=== PATIENT | female | born 1950 | race Caucasian/White ===

== ENCOUNTER → 2021-12-25 10:50 | Outpatient (BNVA) | payer MEDICARE, SELFPAY | PROVIDERS: PCP Internal Medicine; Visit Provider Nurse Practitioner Family | DX: G20 Parkinson's disease (principal) | CPT/HCPCS: 99212 ==

== ENCOUNTER → 2022-04-30 10:30 | Outpatient (BNVA) | payer MEDICARE, SELFPAY | PROVIDERS: PCP Internal Medicine; Visit Provider Nurse Practitioner Family | DX: G20 Parkinson's disease (principal) | CPT/HCPCS: 99212 ==

== ENCOUNTER → 2022-09-03 11:01 | Outpatient (BNVA) | payer MEDICARE, SELFPAY | PROVIDERS: PCP Family Medicine; Visit Provider Nurse Practitioner Family | DX: G20 Parkinson's disease (principal); R29.898 Other symptoms and signs involving the musculoskeletal system | CPT/HCPCS: 99212 ==

== ENCOUNTER → 2022-12-31 10:59 | Outpatient (BNVA) | payer MEDICARE, SELFPAY | PROVIDERS: PCP Family Medicine; Visit Provider Nurse Practitioner Family | DX: G20 Parkinson's disease (principal); I49.9 Cardiac arrhythmia, unspecified; E03.9 Hypothyroidism, unspecified; R29.898 Other symptoms and signs involving the musculoskeletal system | CPT/HCPCS: 99212 ==

== ENCOUNTER 2023-05-02 11:12 | Outpatient (AMB) | payer MEDICARE, SELFPAY ==
[2023-05-02 11:15] VITALS: BP 140/80; PULSE 81; O2SAT 97; BMI 29.3
--- NOTE | 2023-05-02 11:15 | MHC.OFFVIS ---
Intake Vital Signs 05/02/23 11:15 Height 5 ft 1 in Weight 155 lb 4 oz BMI 29.3 BP 140/80 H Blood Pressure Location Rt brachial Position Sitting Pulse 81 Pulse Source Pulse Oximeter Pulse Oximetry (%) 97 Oxygen Delivery Method Room Air Intake Visit Reasons: 4m Follow up parkinson Intake Note: Pt presents as a 4 month f/u for Parkinsons. Pt states shes doing good. Things are about the same. Tube Backer Required: No Allergies No Known Allergies Allergy (Verified 05/02/23 11:18) HPI HPI Comments History of Present Illness Details 73-yr-old female presents for f/u visit. Pt denies any significant interval medical history changes. Pt states she believes her echo stress test was normal. Pt's current PD medication regimen: Rasagiline 1mg qd. Pt's primary concerns are: No particular concerns Right-handed pt. ADL's: Ind Swallowing:? No issues Cough:? No issues Drooling: Some drooling at night. Orthostatic lightheadedness:? Mild- stands slowly Constipation:? None Freezing:? Does not occur Stiffness: Noticed some increased stiffness Tremor: LUE tremor stable. Noticing an intermittent rest RUE tremor as well now. Falls:? None Hallucinations:? None Memory:? Memory is good Sleep:? Sleeping well- but has more nocturia. Denies snoring. 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 Derm appt w/ Dr Kemp. ? PFS Medical History Rosacea Family History Mother Breast cancer Father Heart attack Social History (Updated 05/02/23 @ 11:21 by Porsha Arias CMA) Household Members: None Alcohol intake: current Alcohol intake frequency: holidays/special occasions only Patient Tobacco Use Status: Never used Tobacco Current occupational status: retired Review of Systems Const All systems reviewed & are unremarkable except as noted in HPI and below Physical Exam Vital Signs: Last Vital Signs Pulse 81 05/02/23 11:15 BP 140/80 H 05/02/23 11:15 Pulse Ox 97 05/02/23 11:15 Oxygen Delivery Method Room Air 05/02/23 11:15 BMI result Body Mass Index 29.3 Const General: cooperative and no acute distress Resp Effort & Inspection: normal respiratory effort and able to speak in complete sentences Neuro Other: Expression:? Mild decreased expression and blink, mild left facial droop Voice:? Soft voice Tremor:? Left upper extremity rest and spread of movement tremor, mild intermittent RUE rest tremor Tone:?Left > Right upper extremity tone FFM:? Mildly decreased in left upper extremity Foot taps:? Mildly decrease in left lower extremity Gait:? Stands okay, decreased arm swing, stride okay General: patient oriented x3 and CN's II-XI intact bilaterally Cognition (Neuro): normal cognition Motor exam (neuro): 5/5 motor strength present throughout Assessment & Plan Assessment & Plan (1) Parkinson's disease: Code(s): G20 - Parkinson's disease (2) Rigidity: Code(s): R29.898 - Other symptoms and signs involving the musculoskeletal system Plan Continue?Rasagiline 1mg qd. Continue regular exercise- walking and yoga. Dermatology- routine f/u. f/u in 4 months or sooner prn new/worsening s/s. Coding Level of Care Code Est Pt Level 4 (06007) Diagnoses Parkinson's disease G20 Rigidity R29.898
== END 2023-05-02 11:42 | disposition home or self-care (01) ==
PROVIDERS: Visit Provider Nurse Practitioner Family
DX: G20 Parkinson's disease (principal); R29.898 Other symptoms and signs involving the musculoskeletal system
CPT/HCPCS: 99214

== ENCOUNTER → 2023-05-02 11:12 | Outpatient (BNVA) | payer MEDICARE, SELFPAY | PROVIDERS: Visit Provider Nurse Practitioner Family | DX: G20 Parkinson's disease (principal); R29.898 Other symptoms and signs involving the musculoskeletal system | CPT/HCPCS: 99212 ==

== ENCOUNTER 2023-09-02 11:28 | Outpatient (AMB) | payer MEDICARE, SELFPAY ==
--- NOTE | 2023-09-02 11:33 | A.OFFVIS_ITS ---
Intake Vital Signs 09/02/23 11:36 Height 5 ft 1 in Weight 157 lb 2 oz BMI 29.7 BP 126/74 Blood Pressure Location Rt brachial Position Sitting Pulse 80 Pulse Source Pulse Oximeter Pulse Oximetry (%) 97 Oxygen Delivery Method Room Air Intake Visit Reasons: 4m Follow up parkinson-Confirmed Intake Note: Patient presents for 4 month follow up. Allergies No Known Allergies Allergy (Verified 09/02/23 11:39) Medication List - Last Reconciled 09/02/23 by YU Dawn albuterol sulfate 90 mcg/actuation 0 mcg inhalation amlodipine 10 mg PO DAILY benzoyl peroxide 5% (Acne Medication) topical clindamycin phosphate 1% 1 appl topical DAILY fluticasone propionate 110 mcg/actuation (Flovent HFA) 2 puffs inhalation BID levothyroxine 25 mcg PO DAILY ofxpdvlq-hocnrtb-aytz-lutein tabs PO DAILY rasagiline 1 mg PO DAILY 30 days rivaroxaban (Xarelto) 20 mg PO DAILY HPI HPI Comments History of Present Illness Details 73-yr-old female presents for f/u visit. Pt did have a benign skin growth excised from her back through derm. Pt's current PD medication regimen: Rasagiline 1mg qd. Pt's primary concerns are: Increased stiffness. Pt curious about how her PD will progress Right-handed pt. ADL's: Ind Swallowing:?No issues Cough:? No issues Drooling: Some drooling at night. Orthostatic lightheadedness:?Denies Constipation:? None Freezing:? Does not occur Stiffness: More stiffness when walking. May be stiffer and lsower after sitting for a while or now even getting out of the car. Notices that walking with a shopping cart makes a difference. Tremor: LUE tremor stable. Noticing more RUE tremor. Falls:? None Hallucinations:?In May, she did she see a white tent in her neighbor's yard- she thinks this might have been a hallucination. Memory:?Memory is good- keeps lists but always has. Sleep:? Sleeping well. Denies snoring. 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 [facility] Medical History (Updated 09/02/23 @ 12:19 by YU Dawn) Parkinson's disease Rosacea Family History Mother Breast cancer Father Heart attack Household Members: None Alcohol intake: current Alcohol intake frequency: holidays/special occasions only Patient Tobacco Use Status: Never used Tobacco Current occupational status: retired Review of Systems Const All systems reviewed & are unremarkable except as noted in HPI and below Physical Exam Vital Signs: Last Vital Signs Pulse 80 09/02/23 11:36 BP 126/74 09/02/23 11:36 Pulse Ox 97 09/02/23 11:36 Oxygen Delivery Method Room Air 09/02/23 11:36 BMI result Body Mass Index 29.7 Const General: cooperative and no acute distress Resp Effort & Inspection: normal respiratory effort and able to speak in complete sentences Neuro Other: General: A&O x's 3 Expression:? Mild decreased expression and blink, mild left facial droop Voice:? Soft voice Tremor:? Left upper extremity rest and spread of movement tremor, mild intermittent RUE rest tremor Tone:?Left > Right upper extremity tone FFM:? Mildly decreased in left upper extremity Foot taps:? Mildly decreased- today more so on right Gait:? Stands okay, decreased arm swing, stride okay Assessment & Plan Assessment & Plan (1) Rigidity: Code(s): R29.898 - Other symptoms and signs involving the musculoskeletal system (2) Parkinson's disease without dyskinesia: Code(s): G20.A1 - Parkinson's disease without dyskinesia, without mention of fluctuations Plan For pt's question about how her PD will progress- explained typically 1st 10 yrs after dx is slow progression. Discussed adding dopaminergic tx for stiffness- pt declines at this time. Continue?Rasagiline 1mg qd. Try doing foot taps after sitting for prolonged periods. Continue regular exercise- walking and yoga. Dermatology- f/u as scheduled. Future considerations- Trial adjuncting w/ dopaminergic tx. f/u in 6 months or sooner prn new/worsening s/s. Medications: Refilled rasagiline 1 mg PO DAILY 30 days 90 tabs 1RF Coding Level of Care Code Est Pt Level 4 (05298) Diagnoses Rigidity R29.898 Parkinson's disease without dyskinesia G20.A1
[2023-09-02 11:36] VITALS: BP 126/74; PULSE 80; O2SAT 97; BMI 29.7
== END 2023-09-02 12:16 | disposition home or self-care (01) ==
PROVIDERS: PCP Family Medicine; Visit Provider Nurse Practitioner Family
DX: R29.898 Other symptoms and signs involving the musculoskeletal system (principal); G20.A1 Parkinson's disease without dyskinesia, without mention of fluctuations
CPT/HCPCS: 99214

== ENCOUNTER → 2023-09-02 11:28 | Outpatient (BNVA) | payer MEDICARE, SELFPAY | PROVIDERS: PCP Family Medicine; Visit Provider Nurse Practitioner Family | DX: G20.A1 Parkinson's disease without dyskinesia, without mention of fluctuations (principal); R29.898 Other symptoms and signs involving the musculoskeletal system | CPT/HCPCS: 99212 ==

== ENCOUNTER 2024-02-24 11:41 | Outpatient (AMB) | payer MEDICARE, SELFPAY ==
--- NOTE | 2024-02-24 11:41 | MHC.OFFVIS ---
Vital Signs 02/24/24 11:42 Height 5 ft 1 in Weight 153 lb BMI 28.9 BP 130/78 Blood Pressure Location Rt brachial Position Sitting Pulse 77 Pulse Source Pulse Oximeter Pulse Oximetry (%) 97 Oxygen Delivery Method Room Air Intake Visit Reasons: 6 mnts f/u for Parkinson's-CONF Intake Note: Patient presents for follow up parkinson's Allergies No Known Allergies Allergy (Verified 02/24/24 11:44) Medication List - Last Reconciled 02/24/24 by YU Dawn albuterol sulfate 90 mcg/actuation 0 mcg inhalation amlodipine 10 mg PO DAILY benzoyl peroxide 5% (Acne Medication) topical clindamycin phosphate 1% 1 appl topical DAILY fluticasone propionate 110 mcg/actuation (Flovent HFA) 2 puffs inhalation BID levothyroxine 25 mcg PO DAILY uyjrqitd-vzqbtoh-bgek-lutein tabs PO DAILY rasagiline 1 mg PO DAILY 90 days rivaroxaban (Xarelto) 20 mg PO DAILY HPI Comments Details: 73-yr-old female presents for f/u visit. Pt denies any significant interval medical history changes. Pt reports she had an interval echocardiogram- was normal. Pt's current PD medication regimen: Rasagiline 1mg qd. Pt's primary concerns are: Noticing an intermittent- left upper arm region aching pain, whcih comes out of the blue- and self-subsides within 30 minutes. She is noticing that she is more easily tired- finds herself becoming more tired after walking on the treadmill after 20 minutes, but used to be able to do 30 minutes. Right-handed pt. ADL's: Ind Swallowing:?No issues Cough:? No issues Drooling: Some drooling at night. Orthostatic lightheadedness:?Denies Constipation:? None Freezing:? Does not occur Stiffness: Gait is stiffer. Tremor: LUE > RUE tremor is more consistent. Falls:? None. Has an apple watch now just in case. Hallucinations:?Denies. Memory:?Memory is good- keeps lists but always has. Sleep:? Sleeping well. Denies snoring. Exercise: Doing her PD class twice a week- able to do this, but is tired by the end of the class. COUNTS INCLUDE 234 BEDS AT THE [facility] Medical History (Updated 02/24/24 @ 12:33 by YU Dawn) Parkinson's disease Rosacea Family History Mother Breast cancer Father Heart attack Social History Household Members: None Alcohol intake: current Alcohol intake frequency: holidays/special occasions only Patient Tobacco Use Status: Never used Tobacco Current occupational status: retired Review of Systems Const All systems reviewed & are unremarkable except as noted in HPI and below Physical Exam Vital Signs: Last Vital Signs Pulse 77 02/24/24 11:42 BP 130/78 02/24/24 11:42 Pulse Ox 97 02/24/24 11:42 Oxygen Delivery Method Room Air 02/24/24 11:42 BMI result Body Mass Index 28.9 Const General: cooperative and no acute distress Resp Effort & Inspection: normal respiratory effort and able to speak in complete sentences Neuro Other: General: A&O x's 3 Expression:? Mild decreased expression and blink, mild left facial droop Voice:? Soft voice Tremor:? Left upper extremity rest and spread of movement tremor, mild intermittent RUE rest tremor Tone:?Increased Left > Right upper extremity rigidity Dyskinesia: None FFM:? BUE L > R mild bradykiensia Foot taps:? BLE L > R bradykinesia Gait:? Stands okay, decreased arm swing, short steps, slower, but steady gait Assessment & Plan Assessment & Plan (1) Parkinson's disease without dyskinesia: Code(s): G20.A1 - Parkinson's disease without dyskinesia, without mention of fluctuations Category: Medical (2) Rigidity: Code(s): R29.898 - Other symptoms and signs involving the musculoskeletal system Category: Medical (3) Altered gait: Code(s): R26.9 - Unspecified abnormalities of gait and mobility Category: Medical Plan Start CD-LD 25-100mg 1/2 - 1 tab bid taken w/ cracker at least 30 minutes prior to - in hopes this lessens rigidity and improves endurance. Reviewed common s/e's to monitor for- OH, GI upset, dyskineisa, hallucinations. Continue?Rasagiline 1mg qd. Continue regular exercise- PD exercises, walking, and yoga. Dermatology- f/u as scheduled. f/u in 6 months or sooner prn new/worsening s/s. Medications: New carbidopa-levodopa 25-100 mg take w/ a cracker 30 minutes before breakfast and dinner, 1 tab PO BID 30 days 60 tabs 3RF Coding Level of Care Code Est Pt Level 4 (53369) Diagnoses Parkinson's disease without dyskinesia G20.A1 Rigidity R29.898 Altered gait R26.9
[2024-02-24 11:42] VITALS: BP 130/78; PULSE 77; O2SAT 97; BMI 28.9
== END 2024-02-24 12:30 | disposition home or self-care (01) ==
PROVIDERS: PCP Family Medicine; Visit Provider Nurse Practitioner Family
DX: G20.A1 Parkinson's disease without dyskinesia, without mention of fluctuations (principal); R29.898 Other symptoms and signs involving the musculoskeletal system; R26.9 Unspecified abnormalities of gait and mobility
CPT/HCPCS: 99214

== ENCOUNTER → 2024-02-24 11:41 | Outpatient (BNVA) | payer MEDICARE, SELFPAY | PROVIDERS: PCP Family Medicine; Visit Provider Nurse Practitioner Family | DX: G20.A1 Parkinson's disease without dyskinesia, without mention of fluctuations (principal); R29.898 Other symptoms and signs involving the musculoskeletal system; R26.9 Unspecified abnormalities of gait and mobility | CPT/HCPCS: 99212 ==

== ENCOUNTER 2024-09-14 11:00 | Outpatient (AMB) | payer MEDICARE, SELFPAY ==
--- NOTE | 2024-09-14 11:03 | A.OFFVIS_ITS ---
Vital Signs 09/14/24 11:04 Height 5 ft 1 in Weight 144 lb BMI 27.2 BP 112/72 Blood Pressure Location Rt brachial Position Sitting Intake Visit Reasons: 7 Month F/U Intake Note: Patient presents for 7 month follow up Allergies No Known Allergies Allergy (Verified 09/14/24 11:05) Medication List - Last Reconciled 09/14/24 by Tessa Dempsey PA-C albuterol sulfate 90 mcg/actuation 0 mcg inhalation amlodipine 10 mg PO DAILY benzoyl peroxide 5% (Acne Medication) topical carbidopa-levodopa 25-100 mg 1 tab PO BID 30 days clindamycin phosphate 1% 1 appl topical DAILY fluticasone propionate 110 mcg/actuation (Flovent HFA) 2 puffs inhalation BID levothyroxine 25 mcg PO DAILY bxcoyojw-exkhtjq-rtwl-lutein tabs PO DAILY rasagiline 1 mg PO DAILY 90 days rivaroxaban (Xarelto) 20 mg PO DAILY HPI Comments Details: 73-yr-old female presents for f/u visit. Significant past medical history: Re-diagnosed with cancer with Lymphoma, and f/u in March 2024 she started chemo, then remission Jun. She sees Dr. Dow in [facility]. Pt's current PD medication regimen: Rasagiline 1mg qd. currently taking CD/LD 1/2 tablet BID for PD, will adjust to ensure she is taking 1mg PO BID. Pt's primary concerns are: Noticing an intermittent, left upper arm tremor and lower lip tremor is more pronounced. She is noticing that she is more easily tired- started yoga, and stopped due to fatigue, is useally very active, independent with ADLs and drives locally. She attends the [employer], at [facility] on [address] [facility] tomorrow Sep 15, 2024. Right-handed pt. ADL's: Ind Swallowing:?No issues Cough: Covid, August 2024. Drooling: Some drooling at night. Orthostatic lightheadedness:?Denies Constipation:? Denies Freezing:? Does not occur Stiffness: Gait is stiffer. Tremor: LUE > RUE tremor is more consistent. Falls:? None. Has an apple watch now just in case. Hallucinations:?Denies. Memory:?Memory is good- keeps lists but always has. Sleep:? Sleeping well. Denies snoring. Exercise: Doing her PD class twice a week- able to do this, but is tired by the end of the class. Patient seen by myself with Dr. Horowitz. [facility] Medical History Lymphoma Parkinson's disease Rosacea Family History Mother Breast cancer Father Heart attack Social History Household Members: None Alcohol intake: current Alcohol intake frequency: holidays/special occasions only Patient Tobacco Use Status: Never used Tobacco Current occupational status: retired Review of Systems Const All systems reviewed & are unremarkable except as noted in HPI and below ENT Reports Normal hearing present Neuro Reports Normal hearing present Physical Exam Vital Signs: Last Vital Signs BP 112/72 09/14/24 11:04 BMI result Body Mass Index 27.2 Const General: cooperative, comfortable and no acute distress Nutritional Appearance: average body habitus Orientation/consciousness: patient oriented x3 Eyes Pupils: Equal, round and reactive pupils present Resp Effort & Inspection: normal respiratory effort and able to speak in complete sentences Neuro General: patient oriented x3 and moves all extremities Cranial nerves: Yes CN's II-XII intact bilaterally, Yes Facial sensation intact/muscles of mastication intact, Yes Intact sense of smell present, Yes Equal, round and reactive pupils present, Yes Normal accommodation reflex present, Yes Bilaterally intact EOM present, Yes Nystagmus not present, Yes Normal facial strength present, Yes Midline tongue present, Yes Symmetric palate elevation present, Yes Normal hearing present, Yes Ability to bilaterally rotate head present, Yes Ability to bilaterally elevate shoulders present and Yes Other cranial nerve findings present (Lower lip tremor.) Cognition (Neuro): normal cognition Gait exam (Neuro): Other gait observations present (Fast paced, Narrow based gait, L. arm does not swing, stooped posture.) Motor exam (neuro): Abnormal motor strength present (weak at baseline, muscle strength and tone UE and LE ), Tremors during motor activity present (L. hands > R. hands and bottom lip.) and Abnormal muscle tone present (weak at baseline) Sensory Exam: Upper extremity sensory exam abnormal (LUE >RUE Tremor) Deep tendon reflexes (DTR's): Right triceps reflex intensity grade: 2+, Left triceps reflex intensity grade: 2+, Rt Biceps (C5, C6): 2+, Left biceps reflex intensity grade: 2+, Right brachioradialis reflex intensity grade: 2+, Left brachioradialis reflex intensity grade: 2+, Right patellar reflex intensity grade: 2+ and Left patellar reflex intensity grade: 2+ Coordination: maerog-xb-kbyt test normal Psych Appearance: grossly normal Attitude: cooperative Thought content: Normal thought content present Insight: Good insight present (Psych) Judgement: Good judgement present (Psych) Results Reviewed Results Reviewed: Requested documents from PCP/ DF. Assessment & Plan Assessment & Plan (1) Altered gait: Code(s): R26.9 - Unspecified abnormalities of gait and mobility Category: Medical (2) Rigidity: Code(s): R29.898 - Other symptoms and signs involving the musculoskeletal system Category: Medical (3) Parkinson's disease without dyskinesia: Code(s): G20.A1 - Parkinson's disease without dyskinesia, without mention of fluctuations Category: Medical Qualifiers: Fluctuating manifestations: with fluctuating manifestations Qualified Code(s): G20.A2 - Parkinson's disease without dyskinesia, with fluctuations Plan Start CD-LD 25-100mg 1 tab BID taken w/ cracker at least 30 minutes prior to - in hopes this lessens rigidity and improves endurance. Reviewed common s/e's to monitor for- OH, GI upset, dyskineisa, hallucinations. Continue?Rasagiline 1mg qd. Continue regular exercise- PD exercises, walking, and yoga. f/u in 6 months or sooner prn new/worsening s/s. Coding Level of Care Code Est Pt Level 4 (08074) Complex EM visit Add On G2211 Diagnoses Altered gait R26.9 Rigidity R29.898 Parkinson's disease without dyskinesia, with fluctuating manifestations G20.A2 Fluctuating manifestations: with fluctuating manifestations Time Spent (min) 30 Comment Worsening tremor
[2024-09-14 11:04] VITALS: BP 112/72; BMI 27.2
== END 2024-09-14 11:43 | disposition home or self-care (01) ==
PROVIDERS: PCP Family Medicine; Visit Provider Nurse Practitioner Family
DX: R26.9 Unspecified abnormalities of gait and mobility (principal); R29.898 Other symptoms and signs involving the musculoskeletal system; G20.A2 Parkinson's disease without dyskinesia, with fluctuations
CPT/HCPCS: 99214; G2211

== ENCOUNTER → 2024-09-14 11:00 | Outpatient (BNVA) | payer MEDICARE, SELFPAY | PROVIDERS: PCP Family Medicine; Visit Provider Nurse Practitioner Family | DX: G20.A2 Parkinson's disease without dyskinesia, with fluctuations (principal); R26.9 Unspecified abnormalities of gait and mobility; R29.898 Other symptoms and signs involving the musculoskeletal system | CPT/HCPCS: 99212 ==

== ENCOUNTER 2025-01-20 14:19 | Outpatient (AMB) | payer MEDICARE, SELFPAY ==
[2025-01-20 14:19] VITALS: BP 132/78; PULSE 83; O2SAT 96; BMI 28.2
--- NOTE | 2025-01-20 14:19 | MHC.OFFVIS ---
Vital Signs 01/20/25 14:19 Height 5 ft 1 in Weight 149 lb 2 oz BMI 28.2 BP 132/78 Blood Pressure Location Lt brachial Position Sitting Pulse 83 Pulse Source Pulse Oximeter Pulse Oximetry (%) 96 Oxygen Delivery Method Room Air Intake Visit Reasons: Follow Up 4mo-Conf Intake Note: patient following up for new med trial carbidopa-levodopa Allergies No Known Allergies Allergy (Verified 01/20/25 14:22) Medication List - Last Reconciled 01/20/25 by Alexandra Horowitz MD acyclovir 400 mg PO BID amlodipine 10 mg PO DAILY benzoyl peroxide 5% (Acne Medication) topical carbidopa-levodopa 25-100 mg 1 tab PO BID 30 days clindamycin phosphate 1% 1 appl topical DAILY fluticasone propionate 110 mcg/actuation (Flovent HFA) 2 puffs inhalation BID levothyroxine 25 mcg PO DAILY wcdbhkgp-winvxlu-uxke-lutein tabs PO DAILY rasagiline 1 mg PO DAILY 90 days rivaroxaban (Xarelto) 20 mg PO DAILY HPI Comments Details: 74-yr-old Right handed female presents for f/u visit.she reports numbness in her toes that started 2-3 weeks ago. she denies back pain.she stopped chemo in Jun 2024. she denies pain - more tingling than numbness in her toes.it is worse when she is wearing shoes . Significant past medical history: Re-diagnosed with cancer with Lymphoma, and f/u in March 2024 she started chemo, then remission Jun. She sees Dr. Dow in [facility]. Pt's current PD medication regimen: Rasagiline 1mg qd. currently taking CD/LD 1 tab bid . Pt's primary concerns are: Noticing an intermittent, left upper arm tremor and lower lip tremor is more pronounced. She is noticing that she is more easily tired- started yoga, and stopped due to fatigue, is usually very active, independent with ADLs and drives locally. Right-handed pt. ADL's: Ind Swallowing:?No issues Cough: Covid, August 2024. Drooling: Some drooling at night. Orthostatic lightheadedness:?Denies Constipation:? Denies Freezing:? Does not occur Stiffness: Gait is better since she increased the carbidopa/levodopa dose. Tremor: LUE > RUE tremor is more consistent. Falls:? None. Has an apple watch now just in case. Hallucinations:?Denies. Memory:?Memory is good- keeps lists but always has. Sleep:? Sleeping well. Denies snoring. [facility] Medical History (Updated 01/20/25 @ 14:42 by Alexandra Horowitz MD) Paresthesias Lymphoma Parkinson's disease Rosacea Family History Mother Breast cancer Father Heart attack Social History Household Members: None Alcohol intake: current Alcohol intake frequency: holidays/special occasions only Patient Tobacco Use Status: Never used Tobacco Current occupational status: retired Physical Exam Vital Signs: Last Vital Signs Pulse 83 01/20/25 14:19 BP 132/78 01/20/25 14:19 Pulse Ox 96 01/20/25 14:19 Oxygen Delivery Method Room Air 01/20/25 14:19 BMI result Body Mass Index 28.2 Const General: cooperative, comfortable and no acute distress Nutritional Appearance: average body habitus Orientation/consciousness: patient oriented x3 Eyes Pupils: Equal, round and reactive pupils present Resp Effort & Inspection: normal respiratory effort and able to speak in complete sentences Neuro Other: mild decreased facial expression and blink Mild left UE rest tremors normal speech Normal tone . Mild stoop, decreased arm swing on the right General: patient oriented x3 and moves all extremities Cranial nerves: Yes CN's II-XII intact bilaterally, Yes Facial sensation intact/muscles of mastication intact, Yes Intact sense of smell present, Yes Equal, round and reactive pupils present, Yes Bilaterally intact EOM present, Yes Normal facial strength present, Yes Midline tongue present, Yes Symmetric palate elevation present, Yes Ability to bilaterally rotate head present and Yes Other cranial nerve findings present Cognition (Neuro): normal cognition Gait exam (Neuro): Other gait observations present (Fast paced, Narrow based gait, L. arm does not swing, stooped posture.) Coordination: jddehj-co-edmn test normal Psych Appearance: grossly normal Attitude: cooperative Thought content: Normal thought content present Insight: Good insight present (Psych) Judgement: Good judgement present (Psych) Assessment & Plan Assessment & Plan (1) Parkinson's disease without dyskinesia: Code(s): G20.A1 - Parkinson's disease without dyskinesia, without mention of fluctuations Category: Medical Qualifiers: Fluctuating manifestations: with fluctuating manifestations Qualified Code(s): G20.A2 - Parkinson's disease without dyskinesia, with fluctuations (2) Paresthesias: Code(s): R20.2 - Paresthesia of skin Category: Medical Plan Continue sinemet 25-100mg 1 tab BID taken w/ cracker at least 30 minutes prior to - in hopes this lessens rigidity and improves endurance. Reviewed common s/e's to monitor for- OH, GI upset, dyskineisa, hallucinations. Continue?Rasagiline 1mg qd. Continue regular exercise- PD exercises, walking, and yoga. Start alpha lipoic acid 300-500mg qd for paresthesias - likley chemo effect Medications: New alpha lipoic acid 300 mg PO DAILY 30 caps 6RF Coding Level of Care Code Est Pt Level 4 (45539) Complex EM visit Add On G2211 Diagnoses Parkinson's disease without dyskinesia, with fluctuating manifestations G20.A2 Fluctuating manifestations: with fluctuating manifestations Paresthesias R20.2
--- OUTSIDE RECORDS SUMMARY | 2025-01-20 17:06 | XMS_ITS | Encounter Summary ---
Author Organization [facility] Address [address] [place] [address] Care Team Providers Care Direct Service Professional Name Role Phone Torsten Hernandez MD Primary Care Provider [phone] Haris Jo MD Primary Care Provider Unavailab Grace Rahman MD Primary Care Provider [phone] Talya Webber MD Primary Care Provider + Arun Wiggins MD Unavailable Unavailable Joyce Sanchez NP Unavailable [phone] Reason for Visit * Reason Onset Date Comments refill request 02/02/2016 Encounter Details Date Type Department Care Team Description 02/02/2016 Refill Adult Medicine [address] [id number] Torsten Hernandez MD [address] [place] [address] [phone] refill request Social History Tobacco Use Types Packs/Day Years Used Date Smoking Tobacco: Never Alcohol Use Standard Drinks/Week Comments No 0 (1 standard drink = 0.6 oz pur e alcohol) 2 glasses of wine /month Sex Assigned at Date Recorded Not on file Job Start Date Occupation Industry Not on file Not on file Not on file documented as of this encounter Miscellaneous Notes * Telephone Encounter - Bessie Pinedaileana - 02/02/2016 3:18 PM EDT Patient would like script to be: E-PRESCRIBED/FAXED TO PHARMACY WHEN WAS THE PATIENT'S LAST APPOINTMENT IN ADULT MEDICINE? 08/31/15 WHEN WAS THE LAST TIME THE PATIENT SAW THEIR PCP? Same as above Does patient have an upcoming appointment? No-[facility] due to refill request. Appt due may (THE MEDICATION REQUESTED IS ON THE MED LIST ABOVE) All of the medications requested were on the CURRENT MEDS list Did you check the Pharmacy information above?: YES Patient wants: 90 -day supply Is this a mail order prescription request ? YES Patients current insurance carrier is: Payor: MEDICARE-[employer] / Plan: MEDICARE-[employer] / Product Type: MEDICARE [id number] documented in this encounter Plan of Treatment Not on file documented as of this encounter Visit Diagnoses Not on filedocumented in this encounter Care Teams Direct Service Professional Relationship Specialty Start Date End Date Torsten Hernandez MD [address] [place] [address] PCP - General Internal Medicine 10/24/11 02/19/21 Haris Jo MD [address] [place] [address] PCP - General Internal Medicine 02/20/21 07/23/21 Grace Puga MD [address] [place] [address] PCP - General Internal Medicine 07/24/21 05/07/22 Talya Webber MD [address] [place] [address] PCP - General Internal Medicine 05/08/22 Arun Wiggins MD [address] [place] [address] Specialist Cardiovascular Disease 11/16/22 4 Joyce Sanchez NP [address] [place] [address] Nurse Practitioner Cardiology 05/27/24 documented as of this encounter
--- OUTSIDE RECORDS SUMMARY | 2025-01-20 17:06 | XMS_ITS | Encounter Summary ---
Author Organization [facility] Address [address] [place] [address] Care Team Providers Care Machine Cementer Name Role Phone Grace Puga MD Primary Care Provider [phone] Talya Webber MD Primary Care Provider + Arun Wiggins MD Unavailable Unavailable Joyce Sanchez NP Unavailable [phone] Encounter Details Date Type Department Care Team Description 03/13/2022 Hat Parts Cutter Machine Report Medical Records [address] [place] [address] Jovany Dow MD Social History Tobacco Use Types Packs/Day Years Used Date Smoking Tobacco: Never Smokeless Tobacco: Never Alcohol Use Standard Drinks/Week Comments No 0 (1 standard drink = 0.6 oz pur e alcohol) 2 glasses of wine /month Sex Assigned at Date Recorded Not on file Job Start Date Occupation Industry Not on file Not on file Not on file documented as of this encounter Plan of Treatment Not on file documented as of this encounter Procedures Procedure Name Priority Date/Time Associated Diagnosis Comments OUTSIDE LAB Routine 03/13/2022 documented in this encounter Results * OUTSIDE LAB (03/13/2022) Provider Default LAB documented in this encounter Visit Diagnoses Not on filedocumented in this encounter Care Teams Machine Cementer Relationship Specialty Start Date End Date Grace Puga MD [address], [place] [phone] PCP - General Internal Medicine 07/24/21 05/07/22 Talya Webber MD [address] [place] [address] PCP - General Internal Medicine 05/08/22 Arun Wiggins MD [address] [place] [address] Specialist Cardiovascular Disease 11/16/22 4 Joyce Sanchez NP [address] [place] [address] Nurse Practitioner Cardiology 05/27/24 documented as of this encounter
--- OUTSIDE RECORDS SUMMARY | 2025-01-20 17:06 | XMS_ITS | Encounter Summary ---
Author Organization [facility] Address [address] [place] [address] Care Team Providers Care Coarse Wire Drawer Name Role Phone Torsten Hernandez MD Primary Care Provider + [phone] Haris Jo MD Primary Care Provider Unavailab Grace Rahman MD Primary Care Provider [phone] Talya Webber MD Primary Care Provider + Arun Wiggins MD Unavailable Unavailable Joyce Sanchez NP Unavailable [phone] Encounter Details Date Type Department Care Team Description 10/25/2017 Copra Sampler Report Medical Records [address] [place] [address] [facility] [place] Social History Tobacco Use Types Packs/Day Years [...] on filedocumented in this encounter Care Teams Coarse Wire Drawer Relationship Specialty Start Date End Date Torsten Hernandez MD [address] [place] [address] PCP - General Internal Medicine 10/24/11 02/19/21 Haris Jo MD [address] [place] [address] PCP - General Internal Medicine 02/20/21 07/23/21 Grace Puga MD [address] [place] [address] PCP - General Internal Medicine 07/24/21 05/07/22 Talya Webber MD [address] [place] [address] PCP - General Internal Medicine 05/08/22 Arun Wiggins MD [address] [place] [address] Specialist Cardiovascular Disease 11/16/22 4 Joyce Sanchez NP [address] [place], [place] [phone] Nurse Practitioner Cardiology 05/27/24 documented as of this encounter
--- OUTSIDE RECORDS SUMMARY | 2025-01-20 17:06 | XMS_ITS | Encounter Summary ---
Author Organization [facility] Address [address] [place] [address] Care Team Providers Care Miner Name Role Phone Torsten Hernandez MD Primary Care Provider + [phone] Haris Jo MD Primary Care Provider Unavailab Grace Rahman MD Primary Care Provider [phone] Talya Webber MD Primary Care Provider + Arun Wiggins MD Unavailable Unavailable Joyce Sanchez NP Unavailable [phone] Encounter Details Date Type Department Care Team Description 10/08/2017 Screen Writer Report Medical Records [address] [place] [address] [facility] [place] Social History Tobacco Use Types Packs/Day Years [...] on filedocumented in this encounter Care Teams Miner Relationship Specialty Start Date End Date Torsten Hernandez MD [address] [place] [address] PCP - General Internal Medicine 10/24/11 02/19/21 Haris Jo MD [address] [place] [address] PCP - General Internal Medicine 02/20/21 07/23/21 Grace Puga MD [address] [place] [address] PCP - General Internal Medicine 07/24/21 05/07/22 Talya Webber MD [address] [place] [address] PCP - General Internal Medicine 05/08/22 Arun Wiggins MD [address] [place] [address] Specialist Cardiovascular Disease 11/16/22 4 Joyce Sanchez NP [address] [place], [place] [phone] Nurse Practitioner Cardiology 05/27/24 documented as of this encounter
--- OUTSIDE RECORDS SUMMARY | 2025-01-20 17:06 | XMS_ITS | Encounter Summary ---
Author Organization [facility] Address [address] [place] [address] Care Team Providers Care Coffee Maker Servicer Name Role Phone Grace Puga MD Primary Care Provider [phone] Talya Webber MD Primary Care Provider + Arun Wiggins MD Unavailable Unavailable Joyce Sanchez NP Unavailable [phone] Encounter Details Date Type Department Care Team Description 08/14/2021 [facility] [address] [place] [address] Abstract, Provider Social History Tobacco Use Types Packs/Day Years Used Date Smoking Tobacco: Never Smokeless Tobacco: Never Alcohol Use Standard Drinks/Week Comments No 0 (1 standard drink = 0.6 oz pur e alcohol) 2 glasses of wine /month Sex Assigned at Date Recorded Not on file Job Start Date Occupation Industry Not on file Not on file Not on file COVID-19 Exposure Response Date Recorded In the last month, have you been in contact with someone who was confirmed or suspected to have Coronavirus / COVID-19? No / Unsure 07/24/2021 1:08 PM EDT documented as of this encounter Plan of Treatment Not on file documented as of this encounter Visit Diagnoses Not on filedocumented in this encounter Care Teams Coffee Maker Servicer Relationship Specialty Start Date End Date Grace Puga MD [address] [place] [address] PCP - General Internal Medicine 07/24/21 05/07/22 Talya Webber MD [address] [place] [address] [phone] PCP - General Internal Medicine 05/08/22 Arun Wiggins MD [address] [place] [address] Specialist Cardiovascular Disease 11/16/22 4 Joyce Sanchez NP [address] [place] [address] Nurse Practitioner Cardiology 05/27/24 documented as of this encounter
--- OUTSIDE RECORDS SUMMARY | 2025-01-20 17:06 | XMS_ITS | Encounter Summary ---
Author Organization [facility] Address [address] [place] [address] Care Team Providers Care Golf Cart Maker Name Role Phone Torsten Hernandez MD Primary Care Provider + [phone] Haris Jo MD Primary Care Provider Unavailab Grace Rahman MD Primary Care Provider [phone] Talya Webber MD Primary Care Provider + Arun Wiggins MD Unavailable Unavailable Joyce Sanchez NP Unavailable [phone] Encounter Details Date Type Department Care Team Description 05/30/2017 Associate Software Application Engineer Report Medical Records [address] [place] [address] Socrates Rose MD Social History Tobacco Use Types Packs/Day [...] on filedocumented in this encounter Care Teams Golf Cart Maker Relationship Specialty Start Date End Date Torsten Hernandez MD [address] [place] [address] PCP - General Internal Medicine 10/24/11 02/19/21 Haris Jo MD [address] [place] [address] PCP - General Internal Medicine 02/20/21 07/23/21 Graec Puga MD [address] [place] [address] PCP - General Internal Medicine 07/24/21 05/07/22 Talya Webber MD [address] [place] [address] PCP - General Internal Medicine 05/08/22 Arun Wiggins MD [address] [place], [place] [phone] Specialist Cardiovascular Disease 11/16/22 4 Joyce Sanchez NP [address] [place] [address] Nurse Practitioner Cardiology 05/27/24 documented as of this encounter
--- OUTSIDE RECORDS SUMMARY | 2025-01-20 17:06 | XMS_ITS | Encounter Summary ---
Author Organization [facility] Address [address] [place] [address] Care Team Providers Care Decision Support Analyst Name Role Phone Torsten Hernandez MD Primary Care Provider + [phone] Haris Jo MD Primary Care Provider Unavailab Grace Rahman MD Primary Care Provider [phone] Talya Webber MD Primary Care Provider + Arun Wiggins MD Unavailable Unavailable Joyce Sanchez NP Unavailable [phone] Encounter Details Date Type Department Care Team Description 11/17/2018 Speedboat Driver Report Medical Records [address] [place] [address] Fartun Tucker NP Social History Tobacco Use Types Packs/Day Years [...] on filedocumented in this encounter Care Teams Decision Support Analyst Relationship Specialty Start Date End Date Torsten Hernandez MD [address] [place] [address] PCP - General Internal Medicine 10/24/11 02/19/21 Haris Jo MD [address] [place] [address] PCP - General Internal Medicine 02/20/21 07/23/21 Grace Puga MD [address] [place] [address] PCP - General Internal Medicine 07/24/21 05/07/22 Talya Webber MD [address] [place] [address] PCP - General Internal Medicine 05/08/22 Arun Wiggins MD [address] [place] [address] Specialist Cardiovascular Disease 11/16/22 4 Joyce Sanchez NP [address] [place], [place] [phone] Nurse Practitioner Cardiology 05/27/24 documented as of this encounter
--- OUTSIDE RECORDS SUMMARY | 2025-01-20 17:06 | XMS_ITS | Encounter Summary ---
Author Organization [facility] Address [address] [place] [address] Care Team Providers Care Supervisor Contact Lens Name Role Phone Torsten Hernandez MD Primary Care Provider [phone] Haris Jo MD Primary Care Provider Unavailab Grace Rahman MD Primary Care Provider [phone] Talya Webber MD Primary Care Provider + Arun Wiggins MD Unavailable Unavailable Joyce Sanchez NP Unavailable [phone] Reason for Referral * Specialist (Routine) - Authorized/Booked Specialty Diagnoses / Procedures Referred By Contac t Referred To Contact Cardiology Diagnoses Dyspnea Procedures REFERRAL TO CARDIOLOGY Torsten Hernandez MD [address] [place] [address] Salvador Calles MD [address] [place] [address] Referral ID Status Reason Start Date Expiration Date V isits Requested Visits Authorized [id number] Authorized/B ooked 01/13/2013 01/13/2014 12 12 Reason for Visit * Reason Onset Date Comments TEST RESULTS 01/13/2013 Encounter Details Date Type Department Care Team Description 01/13/2013 Telephone Adult [address] [phone] Torsten Hernandez MD [address] [place] [address] TEST RESULTS Social History Tobacco Use Types Packs/Day Years [...] encounter Miscellaneous Notes * Telephone Encounter - Torsten Hernandez MD - 01/13/2013 3:33 PM EDT The patient. Will schedule echocardiogram, pulmonary function studies, cardiology consult * Telephone Encounter - Savanna Zamora M.A. - 01/13/2013 1:46 PM EDT Pt looking for answers as to why she is getting sob and a heavy chest with baptiste walking? * Telephone Encounter - Torsten Hernandez MD - 01/13/2013 10:23 AM EDT Letter was sent on Stress test was normal * Telephone Encounter - Savanna Zamora M.A. - 01/13/2013 10:18 AM EDT Please review and advise. * Telephone Encounter - Bárbara Aviles - 01/13/2013 10:07 AM EDT Inform patient: ANY URGENT OR ABNORMAL RESULTS WIILL RESULT IN A CALL BACK TO THE PATIENT RADHA. Type of test: :stress tests Date test was performed: January 06,,and Where was the test performed: [facility] Who ordered this test?: Dr Hernandez Is the doctor here today?: YES Can the message wait until the doctor returns?: NO IF PATIENT'S PCP IS NOT IN INSTRUCT PATIENT THAT THEY WILL RECEIVE A CALL BACK WHEN THE PCP IS IN THE OFFICE NEXT. 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 02 saturation, resting on room air, was normal at 97%. These results are most consistent with, but not diagnostic of, a reactive airways disease such as asthma. Torsten Hernandez MD PULMONOLOGY documented in this encounter Visit Diagnoses Diagnosis Dyspnea- Primary Other dyspnea and respiratory abnormality Dyspnea- Primary Other dyspnea and respiratory abnormality documented in this encounter Care Teams Supervisor Contact Lens Relationship Specialty Start Date End Date Torsten Hernandez MD [address] [place] [address] PCP - General Internal Medicine 10/24/11 02/19/21 Haris Jo MD [address] [place], [place] [phone] PCP - General Internal Medicine 02/20/21 07/23/21 Grace Puga MD [address] [place] [address] PCP - General Internal Medicine 07/24/21 05/07/22 Talya Webber MD [address] [place] [address] PCP - General Internal Medicine 05/08/22 Arun Wiggins MD [address] [place] [address] Specialist Cardiovascular Disease 11/16/22 4 Joyce Sanchez NP [address] [place] [address] Nurse Practitioner Cardiology 05/27/24 documented as of this encounter
--- OUTSIDE RECORDS SUMMARY | 2025-01-20 17:06 | XMS_ITS | Clinical Summary ---
Author Organization [facility] Address [address] [place] [address] Phone Care Team Providers Care Online Merchandising Specialist Name Role Phone Talya Webber MD Primary Care Pr ovider Allergies No known active allergies Medications benzoyl peroxide 5 % gel Apply topically daily as needed. Active carbidopa-levodop a (SINEMET) 25-100 mg per tablet Take 0.5 Tablets by mouth 2 times daily. Active multivit-min/foli c acid/lutein (CENTRUM SILVER ORAL) Take 1 Tablet by mouth daily. Active clindamycin phosphate 1 % gel, once daily Apply topically 2 times daily. Active famotidine (PEPCID) 20 mg tablet Take 1 Tablet by mouth 2 times daily. Active fluticasone furoate (Arnuity Ellipta) 100 mcg/actuation blister with device inhaler Inhale 1 Puff into the lungs daily. 06/18/20 24 Active gemcitabine HCl (GEMZAR IV) Inject into the vein. As directed Active palonosetron HCl (ALOXI IV) Inject into the vein. As directed Active pegfilgrastim (NEULASTA SUBQ) Inject into the skin. Given after chemo treatment Active rasagiline (AZILECT) 1 mg tablet Take 1 Tablet by mouth daily. 09/06/20 22 Active rituximab (RITUXAN IV) Inject into the vein. As directed Active rivaroxaban (Xarelto) 20 mg tablet TAKE 1 TABLET BY MOUTH EVERY DAY 02/24/20 24 Active DEXAMETHASONE ORAL Take 12 mg by mouth. As directed Active albuterol HFA (PROAIR HFA ; PROVENTIL HFA ; VENTOLIN HFA) 90 mcg/actuation inhaler Inhale 2 Puffs into the lungs every 4 hours as needed for Wheezing or Shortness of Breath (EMERGENCY USE ONLY). 11/08/19 23 Active allopurinoL (ZYLOPRIM) 300 mg tablet Take 1 Tablet by mouth daily. Active amLODIPine (NORVASC) 10 mg tabletIndications :Essential (primary) hypertension TAKE 1 TABLET BY MOUTH EVERY DAY 90 tablet 01/15/20 25 Active levothyroxine (SYNTHROID, LEVOTHROID) 25 mcg tabletIndications :Other specified hypothyroidism TAKE 1 TABLET BY MOUTH EVERY DAY 30 tablet 01/21/20 25 Active amLODIPine (NORVASC) 10 mg tablet Take 1 Tablet by mouth daily. 06/18/20 24 025 Discontinued levothyroxine (SYNTHROID, LEVOTHROID) 25 mcg tablet Take 1 Tablet by mouth daily. 06/18/20 24 025 Discontinued Active Problems Problem Noted Date Diagnosed Date Systolic murmur 12/05/2023 Overview (09/28/2024): Last Assessment & Plan: Soft systolic murmur appreciated during exam today. We will update surveillance echocardiogram to further evaluate for any valvular abnormalities. Dyspnea 11/29/2022 Overview (09/28/2024): Last Assessment & Plan: Denies perception of increased dyspnea. Atrial fibrillation (CMS/HCC V24, CMS/HCC V28) 0 11/08/2022 Overview (09/28/2024): Last Assessment & Plan: Patient today presenting in normal sinus rhythm. She continues to be anticoagulated with Xarelto with a [id number] score of 4. Reports she is tolerating this well with no bleeding issues. She is aware that she will need to seek emergent medical attention if she experiences any head trauma. Parkinson's disease (CMS/HCC V24, CMS/HCC V28) 0 11/08/2022 Subclinical hypothyroidism 11/08/2022 Endometrial thickening on ultrasound 03/15/2021 Overview (09/28/2024): CT scan done 03/07/2021 at [facility], referred to [facility] at [place]. Thyroid nodule 03/15/2021 Overview (09/28/2024): CT scan done at [facility] on 03/07/21 showed nodule in the right lobe of thyroid. Radiology mentions may represent radiology CKD (chronic kidney disease) stage 3, GFR 30-59 ml/min ([facility]/HCC V24, CMS/HCC V28) 08/22/2020 Hyperlipidemia 08/22/2020 Overview (09/28/2024): Last Assessment & Plan: Patient's last LDL cholesterol reading on 12/19/2023 was 143. Patient is not interested in starting any new medications right now while she is going through chemotherapy understandably. She will work on dietary changes and repeat lipid panel within 6 months. If LDL continues to be high, will consider initiating statin at this time. 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 She was treated with R-Janelle x4 cycles, unfortuently with disease progression. 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 She received RCHOP x6 cycles, through May 2017 with persistent disease (mixed response). Now admitted for cycle #3 of RICE salvage chemotherapy. Tolerated cycle 1 and 2 without issues. --> . PET scan and liver biopsy on 04/02/24 confirmed relapsed DLBCL with staining negative for CD19, subset ~10% positive for CD20, and >30% positive for CD22. She started cycle 1 of reduced-dose R-GemOx on 04/17/24... to receive several cycles of chemotherapy with repeat PET scan thereafter. She has a FDG-avid R thyroid nodule- plan is for referral to endocrinology after 6 cycles of R-GemOx. Rosacea 08/31/2015 Asthma 03/18/2013 Overview (09/28/2024): Moderate to severe obstructive defect on pulmonary function studies 2013, w reversibility Overweight (BMI 25.0-29.9) 12/22/2012 Hypertension 11/25/2006 Overview (09/28/2024): Last Assessment & Plan: Patient's blood pressure currently under good control today at 136/68. She will continue taking the amlodipine 10 mg daily. She reports she is tolerating this well. Disorder of bone and cartilage 08/17/2005 Overview (09/28/2024): IMO update Encounters Date Type Department Care Team Description 01/15/2025 Telephone Adult Medicine [address] [phone] Talya Webber MD Referral (Dr Clemente - [facility]) 12/28/2024 2:23 PM EDT - 12/28/2024 11:59 PM EDT Hospital Encounter Radiology Department - [address] [phone] Abnormal mammogram Discharge Disposition: Home or Self Care 12/28/2024 2:23 PM EDT - 12/28/2024 11:59 PM EDT Hospital Encounter Radiology Department - [address] [phone] Abnormal mammogram Discharge Disposition: Home or Self Care 12/28/2024 Telephone Adult Medicine [address] [phone] Talya Webber MD Referral (Opthalmology) 12/22/2024 2:09 PM EDT - 12/22/2024 11:59 PM EDT Hospital Encounter Radiology Department - [address] [phone] Encounter for screening mammogram for breast cancer Discharge Disposition: Home or Self Care from Last 3 Months Immunizations Name Administration Dates Next Due Influenza trivalent, 0.5mL ( Fluad) 65yo and older 07/02/2024,06/17/2023,07/18/2022,06/19,06/07/2020,07/30/2018,07/06/2017 Influenza, Unspecified 06/16/2022,06/07/2019 Moderna Covid-19 Bivalent, O riginal + Ba.1 (Non-US Tradename Spikevax Bivalent) 07/05/2022 Moderna SARS-CoV-2 COVID-19, mRNA, LNP-S, preservative free 08/04/2021,12/30/2020,12/02/2020 Pneumococcal conjugate 13 va lent (Prevnar 13, PCV13) 2mo and older 03/01/2015 Pneumococcal polysaccharide 23 valent (Pneumovax 23) 2yo and older 04/23/2012 Td Tetanus diptheria (Tdvax) 7yo and older 05/08/2022,04/03/2004 Tdap Tetanus diptheria acell ular pertussis (Boostrix; Adacel) 7yo and older 04/23/2012 Zoster Live 05/27/2012 Zoster recombinant (Shingrix ) 19yo and older 08/01/2020,07/07/2020,12/01/2019,11/07 Surgical History Surgery Date Site/Laterality Comments OTHER SURGICAL HISTORY PROCEDURE: HISTORY OTHER; COMMENT: vag polyps 2010 WISDOM TOOTH EXTRACTION PROCEDURE: HISTORICAL WISDOM TEETH EXTRACTION COLONOSCOPY 2016 PROCEDURE: HISTORICAL COLONOSCOPY; COMMENT: dr aguero advised f/uCN 2020 OTHER SURGICAL HISTORY PROCEDURE: HISTORY OTHER; COMMENT: port for chemo BREAST BIOPSY Right PROCEDURE: BX BREAST; PERC NEEDLE CORE W/IMAG GUID; COMMENT: PT STATES OVER 20 YRS AGO BENIGN Medical History Medical History Date Comments Disorder of bone and cartila ge, unspecified 08/17/2005 DX:Disorder of bone and cart ilage, unspecified; COMMENT: DEXA scan scheduled for April 19, 2021 Non-Hodgkin's lymphoma in ad ult (CMS/HCC V24, CMS/HCC V28) 07/30/2018 DX:Non-Hodgkin's lymphoma i n adult (HCC); COMMENT: Treated at [facility], Dr. Jovany Dow MD [phone] telephone Essential (primary) hypertension DX:Essential (primary) hypertension Mild intermittent asthma, uncomplicated DX:Mild intermittent asthma, uncomplicated Thyroid nodule DX:Thyroid nodul e; COMMENT: CT scan done at [facility] on 03/07/21 showed nodule in the right lobe of thyroid. Radiology mentions may represent thyroid malignancy or thyroid adenoma. Endometrial thickening on ultrasound DX:Endometrial thickening on ultrasound; COMMENT: CT scan done 03/07/2021 at [facility], referred to [facility] at [place]. History of colonoscopy DX:Histor y of colonoscopy; COMMENT: 04/06/2021, repeat colonoscopy in 10 years Hypercalcemia 07/04/2017 DX:Hypercalcemia ; COMMENT: Last Assessment & Plan: Patient with hypercalcemia prior to admission to [facility] and on day of admission. She received 2L of IVF in clinic with improvement to her cCA. Ca remains within normal limits. Pancytopenia (CMS/HCC V24, [facility] V28) 07/04/2017 DX:Pancytopenia (HCC); COMME NT: Anemia and thrombocytopenia secondary to underlying disease/prior chemotherapy. - support with transfusions if plts <10, hct <24 Family History Medical History Relation Name Comments Hypertension Father Breast cancer Mother Hypertension Sister 1 Relation Name Status Comments Father (Age 83) CAD Mother (Age 60) [facility]ds[facility] also had 2 aunts with breast cancer Sister 1 Sister 2 Alive hypertension Son 1 Alive Son 2 Alive Social History Tobacco Use Types Packs/Day Years Used Date Smoking Tobacco: Never Smokeless Tobacco: Never Alcohol Use Standard Drinks/Week Comments Yes 0 (1 standard drink = 0.6 oz pur e alcohol) Comments No Sex and Gender Information Value Date Recorded Sex Assigned at Not on file Legal Sex Female 6:31 PM EST Gender Identity Not on file Sexual Orientation Not on file Obstetrics History Para Term AB IAB SAB Ectopic Multiple Livin g Live Births 2 2 2 2 Date Outcome GA Total Labor Labor/2nd/3rd Weight Sex Type Anes PTL Lucia A1 A5 Name Clin Term Term Last Filed Vital Signs Vital Sign Reading Time Taken Comments Blood Pressure 124/50 07/02/2024 11:11 AM EDT Pulse 76 07/02/2024 11:11 AM EDT Temperature - - Respiratory Rate - - Oxygen Saturation - - Inhaled Oxygen Concentration - - Weight 67.6 kg (149 lb) 07/02/2024 11:11 AM EDT Height 154.9 cm (5' 1 ) 07/02/2024 11:11 AM EDT Body Mass Index 28.15 07/02/2024 11:11 AM EDT Plan of Treatment Upcoming Encounters Date Type Department Care Team (Late st Contact Info) Description 02/05/2025 10:30 AM EDT Office Visit Adult Medicine [address] [phone] Jacqueline Oswald PA [address] [place] [address] Health Maintenance Due Date Last Done Comments Pneumococcal Vaccine: 50+ Years (3 of 3 - PPSV23, PCV20 or PCV21) 04/23/2017 03/01/2015, 04/23/2012 Colorectal Cancer Screening: Colonoscopy 09/12/2022 Depression Screening 09/12/2022 Social Influencers of Health Screening 09/12/2022 COVID-19 Vaccine ( season) 2024 08/08/2023, 07/05/2022, 08/04/2021, Additional history exists Medicare Annual Wellness Visit 06/17/2024 06/17/2023 Falls Risk Assessment 06/18/2025 06/18/2024 Hypertension/CHF/CAD Annual BMP Blood Test 12/14/2025 12/14/2024, 09/15/2024, 06/29/2024, Additional history exists Cholesterol Screening (Lipid Panel) 12/18/2028 12/19/2023, 12/15/2017 Osteoporosis Screening (Bone Density Screening) 04/19/2031 04/19/2021, 10/01/2018 DTaP,Tdap,and Td Vaccines (4 - Td or Tdap) 05/08/2032 05/08/2022, 04/23/2012, 04/03/2004 Zoster Vaccines Completed 08/01/2020, 10/0 10/2019, 12/01/2019, Additional history exists RSV Immunization Adult Patients Completed 08/22/2023 Hepatitis C Screening Completed 04/17/2024, 024 Influenza Vaccine Completed 07/02/2024, , 07/18/2022, Additional history exists Breast Cancer Screening Discontinued 12/29/19, 12/22/2024, 12/18/2023 HIB Vaccines Aged Out No longer eligi ble based on patient's age to complete this topic HPV Vaccines Aged Out No longer eligi ble based on patient's age to complete this topic Hepatitis A Vaccines Aged Out No long er eligible based on patient's age to complete this topic Hepatitis B Vaccines Aged Out No long er eligible based on patient's age to complete this topic IPV Vaccines Aged Out No longer eligi ble based on patient's age to complete this topic MMR Vaccines Aged Out No longer eligi ble based on patient's age to complete this topic Meningococcal ACWY Vaccine Aged Out N o longer eligible based on patient's age to complete this topic Meningococcal B Vaccine Aged Out No l onger eligible based on patient's age to complete this topic RSV Immunization Patients Under 20 months Aged Out No longer eligible based on patient's age to complete this topic Varicella Vaccines Aged Out No longer eligible based on patient's age to complete this topic Procedures Procedure Name Priority Date/Time Associated Diagnosis Comments US BREAST LIMITED RIGHT Routine 12/28/2024 2:50 PM EDT Abnormal mammogram MG MAMMO DIGITAL DIAGNOSTIC W VITALY RIGHT Routine 12/28/2024 2:35 PM EDT Abnormal mammogram MG MAMMO DIGITAL SCREENING W VITALY BILAT Routine 12/22/2024 2:24 PM EDT Encounter for screening mammogram for breast cancer ANNUAL BMP BLOOD TEST Routine 06/29/2024 FALLS RISK ASSESSMENT Routine 06/18/2024 HEPATITIS C SCREENING Routine 04/17/2024 LIPID PANEL Routine 12/19/2023 DXA BONE DENSITY STUDY 1+ SITS AXIAL SKEL Routine 04/19/2021 9:30 AM EDT Disorder of bone, unspecified Disorder of cartilage, unspecified from Last 3 Months or Most Recently Relevant to Health Maintenance Results * US Breast Limited Right (12/28/2024 2:50 PM EDT) Anatomical Region Laterality Modality Breast Right Ultrasound 12/28/2024 2:37 PM EDT Impressions 12/28/2024 3:01 PM EDT Morphologically normal right axillary lymph node lymph node corresponding to the mammographic finding. Benign. ??Findings and recommendations were conveyed to the patient. ? BI-RADS CATEGORY: 2 - BENIGN RECOMMENDATION: Return to annual mammography. Return to annual mammography. Return to annual mammography. Return to annual mammography. Mammo Location: [facility], [address] [place] [address], [id number], . -------- FINAL REPORT -------- Dictated By: Bárbara Liang Dictated Date: 12/28/2024 14:37 ET Assigned Physician: Bárbara Liang Reviewed and Electronically Signed By: Bárbara Liang Signed Date: 12/28/2024 15:01 ET Workstation ID: [id number] Transcribed By: Self Edit Transcribed Date: 12/28/2024 14:42 ET Narrative 12/28/2024 3:01 PM EDT CLINICAL: 74 years old, Female, indeterminate rounded morphology mass within the right axilla on screening mammogram of 12/22/2024. ??This area is adjacent to the patient's port. COMPARISON: Mammograms dating back to 05/04/2019 with most recent of 12/22/2024. ?? FINDINGS: MAMMOGRAPHY TECHNIQUE: Spot compression MLO view of the right breast was obtained digitally with 3-D mammogram (digital breast tomosynthesis). ??Computer-aided detection was utilized in evaluation of this exam (CAD). Rounded focal asymmetry adjacent to the port is a persistent finding. ??). ?? BREAST DENSITY: B - There are scattered areas of fibroglandular density. ULTRASOUND TECHNIQUE: Ultrasound evaluation of the right axilla was performed. There is a 0.6 x 0.5 x 0.7 cm lymph node with prominent fatty hilum behind the port. ?? Procedure Note Bárbara Liang MD - 12/28/2024 CLINICAL: 74 years old, Female, indeterminate rounded morphology masswithin the right axilla on screening mammogram of 12/22/2024. This areais adjacent to the patient's port. COMPARISON: Mammograms dating back to 05/04/2019 with most recent of12/22/2024. FINDINGS: MAMMOGRAPHY TECHNIQUE: Spot compression MLO view of the right breast was obtaineddigitally with 3-D mammogram (digital breast tomosynthesis).Computer-aided detection was utilized in evaluation of this exam (CAD). Rounded focal asymmetry adjacent to the port is a persistent finding. ). BREAST DENSITY: B - There are scattered areas of fibroglandular density. ULTRASOUND TECHNIQUE: Ultrasound evaluation of the right axilla was performed. There is a 0.6 x 0.5 x 0.7 cm lymph node with prominent fatty hilum behindthe port. IMPRESSION: Morphologically normal right axillary lymph node lymph node correspondingto the mammographic finding. Benign. Findings and recommendations were conveyed to the patient. BI-RADS CATEGORY: 2 - BENIGN RECOMMENDATION: Return to annual mammography. Return to annual mammography. Return toannual mammography. Return to annual mammography. Mammo Location: [facility], [address] [place] [address], [address], . -------- FINAL REPORT -------- Dictated By: Bárbara Liang Dictated Date: 12/28/2024 14:37 ET Assigned Physician: Bárbara Liang Reviewed and Electronically Signed By: Bárbara Liang Signed Date: 12/28/2024 15:01 ET Workstation ID: [id number] Transcribed By: Self Edit Transcribed Date: 12/28/2024 14:42 ET us Talya Webber MD IMG US PROCEDURE S Final Result * MG Mammo Digital Diagnostic w Vitaly Right (12/28/2024 2:35 PM EDT) Anatomical Region Laterality Modality Breast Right Mammography 12/28/2024 2:37 PM EDT Impressions 12/28/2024 3:01 PM EDT Morphologically normal right axillary lymph node lymph node corresponding to the mammographic finding. Benign. ??Findings and recommendations were conveyed to the patient. ? BI-RADS CATEGORY: 2 - BENIGN RECOMMENDATION: Return to annual mammography. Return to annual mammography. Return to annual mammography. Return to annual mammography. Mammo Location: [facility], [address] [place] [address], [id number], . -------- FINAL REPORT -------- Dictated By: Bárbara Liang Dictated Date: 12/28/2024 14:37 ET Assigned Physician: Bárbara Liang Reviewed and Electronically Signed By: Bárbara Liang Signed Date: 12/28/2024 15:01 ET Workstation ID: [id number] Transcribed By: Self Edit Transcribed Date: 12/28/2024 14:42 ET Narrative 12/28/2024 3:01 PM EDT CLINICAL: 74 years old, Female, indeterminate rounded morphology mass within the right axilla on screening mammogram of 12/22/2024. ??This area is adjacent to the patient's port. COMPARISON: Mammograms dating back to 05/04/2019 with most recent of 12/22/2024. ?? FINDINGS: MAMMOGRAPHY TECHNIQUE: Spot compression MLO view of the right breast was obtained digitally with 3-D mammogram (digital breast tomosynthesis). ??Computer-aided detection was utilized in evaluation of this exam (CAD). Rounded focal asymmetry adjacent to the port is a persistent finding. ??). ?? BREAST DENSITY: B - There are scattered areas of fibroglandular density. ULTRASOUND TECHNIQUE: Ultrasound evaluation of the right axilla was performed. There is a 0.6 x 0.5 x 0.7 cm lymph node with prominent fatty hilum behind the port. ?? Procedure Note Bárbara Liang MD - 12/28/2024 CLINICAL: 74 years old, Female, indeterminate rounded morphology masswithin the right axilla on screening mammogram of 12/22/2024. This areais adjacent to the patient's port. COMPARISON: Mammograms dating back to 05/04/2019 with most recent of12/22/2024. FINDINGS: MAMMOGRAPHY TECHNIQUE: Spot compression MLO view of the right breast was obtaineddigitally with 3-D mammogram (digital breast tomosynthesis).Computer-aided detection was utilized in evaluation of this exam (CAD). Rounded focal asymmetry adjacent to the port is a persistent finding. ). BREAST DENSITY: B - There are scattered areas of fibroglandular density. ULTRASOUND TECHNIQUE: Ultrasound evaluation of the right axilla was performed. There is a 0.6 x 0.5 x 0.7 cm lymph node with prominent fatty hilum behindthe port. IMPRESSION: Morphologically normal right axillary lymph node lymph node correspondingto the mammographic finding. Benign. Findings and recommendations were conveyed to the patient. BI-RADS CATEGORY: 2 - BENIGN RECOMMENDATION: Return to annual mammography. Return to annual mammography. Return toannual mammography. Return to annual mammography. Mammo Location: [facility], [address] [place] [address], [address], . -------- FINAL REPORT -------- Dictated By: Bárbara Liang Dictated Date: 12/28/2024 14:37 ET Assigned Physician: Bárbara Liang Reviewed and Electronically Signed By: Bárbara Liang Signed Date: 12/28/2024 15:01 ET Workstation ID: [id number] Transcribed By: Self Edit Transcribed Date: 12/28/2024 14:42 ET Talya Webber MD IMG BI PROCEDURE S Final Result * (ABNORMAL) MG Mammo Digital Screening w Vitaly bilat (12/22/2024 2:24 PM EDT) Anatomical Region Laterality Modality Breast Bilateral Mammography 12/23/2024 11:5 2 AM EDT Impressions 12/23/2024 11:59 AM EDT 1. ??Left: No mammographic evidence of malignancy 2. Right: Indeterminate rounded morphology mass within the right axilla 3. Scattered fibroglandular tissue BI-RADS CATEGORY: 0 - INCOMPLETE - NEED ADDITIONAL IMAGING EVALUATION RECOMMENDATION: Additional right breast imaging recommended. Right breast MLO spot compression, targeted ultrasound Mammo Location: [facility], [address] [place] [address], [id number], . -------- FINAL REPORT -------- Dictated By: Divine Farmer Dictated Date: 12/23/2024 11:52 ET Assigned Physician: Divine Farmer Reviewed and Electronically Signed By: Divine Farmer Signed Date: 12/23/2024 11:59 ET Workstation ID: [id number] Transcribed By: Self Edit Transcribed Date: 12/23/2024 11:52 ET Narrative 12/23/2024 11:59 AM EDT A BILATERAL DIGITAL 3D SCREENING MAMMOGRAPHY HISTORY: Routine screening. ??Family history of breast cancer in mother. COMPARISON: Multiple priors dating back to 05/09/2020 Technique: Bilateral full field digital mammography (3D) was performed using standard CC and MLO projections CAD ??was used to evaluate this mammogram. FINDINGS: Right: Indeterminate rounded morphology mass within the right axilla Left: No suspicious masses, groups of microcalcification or areas of architectural distortion identified. Stable typically benign parenchymal asymmetries. BREAST DENSITY: B - There are scattered areas of fibroglandular density. Procedure Note Divine Farmer MD - 12/23/2024 A BILATERAL DIGITAL 3D SCREENING MAMMOGRAPHY HISTORY: Routine screening. Family history of breast cancer in mother. COMPARISON: Multiple priors dating back to 05/09/2020 Technique: Bilateral full field digital mammography (3D) was performedusing standard CC and MLO projections CAD was used to evaluate this mammogram. FINDINGS: Right: Indeterminate rounded morphology mass within the right axilla Left: No suspicious masses, groups of microcalcification or areas ofarchitectural distortion identified. Stable typically benign parenchymalasymmetries. BREAST DENSITY: B - There are scattered areas of fibroglandular density. IMPRESSION: 1. Left: No mammographic evidence of malignancy 2. Right: Indeterminate rounded morphology mass within the right axilla 3. Scattered fibroglandular tissue BI-RADS CATEGORY: 0 - INCOMPLETE - NEED ADDITIONAL IMAGING EVALUATION RECOMMENDATION: Additional right breast imaging recommended. Right breast MLO spotcompression, targeted ultrasound Mammo Location: [facility], [address] [place] [address], [address], . -------- FINAL REPORT -------- Dictated By: Divine Farmer Dictated Date: 12/23/2024 11:52 ET Assigned Physician: Divine Farmer Reviewed and Electronically Signed By: Divine Farmer Signed Date: 12/23/2024 11:59 ET Workstation ID: [id number] Transcribed By: Self Edit Transcribed Date: 12/23/2024 11:52 ET Result [facility] Talya Webber MD IMG BI PROCEDURE S Final Result * Falls Risk Assessment (06/18/2024) Falls Risk Assessment abstracted [facility] Provider HEALTH MAINTENANCE Final Result * Hepatitis C Screening (04/17/2024) Pathologist [facility] Hepatitis C Screening abstracted Result [facility] Provider HEALTH MAINTENANCE Final Result * (ABNORMAL) Lipid panel (12/19/2023) LDL/HDL Ratio 6(A) 0 - 4 Triglycerides 159(A) 0 - 150 mg/dL Cholesterol 211(A) 0 - 200 mg/dL HDL 37(A) >=40 mg/dL LDL Cholesterol 143(A) 0 - 100 mg/dL Blood Venous blood specimen / Unknown Historical Provider LAB BLOOD ORDERABLES Kimberly l Result * DXA BONE DENSITY STUDY 1+ SITS AXIAL SKEL (04/19/2021 9:30 AM EDT) Anatomical Region Laterality Modality Bone Densitometr y 02/20/2021 8:51 AM EDT Narrative 04/20/2021 6:27 PM EDT Clinical history: menopausal/postmenopausal disorder Scans of the lumbar spine and hips were performed on a [employer] fan beam bone densitometer. ? Bone mineral density measurements and associated T and Z scores respectively are as follows: Lumbar Spine: L1-L4 BMD: 1.092 g/cm2 ? T-Score: 0.4 ? Z-Score: 2.6 Compared with the prior study dated 09/24/2018, the BMD reading has increased which is not statistically significant Left Proximal Femur: Neck BMD: 0.659 g/cm2 ? T-Score: -1.7 ?? Z-Score: 0.2 Total BMD: 0.842 g/cm2 ? T-Score: -0.8 ?Z-Score: 0.8 Compared with the prior study the mean BMD reading in the total left hip has decreased which is statistically significant Compared with standards for the young adult, lowest measured bone density places the patient in the W.H.O. osteopenic range. FRAX 10 year probability of major osteoporotic fracture: 17% FRAX 10 year probability of hip fracture: 3.6% IMPRESSION: IMPRESSION: Osteopenia. The NOF guidelines recommend that FDA approved medical therapies be considered in postmenopausal women and men age >50 years with a: i. Hip or vertebral (clinical or morphometric) fracture ii. T score of < -2.5 at the spine or hip iii. 10 year fracture probability by FRAX of >3% for hip fracture, or >20% for major osteoporotic fracture PLEASE NOTE: ?? W.H.O. classification is based on lowest measured density at the spine, femoral neck, or total hip.This classification has prognostic significance when applied to post menopausal women and older men. 1) ??The World Health Organization defines low BMD as follows: ?T-score ? Normal ? at or > -1 Osteopenia ? < -1 and ??> - 2.5 Osteoporosis ? at or < -2.5 without fractures Established osteoporosis ? < -2.5 with fractures Procedure Note Divine Lockett MD - 09/25/2022 Clinical history: menopausal/postmenopausal disorder Scans of the lumbar spine and hips were performed on a [employer] beam bone densitometer. Bone mineral density measurements and associated T and Z scoresrespectively are as follows: Lumbar Spine: L1-L4 BMD: 1.092 g/cm2 T-Score: 0.4 Z-Score: 2.6 Compared with the prior study dated 09/24/2018, the BMD reading hasincreased which is not statistically significant Left Proximal Femur: Neck BMD: 0.659 g/cm2 T-Score: -1.7 Z-Score: 0.2 Total BMD: 0.842 g/cm2 T-Score: -0.8 Z-Score: 0.8 Compared with the prior study the mean BMD reading in the total left hiphas decreased which is statistically significant Compared with standards for the young adult, lowest measured bone densityplaces the patient in the W.H.O. osteopenic range. FRAX 10 year probability of major osteoporotic fracture: 17% FRAX 10 year probability of hip fracture: 3.6% IMPRESSION: IMPRESSION: Osteopenia. The NOF guidelines recommend that FDA approved medical therapies beconsidered in postmenopausal women and men age >50 years with a: i. Hip or vertebral (clinical or morphometric) fracture ii. T score of < -2.5 at the spine or hip iii. 10 year fracture probability by FRAX of >3% for hip fracture, or >20%for major osteoporotic fracture PLEASE NOTE: W.H.O. classification is based on lowest measured density at the spine,femoral neck, or total hip.This classification has prognostic significance when applied to postmenopausal women and older men. 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 Health Care Decision (hx) 11/09/2016 AD JOHNSON DIRECTIVE Health Care Decision (hx) 11/09/2016 AD JOHNSON DIRECTIVE Health Care Decision (hx) 11/09/2016 AD JOHNSON DIRECTIVE Health Care Decision (hx) 11/09/2016 AD JOHNSON DIRECTIVE Health Care Decision (hx) 11/09/2016 AD JOHNSON DIRECTIVE Health Care Decision (hx) 11/09/2016 AD JOHNSON DIRECTIVE Health Care Decision (hx) 11/09/2016 AD JOHNSON DIRECTIVE Health Care Decision (hx) 11/09/2016 AD JOHNSON DIRECTIVE Health Care Decision (hx) 11/09/2016 AD JOHNSON DIRECTIVE Health Care Decision (hx) 11/09/2016 AD JOHNSON DIRECTIVE Health Care Decision (hx) 11/09/2016 AD JOHNSON DIRECTIVE Health Care Decision (hx) 11/09/2016 AD JOHNSON DIRECTIVE Health Care Decision (hx) 11/09/2016 AD JOHNSON DIRECTIVE Health Care Decision (hx) 11/09/2016 AD JOHNSON DIRECTIVE Health Care Decision (hx) 11/09/2016 AD JOHNSON DIRECTIVE Health Care Decision (hx) 11/09/2016 AD JOHNSON DIRECTIVE Health Care Decision (hx) 11/09/2016 AD JOHNSON DIRECTIVE Health Care Decision (hx) 11/09/2016 AD JOHNSON DIRECTIVE Health Care Decision (hx) 11/09/2016 AD JOHNSON DIRECTIVE Health Care Decision (hx) 11/09/2016 AD JOHNSON DIRECTIVE Health Care Decision (hx) 11/09/2016 AD JOHNSON DIRECTIVE Health Care Decision (hx) 11/09/2016 AD JOHNSON DIRECTIVE Health Care Decision (hx) 11/09/2016 AD JOHNSON DIRECTIVE Health Care Decision (hx) 11/09/2016 AD JOHNSON DIRECTIVE Health Care Decision (hx) 11/09/2016 AD JOHNSON DIRECTIVE Health Care Decision (hx) 11/09/2016 AD JOHNSON DIRECTIVE Health Care Decision (hx) 11/09/2016 AD JOHNSON DIRECTIVE Health Care Decision (hx) 11/09/2016 AD JOHNSON DIRECTIVE Health Care Decision (hx) 11/09/2016 AD JOHNSON DIRECTIVE Health Care Decision (hx) 11/09/2016 AD JOHNSON DIRECTIVE Care Teams Online Merchandising Specialist Relationship Specialty Start Date End Date Talya Webber MD [address] [place] [address] PCP - General Internal Medicine 05/08/22
--- OUTSIDE RECORDS SUMMARY | 2025-01-20 17:06 | XMS_ITS | Encounter Summary ---
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 Records [address] [place] [id number] Abstract, Provider Social History Tobacco Use Types [...] on filedocumented in this encounter Care Teams Manager Er Relationship Specialty Start Date End Date Torsten Hernandez MD [address] [place] [address] PCP - General Internal Medicine 10/24/11 02/19/21 Haris Jo MD [address] [place], [place] [phone] PCP - General Internal Medicine 02/20/21 07/23/21 Grace Puga MD [address] [place] [address] PCP - General Internal Medicine 07/24/21 05/07/22 Talya Webber MD [address] [place] [address] PCP - General Internal Medicine 05/08/22 Arun Wiggins MD [address] [place] [address] Specialist Cardiovascular Disease 11/16/22 4 Joyce Sanchez NP [address] [place], [place] [phone] Nurse Practitioner Cardiology 05/27/24 documented as of this encounter
--- OUTSIDE RECORDS SUMMARY | 2025-01-20 17:06 | XMS_ITS | Encounter Summary ---
Author Organization [facility] Address [address] [place] [address] Care Team Providers Care Paper Coater Name Role Phone Talya Webber MD Primary Care Pr ovid Reason for Referral * Consultation (Routine) - Authorized Specialty Diagnoses / Procedures Referred By Archana joel Referred To Contact Dermatology Diagnoses Basal cell carcinoma (BCC) of skin of face, unspecified part of face Talya Webber MD [address] [place] [address] Phone: tel: fax: Referral ID Status Reason Start Date Expiration Date Visits Requested Visits Authorized [id number] Authorized Specialty Services Required 01/18/2025 01/18/2026 1 1 Scheduling Instructions [address] [place] [address] Phone # of Specialist: [phone] Fax #: (if applicable): [phone] Reason for Visit * Reason Onset Date Comments Referral 01/15/2025 Dr Bryn Clancy Derm Encounter Details Date Type Department Care Team ([facility] st Contact Info) Description 01/15/2025 Telephone Adult Medicine [address] [phone] Talya Webber MD [address] [place] [address] Referral (Dr Clemente - [facility]) Social History Tobacco Use Types Packs/Day Years Used Date Smoking Tobacco: Never Smokeless Tobacco: Never Alcohol Use Standard Drinks/Week Comments Yes 0 (1 standard drink = 0.6 oz pur e alcohol) Comments No Sex and Gender Information Value Date Recorded Sex Assigned at Not on file Legal Sex Female 6:31 PM EST Gender Identity Not on file Sexual Orientation Not on file documented as of this encounter Progress Notes * Cassia Banerjee - 01/15/2025 11:59 AM EDT Referral Request: What insurance does the patient have today? Payor: MEDICARE / Plan: MEDICARE PART A & B / Product Type: Medicare / Referrals cannot be processed if the insurance is not accurate. If the insurance listed above in red is NO BILLING INFORMATION FOUND FOR THIS ENCOUTNER The patients correct insurance must be obtained and registered in [facility] or their referral can not be processed. Who is calling to request this referral? The patient If the caller is not the patient, what is their name? N/a Ask the patient WHO referred them to this specialty: Patient saw Dr Murray at [facility] for the problem and was told if symptoms did not resolve or worsen they would refer them to this specialty FIRST and LAST NAME of SPECIALIST PATIENT is seeing: Dr Diego What specialty is this? Dermatology DIAGNOSIS Patient is being seen for (Not a body part or a procedure):basal cell carcinoma of the skin of other parts of the face. Have you seen this SPECIALIST for this PROBLEM/DX before? If YES, when? Yes. 1 yr ago Have you checked REVIEW or the APPT DESK to see if this referral has already been done or has visits left? yes Is this visit: Follow Up Address of Specialist: [address] [place] [address] Phone # of Specialist: [phone] Fax #: (if applicable): [phone] Does patient have an appointment scheduled?: yes Date of appointment- (including a retro-request): 02/03/25 Is this appointment related to: Not MVA, worker compensation, or surgery related documented in this encounter Plan of Treatment Upcoming Encounters Date Type Department Care Team (Late st Contact Info) Description 02/05/2025 10:30 AM EDT Office Visit Adult Medicine [address] [phone] Jacqueline Oswald PA [address] [place] [address] Scheduled Referrals Name Type Priority Associated Diagnoses Orde r Schedule Ambulatory referral to Dermatology Outpatient Referral Routine Basal cell carcinoma (BCC) of skin of face, unspecified part of face Expected: 02/03/2025, Expires: 01/18/2026 documented as of this encounter Visit Diagnoses Diagnosis Basal cell carcinoma (BCC) of skin of face, unspecified part of face- Primary documented in this encounter Care Teams Paper Coater Relationship Specialty Start Date End Date Talya Webber MD [address] [facility] [place], [place] PCP - General Internal Medicine 05/08/22 documented as of this encounter
--- OUTSIDE RECORDS SUMMARY | 2025-01-20 17:06 | XMS_ITS | Encounter Summary ---
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 Report Medical Records [address] [place] [address] Socrates Rose MD Social History Tobacco Use [...] on filedocumented in this encounter Care Teams Leasing Agent Relationship Specialty Start Date End Date Torsten Hernandez MD [address] [place] [address] PCP - General Internal Medicine 10/24/11 02/19/21 Haris Jo MD [address] [place] [address] PCP - General Internal Medicine 02/20/21 07/23/21 Grace Puga MD [address] [place] [address] PCP - General Internal Medicine 07/24/21 05/07/22 Talya Webber MD [address] [place] [address] PCP - General Internal Medicine 05/08/22 Arun Wiggins MD [address] [place] [address] [place], [place] [phone] Specialist Cardiovascular Disease 11/16/22 4 Joyce Sanchez NP [address] [place] [address] Nurse Practitioner Cardiology 05/27/24 documented as of this encounter
--- OUTSIDE RECORDS SUMMARY | 2025-01-20 17:06 | XMS_ITS | Encounter Summary ---
Author Organization [facility] Address [address] [place] [address] Care Team Providers Care Special Education Tutor Name Role Phone Talya Webber MD Primary Care Provider + Arun Wiggins MD Unavailable Unavailable Joyce Sanchez NP Unavailable [phone] Reason for Visit * Reason Comments E-prescribe Rx Request Encounter Details Date Type Department Care Team Description 08/16/2022 Refill Adult Medicine [address] [phone] Jacqueline Birch PA-C [address] [place] [phone] E-prescribe Rx Request Social History Tobacco Use Types Packs/Day Years [...] encounter Miscellaneous Notes * Telephone Encounter - Diana Delarosa M.A. - 08/16/2022 8:33 AM EST Last office visit 05/08/22 Next office visit 11/08/22 with PCP Lab Results Component Value Date NA 145 06/30/2021 K 4.3 06/30/2021 CO2 33 06/30/2021 CL 107 06/30/2021 BUN 17 06/30/2021 CREAT 0.93 06/30/2021 GLU 96 06/30/2021 CA 9.6 06/30/2021 GFR 59 06/30/2021 Pt has outside labs from 03/13/22 in the system. Please review. * Telephone Encounter - Nati Biggs - 08/16/2022 7:43 AM EST Patient would like script to be: E-PRESCRIBED/FAXED TO PHARMACY WHEN WAS THE PATIENT'S LAST APPOINTMENT IN ADULT MEDICINE? 05/08/22 WHEN WAS THE LAST TIME THE PATIENT SAW THEIR PCP? never Does patient have an upcoming appointment? Yes 11/08/22 (THE MEDICATION REQUESTED IS ON THE MED LIST ABOVE) All of the medications requested were on the CURRENT MEDS list Did you check the Pharmacy information above?: YES Patient wants: 90 -day supply Is this a mail order prescription request ? NO If the refill is from a FAXED refill request what is the RX # listed on the fax? N/A Patients current insurance carrier is: [place] / [place] / Product Type: MEDICARE [id number] documented in this encounter Plan of Treatment Not on file documented as of this encounter Visit Diagnoses Not on filedocumented in this encounter Care Teams Special Education Tutor Relationship Specialty Start Date End Date Talya Webber MD [address] [place] [address] PCP - General Internal Medicine 05/08/22 Arun Wiggins MD [address] [place] [address] Specialist Cardiovascular Disease 11/16/22 4 Joyce Sanchez NP [address] [place] [address] Nurse Practitioner Cardiology 05/27/24 documented as of this encounter
--- OUTSIDE RECORDS SUMMARY | 2025-01-20 17:06 | XMS_ITS | Encounter Summary ---
Author Organization [facility] Address [address] [place] [address] Care Team Providers Care Lining Layer Name Role Phone Torsten Hernandez MD Primary Care Provider + [phone] Haris Jo MD Primary Care Provider Unavailab Grace Rahman MD Primary Care Provider [phone] Talya Webber MD Primary Care Provider + Arun Wiggins MD Unavailable Unavailable Joyce Sanchez NP Unavailable [phone] Encounter Details Date Type Department Care Team Description 03/03/2015 Business Doc Medical Records [address] [place] [address] Abstract, Provider Social History Tobacco Use Types [...] on filedocumented in this encounter Care Teams Lining Layer Relationship Specialty Start Date End Date Torsten Hernandez MD [address] [place] [address] PCP - General Internal Medicine 10/24/11 02/19/21 Haris Jo MD [address] [place] [address] PCP - General Internal Medicine 02/20/21 07/23/21 Grace Puga MD [address] [place] [address] PCP - General Internal Medicine 07/24/21 05/07/22 Talya Webber MD [address] [place] [address] PCP - General Internal Medicine 05/08/22 Arun Wiggins MD [address] [place] [address] Specialist Cardiovascular Disease 11/16/22 4 Joyce Sanchez NP [address] [place] [address] Nurse Practitioner Cardiology 05/27/24 documented as of this encounter
--- OUTSIDE RECORDS SUMMARY | 2025-01-20 17:06 | XMS_ITS | Clinical Summary ---
Author Organization [facility] Address [address] [place] [address] Care Team Providers Care Associate Material Handler Name Role Phone Talya Webber MD Primary Care Provider + Joyce Sanchez NP Unavailable [phone] Allergies No known active allergies Medications Medication Sig Dispensed Refills Start Date End Date Status CENTRUM SILVER OR Take 1 Tablet by mouth daily. 0 Active betamethasone valerate (VALISONE) 0.1 % ointment Apply to affected areas BID x 10 days 30 g 0 05/08/2022 Active Rasagiline Mesylate 1 MG Tab Take 1 Tablet by mouth daily. 0 09/06/2022 Active ALBUTEROL SULFATE (ProAir HFA) 108 (90 Base) MCG/ACT Aero SolnIndications:Essen tial hypertension, benign Inhale 2 Puffs into the lungs every 4 hours as needed for Wheezing or Shortness of Breath (EMERGENCY USE ONLY). 8.5 g 0 11/08/2022 Active clindamycin (CLINDAGEL) 1 % gel Apply topically 2 times daily. 0 Active benzoyl peroxide 5 % gel Apply topically daily as needed. 0 Active Xarelto 20 MG Tab TAKE 1 TABLET BY MOUTH EVERY DAY 90 Tablet 2 02/24/2024 Active carbidopa-levodopa (SINEMET) 25-100 MG per tablet Take 0.5 Tablets by mouth 2 times daily. 0 Active allopurinol (ZYLOPRIM) 300 MG tablet Take 1 Tablet by mouth daily. 0 Active famotidine (PEPCID) 20 MG tablet Take 1 Tablet by mouth 2 times daily. 0 Active Gemcitabine HCl (GEMZAR IV) Inject into the vein. As directed 0 Active DEXAMETHASONE OR Take 12 mg by mouth. As directed 0 Active riTUXimab (RITUXAN IV) Inject into the vein. As directed 0 Active Palonosetron HCl (ALOXI IV) Inject into the vein. As directed 0 Active Pegfilgrastim (NEULASTA SC) Inject into the skin. Given after chemo treatment 0 Active levothyroxine (SYNTHROID, LEVOTHROID) 25 MCG tabletIndications:Sub clinical hypothyroidism Take 1 Tablet by mouth daily. 90 Tablet 1 06/18/2024 Active amlodipine (NORVASC) 10 MG tabletIndications:Ess ential hypertension, benign Take 1 Tablet by mouth daily. 90 Tablet 1 06/18/2024 Active Fluticasone Furoate (Arnuity Ellipta) 100 MCG/ACT AEROSOL POWDER,BREATH ACTIVATEDIndications: Mild persistent asthma without complication Inhale 1 Puff into the lungs daily. 1 Each 1 06/18/2024 Active carbamide peroxide (Debrox) 6.5 % otic solutionIndications:B ilateral impacted cerumen Place 5 Drops into both ears 2 times daily for 10 days. Tilt head so ear to be treated points towards the ceiling. Hold medication in ear using part of a cotton ball. 15 mL 0 06/18/2024 Active Active Problems Problem Noted Date Systolic murmur 12/05/2023 Last Assessment & Plan: Soft systolic murmur appreciated during exam today. We will update surveillance echocardiogram to further evaluate for any valvular abnormalities. Dyspnea 11/29/2022 Last Assessment & Plan: Denies perception of increased dyspnea. Parkinson's disease 11/08/2022 Atrial fibrillation 11/08/2022 Last Assessment & Plan: Patient today presenting in normal sinus rhythm. She continues to be anticoagulated with Xarelto with a COA0EI1-DSKs score of 4. Reports she is tolerating this well with no bleeding issues. She is aware that she will need to seek emergent medical attention if she experiences any head trauma. Subclinical hypothyroidism 11/08/2022 Thyroid nodule 03/15/2021 Overview: CT scan done at [facility] on 03/07/21 showed nodule in the right lobe of thyroid. Radiology mentions may represent radiology Endometrial thickening on ultrasound 06/2021 Overview: CT scan done 03/07/2021 at [facility], referred to DIRECTOR MEDICAL SCIENCE at [place]. CKD (chronic kidney disease) stage 3, GF R 30-59 ml/min 08/22/2020 Hyperlipidemia 08/22/2020 Last Assessment & Plan: Patient's last LDL cholesterol reading on 12/19/2023 was 143. Patient is not interested in starting any new medications right now while she is going through chemotherapy understandably. She will work on dietary changes and repeat lipid panel within 6 months. If LDL continues to be high, will consider initiating statin at this time. 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 Rosacea 08/31/2015 Asthma 03/18/2013 Overview: Moderate to severe obstructive defect on pulmonary function studies 2012, w reversibility Overweight (BMI 25.0-29.9) 12/22/2012 HYPERTENSION 11/25/2006 Last Assessment & Plan: Patient's blood pressure currently under good control today at 136/68. She will continue taking the amlodipine 10 mg daily. She reports she is tolerating this well. osteopenia 08/17/2005 Overview: IMO update Resolved Problems Problem Noted Date Resolved Date Hypercalcemia 07/04/2017 11/08/2022 Overview: Last Assessment & Plan: Patient with hypercalcemia prior to admission to . and on day of admission. She received 2L of IVF in clinic with improvement to her cCA. Ca remains within normal limits. Hypertension 07/03/2017 05/08/2022 Overview: Last Assessment & Plan: SECONDARY Home regimen consists of amlodipine 10mg daily, continue on admission. Hypertriglyceridemia 04/10/2011 08/22/2020 Immunizations Name Administration Dates Next Due COVID-19 (Moderna) 08/04/2021,12/30/2020, 021 COVID-19 (Pfizer) 08/08/2023 Covid-19 Bivalent (Moderna) 07/05/2022 Influenza Flu (PT Reported) 06/16/2022, 9 Influenza vaccine high dose age 65 and over 07/02/2024,06/17/2023,07/18/2022,06/19,06/07/2020,07/30/2018,07/06/2017 Pneumoccoccal(Adult) Polysac charide PPSV23 04/23/2012 Pneumococcal Conjugate PCV-13 03/01/2015 Shingrix (Recombinant zoster vaccine) ,07/07/2020,12/01/2019,11/07 TD (STATE SUPPLIED FOR ADULT S AND CHILDREN) 05/08/2022 TETANUS/DIPTHERIA (ADULT) 04/03/2004 Tdap 04/23/2012 Zostavax 05/27/2012 Family History Medical History Relation Name Comments Hypertension Father CA Breast Mother Cancer of the Breast Mother Hypertension Sister 2 Relation Name Status Comments Father (Age 83) CAD Mother (Age 60) [facility] also had 2 aunts with breast cancer Sister 1 Alive hypertension Sister 2 Son 1 Alive Son 2 Alive Social [...] file Not on file Not on file Last Filed Vital Signs Vital Sign Reading Time Taken Comments Blood Pressure 124/50 07/02/2024 11:11 AM EDT Pulse 76 07/02/2024 11:11 AM EDT Temperature 36.1 ??C (97 ??F) 07/02/2024 11:11 AM EDT Respiratory Rate 14 07/02/2024 11:11 AM EDT Oxygen Saturation 99% 05/27/2024 1:07 PM EDT Inhaled Oxygen Concentration - - Weight 67.6 kg (149 lb) 07/02/2024 11:11 AM EDT Height 154.9 cm (5' 1 ) 07/02/2024 11:11 AM EDT Body Mass Index 28.15 07/02/2024 11:11 AM EDT Plan of Treatment Health Maintenance Due Date Last Done Comments BONE DENSITY SCREENING 04/19/2023 , 10/01/2018, 09/14/2013, Additional history exists Covid-19 Vaccine ( season) 2024 08/08/2023, 07/05/2022, 08/04/2021, Additional history exists DEPRESSION SCREEN 06/17/2024 06/17/2023, , 11/02/2019, Additional history exists BMI CHECK/ADVISE 10/07/2024 06/18/2024 (Com pleted), 10/03/2022, 05/08/2022, Additional history exists MAMMOGRAM 12/17/2024 12/18/2023, 05/07, 05/12/2020, Additional history exists FALL RISK ASSESSMENT 06/18/2025 06/18/2024, 06/17/2023, 05/08/2022, Additional history exists CHOLESTEROL SCREENING 12/18/2028 12/19/2023 , 06/21/2023, 11/08/2022, Additional history exists DTAP/TDAP/TD (3 - Td or Tdap) 05/08/2032 05/08/2022, 04/23/2012 HEPATITIS C SCREENING Completed 02/17/2014 PNEUMOCOCCAL VACCINE Addressed 08/26/2018 (Completed), 03/01/2015, 04/23/2012 Overridden with the intention of not completing the topic SHINGLES VACCINE Completed 08/01/2020, 10/2019, 07/07/2020 (External Completion), Additional history exists INFLUENZA Completed 07/02/2024, 06/07, 07/18/2022, Additional history exists Advance Directives For more information, please contact: [phone] Documents on File Type Date Recorded Patient Ladies Suit Operator Expl юлия Health Care Proxy 06/28/2023 10:57 AM HEAL TH CARE PROXY Latest Code Status on File Code Status Date Activated Date Inactivated Comments Full Code 06/28/2023 8:05 AM Care Teams Associate Material Handler Relationship Specialty Start Date End Date Talya Webber MD [address] [place] [address] PCP - General Internal Medicine 05/08/22 Joyce Sanchez NP [address] [place] [address] Nurse Practitioner Cardiology 05/27/24
--- OUTSIDE RECORDS SUMMARY | 2025-01-20 17:06 | XMS_ITS | Encounter Summary ---
Author Organization [facility] Address [address] [place] [address] Care Team Providers Care Bale Piler Name Role Phone Torsten Hernandez MD Primary Care Provider + [phone] Haris Jo MD Primary Care Provider Unavailab Grace Rahman MD Primary Care Provider [phone] Talya Webber MD Primary Care Provider + Arun Wiggins MD Unavailable Unavailable Joyce Sanchez NP Unavailable [phone] Encounter Details Date Type Department Care Team Description 02/12/2017 Hospital Medical Records [address] [place] [address] Socrates Rose MD Social History Tobacco Use [...] on filedocumented in this encounter Care Teams Bale Piler Relationship Specialty Start Date End Date Torsten Hernandez MD [address] [place] [address] PCP - General Internal Medicine 10/24/11 02/19/21 Haris Jo MD [address] [place] [address] PCP - General Internal Medicine 02/20/21 07/23/21 Grace Puga MD [address] [place] [address] PCP - General Internal Medicine 07/24/21 05/07/22 Talya Webber MD [address] [place] [address] PCP - General Internal Medicine 05/08/22 Arun Wiggins MD [address] [place], [place] [phone] Specialist Cardiovascular Disease 11/16/22 4 Joyce Sanchez NP [address] [place] [address] Nurse Practitioner Cardiology 05/27/24 documented as of this encounter
--- OUTSIDE RECORDS SUMMARY | 2025-01-20 17:06 | XMS_ITS | Encounter Summary ---
Author Organization [facility] Address [address] [place] [address] Care Team Providers Care Patient Registration Clerk Name Role Phone Haris Jo MD Primary Care Provider Unavailab Grace Rahman MD Primary Care Provider Talya Webber MD Primary Care Provider + Arun Wiggins MD Unavailable Unavailable Joyce Sanchez NP Unavailable [phone] Encounter Details Date Type Department Care Team Description 07/20/2021 Orders Only Medical Records [address] [place] [address] Porsha Lindsey, DO [address] [place], [place] [id number] Social History Tobacco Use Types Packs/Day Years [...] have Coronavirus / COVID-19? No / Unsure 07/06/2021 9:56 AM EDT documented as of this encounter Plan of Treatment Not on file documented as of this encounter Procedures Procedure Name Priority Date/Time Associated Diagnosis Comments OUTSIDE PATHOLOGY Routine 07/17/2021 documented in this encounter Results * OUTSIDE PATHOLOGY (07/17/2021) Porsha [facility] documented in this encounter Visit Diagnoses Not on filedocumented in this encounter Care Teams Patient Registration Clerk Relationship Specialty Start Date End Date Haris Jo MD PCP - General Internal Medicine 02/20/21 07/23/21 Grace Puga MD [address] [place] [address] PCP - General Internal Medicine 07/24/21 05/07/22 Talya Webber MD [address] [place] [address] PCP - General Internal Medicine 05/08/22 Arun Wiggins MD [address] [place] [address] Specialist Cardiovascular Disease 11/16/22 4 Joyce Sanchez NP [address] [place] [address] Nurse Practitioner Cardiology 05/27/24 documented as of this encounter
--- OUTSIDE RECORDS SUMMARY | 2025-01-20 17:06 | XMS_ITS | Encounter Summary ---
Author Organization [facility] Address [address] [place] [address] Care Team Providers Care Assistant Teacher Primary Name Role Phone Torsten Hernandez MD Primary Care Provider + [phone] Haris Jo MD Primary Care Provider Unavailab Grace Rahman MD Primary Care Provider [phone] Talya Webber MD Primary Care Provider + Arun Wiggins MD Unavailable Unavailable Joyce Sanchez NP Unavailable [phone] Encounter Details Date Type Department Care Team Description 07/03/2017 Mattress Maker Report Medical Records [address] [place] [address] Abstract, Provider Social History Tobacco Use Types [...] on filedocumented in this encounter Care Teams Assistant Teacher Primary Relationship Specialty Start Date End Date Torsten Hernandez MD [address] [place] [address] PCP - General Internal Medicine 10/24/11 02/19/21 Haris Jo MD [address] [place], [place] [phone] PCP - General Internal Medicine 02/20/21 07/23/21 Grace Puga MD [address] [place] [address] PCP - General Internal Medicine 07/24/21 05/07/22 Talya Webber MD [address] [place] [address] PCP - General Internal Medicine 05/08/22 Arun Wiggins MD [address] [place] [address] Specialist Cardiovascular Disease 11/16/22 4 Joyce Sanchez NP [address] [place], [place] [phone] Nurse Practitioner Cardiology 05/27/24 documented as of this encounter
--- OUTSIDE RECORDS SUMMARY | 2025-01-20 17:06 | XMS_ITS | Encounter Summary ---
Author Organization [facility] Address [address] [place] [address] Care Team Providers Care Sewer Pipe Offbearer Name Role Phone Torsten Hernandez MD Primary Care Provider + [phone] Haris Jo MD Primary Care Provider Unavailab Grace Rahman MD Primary Care Provider [phone] Talya Webber MD Primary Care Provider + Arun Wiggins MD Unavailable Unavailable Joyce Sanchez NP Unavailable [phone] Encounter Details Date Type Department Care Team Description 06/17/2017 Fish Skinning Machine Feeder Report Medical Records [address] [place] [address] Socrates Rose MD Social History Tobacco Use [...] on filedocumented in this encounter Care Teams Sewer Pipe Offbearer Relationship Specialty Start Date End Date Torsten Hernandez MD [address] [place] [address] PCP - General Internal Medicine 10/24/11 02/19/21 Haris Jo MD [address] [place] [address] PCP - General Internal Medicine 02/20/21 07/23/21 Grace Puga MD [address] [place] [address] PCP - General Internal Medicine 07/24/21 05/07/22 Talya Webber MD [address] [place] [address] PCP - General Internal Medicine 05/08/22 Arun Wiggins MD [address] [place], [place] [phone] Specialist Cardiovascular Disease 11/16/22 4 Joyce Sanchez NP [address] [place] [address] Nurse Practitioner Cardiology 05/27/24 documented as of this encounter
--- OUTSIDE RECORDS SUMMARY | 2025-01-20 17:06 | XMS_ITS | Encounter Summary ---
Author Organization [facility] Address [address] [place] [address] Care Team Providers Care Manufacturing Test Technician Name Role Phone Torsten Hernandez MD Primary Care Provider + [phone] Haris Jo MD Primary Care Provider Unavailab Grace Rahman MD Primary Care Provider [phone] Talya Webber MD Primary Care Provider + Arun Wiggins MD Unavailable Unavailable Joyce Sanchez NP Unavailable [phone] Reason for Visit * Reason Onset Date Comments TEST RESULTS 11/06/2011 Encounter Details Date Type Department Care Team Description 11/06/2011 Telephone Adult [address] [address] Nita Dover PA-C TEST RESULTS Social History Tobacco Use Types [...] encounter Miscellaneous Notes * Telephone Encounter - Jennifer Chaudhari L.P.N. - 11/06/2011 11:21 AM EST Please review and advise. * Telephone Encounter - Nati Leon - 11/06/2011 11:17 AM EST Inform patient: ANY URGENT OR ABNORMAL RESULTS WIILL RESULT IN A CALL BACK TO THE PATIENT RADHA. Type of test: :chest x-ray & labs Date test was performed: 10-31-2012 Where was the test performed: [facility] Who ordered this test?: val dover Is the doctor here today?: YES Can the message wait until the doctor returns?: NO IF PATIENT'S PCP IS NOT IN INSTRUCT PATIENT THAT THEY WILL RECEIVE A CALL BACK WHEN THE PCP IS IN THE OFFICE NEXT. documented in this encounter Plan of Treatment Not on file documented as of this encounter Visit Diagnoses Not on filedocumented in this encounter Care Teams Manufacturing Test Technician Relationship Specialty Start Date End Date Torsten Hernandez MD [address] [place] [address] PCP - General Internal Medicine 10/24/11 02/19/21 Haris Jo MD [address] [place], [place] [phone] PCP - General Internal Medicine 02/20/21 07/23/21 Grace Puga MD [address] [place] [address] PCP - General Internal Medicine 07/24/21 05/07/22 Talya Webber MD [address] [place] [address] PCP - General Internal Medicine 05/08/22 Arun Wiggins MD [address] [place], [place] [phone] Specialist Cardiovascular Disease 11/16/22 4 Joyce Sanchez NP [address] [place] [address] Nurse Practitioner Cardiology 05/27/24 documented as of this encounter
--- OUTSIDE RECORDS SUMMARY | 2025-01-20 17:06 | XMS_ITS | Encounter Summary ---
Author Organization [facility] Address [address] [place] [address] Care Team Providers Care Med Surg Nurse Name Role Phone Grace Puga MD Primary Care Provider [phone] Talya Webber MD Primary Care Provider + Arun Wiggins MD Unavailable Unavailable Joyce Sanchez NP Unavailable [phone] Reason for Visit * Reason Comments E-prescribe Rx Request Encounter Details Date Type Department Care Team Description 01/31/2022 Refill Adult Medicine [address] [phone] Fela Contreras PA-C [address] [place] [address] E-prescribe Rx Request Social History Tobacco Use [...] encounter Miscellaneous Notes * Telephone Encounter - Nicole Cui M.A. - 02/07/2022 10:16 AM EDT Please review and schedule sooner if an appoinntment is available per prescriber below, thank you! Refill approved and e-prescribed to patient's pharmacy. * Telephone Encounter - Albania Werner PA-C - 02/06/2022 3:59 PM EDT Is May the soonest appt we can offer to her? Ideally, patient would need to be seen by care teamsooner than May. Thanks! * Telephone Encounter - Nicole Cui M.A. - 02/05/2022 4:52 PM EDT LUIS EDUARDO 07/06/21- Pre-OP with previous PCP NOV 05/08/22 Please review if refill is appropriate, thank you. OK to wait- pharmacy refill request * Telephone Encounter - Gopi Watkins - 02/05/2022 3:04 PM EDT Scheduled patient a follow up 07/21/22 with manny moore * Telephone Encounter - Beata Beaver - 02/02/2022 12:47 PM EDT Called and left vm to contact office to schedule f/u appt for med review. BSR please route encounter once pt schedules appt. * Telephone Encounter - Beata Beaver - 02/02/2022 12:45 PM EDT Patient would like script to be: E-PRESCRIBED/FAXED TO PHARMACY WHEN WAS THE PATIENT'S LAST APPOINTMENT IN ADULT MEDICINE? 07/06/2021 WHEN WAS THE LAST TIME THE PATIENT SAW THEIR PCP? Has not seen pcp yet Does patient have an upcoming appointment? No-unable to reach left voicemaill to call for appointment due to refill request. Appt due (THE MEDICATION REQUESTED IS ON THE MED LIST ABOVE) All of the medications requested were on the CURRENT MEDS list Did you check the Pharmacy information above?: YES Patient wants: 30 -day supply Is this a mail order prescription request ? NO If the refill is from a FAXED refill request what is the RX # listed on the fax? N/A Patients current insurance carrier is: Payor: MEDICARE-[employer] / Plan: MEDICARE-[employer] / Product Type: MEDICARE [id number] documented in this encounter Plan of Treatment Not on file documented as of this encounter Visit Diagnoses Diagnosis HYPERTENSION Essential hypertension, benign Hypertriglyceridemia Pure hyperglyceridemia Rosacea documented in this encounter Care Teams Med Surg Nurse Relationship Specialty Start Date End Date Grace Puga MD [address] [place] [address] PCP - General Internal Medicine 07/24/21 05/07/22 Talya Webber MD [address] [place] [address] PCP - General Internal Medicine 05/08/22 Arun Wiggins MD [address] [place] [address] Specialist Cardiovascular Disease 11/16/22 4 Joyce Sanchez NP [address] [place] [address] Nurse Practitioner Cardiology 05/27/24 documented as of this encounter
--- OUTSIDE RECORDS SUMMARY | 2025-01-20 17:06 | XMS_ITS | Encounter Summary ---
Author Organization [facility] Address [address] [place] [address] Care Team Providers Care Tumblers Supervisor Name Role Phone Torsten Hernandez MD Primary Care Provider + [phone] Haris Jo MD Primary Care Provider Unavailab Grace Rahman MD Primary Care Provider [phone] Talya Webber MD Primary Care Provider + Arun Wiggins MD Unavailable Unavailable Joyce Sanchez NP Unavailable [phone] Encounter Details Date Type Department Care Team Description 01/03/2018 Turbinated Bone Grinder Report Medical Records [address] [place] [address] [facility] [place] Social History Tobacco Use Types Packs/Day Years [...] on filedocumented in this encounter Care Teams Tumblers Supervisor Relationship Specialty Start Date End Date Torsten Hernandez MD [address] [place] [address] PCP - General Internal Medicine 10/24/11 02/19/21 Haris Jo MD [address] [place] [address] PCP - General Internal Medicine 02/20/21 07/23/21 Grace Puga MD [address] [place] [address] PCP - General Internal Medicine 07/24/21 05/07/22 Talya Webber MD [address] [place] [address] PCP - General Internal Medicine 05/08/22 Arun Wiggins MD [address] [place] [address] Specialist Cardiovascular Disease 11/16/22 4 Joyce Sanchez NP [address] [place], [place] [phone] Nurse Practitioner Cardiology 05/27/24 documented as of this encounter
--- OUTSIDE RECORDS SUMMARY | 2025-01-20 17:06 | XMS_ITS | Encounter Summary ---
Author Organization [facility] Address [address] [place] [address] Care Team Providers Care Senior Government Program Analyst Name Role Phone Torsten Hernandez MD Primary Care Provider + [phone] Haris Jo MD Primary Care Provider Unavailab Grace Rahman MD Primary Care Provider [phone] Talya Webber MD Primary Care Provider + Arun Wiggins MD Unavailable Unavailable Joyce Sanchez NP Unavailable [phone] Encounter Details Date Type Department Care Team Description 09/10/2017 Test Boring Crew Chief Report Medical Records [address] [place] [address] Abstract, Provider Social History Tobacco Use Types [...] on filedocumented in this encounter Care Teams Senior Government Program Analyst Relationship Specialty Start Date End Date Torsten Hernandez MD [address] [place] [address] PCP - General Internal Medicine 10/24/11 02/19/21 Haris Jo MD [address] [place], [place] [address] PCP - General Internal Medicine 02/20/21 07/23/21 Grace Puga MD [address] [place] [address] PCP - General Internal Medicine 07/24/21 05/07/22 Talya Webber MD [address] [place] [address] PCP - General Internal Medicine 05/08/22 Arun Wiggins MD [address] [place] [address] Specialist Cardiovascular Disease 11/16/22 4 Joyce Sanchez NP [address] [place], [place] [phone] Nurse Practitioner Cardiology 05/27/24 documented as of this encounter
--- OUTSIDE RECORDS SUMMARY | 2025-01-20 17:06 | XMS_ITS | Encounter Summary ---
Author Organization [facility]ly [facility] Address [address] [place] [address] Care Team Providers Care Legal Transcriber Name Role Phone Haris Jo MD Primary Care Provider Unavailab Grace Rahman MD Primary Care Provider [phone] Talya Webber MD Primary Care Provider + Arun Wiggins MD Unavailable Unavailable Joyce Sanchez NP Unavailable [phone] Encounter Details Date Type Department Care Team Description 03/07/2021 Hitting Coach Report Medical Records [address] [place] [address] General Social History Tobacco Use Types Packs/Day Years [...] have Coronavirus / COVID-19? No / Unsure 02/20/2021 8:17 AM EDT documented as of this encounter Plan of Treatment Not on file documented as of this encounter Procedures Procedure Name Priority Date/Time Associated Diagnosis Comments OUTSIDE CT Routine 03/07/2021 OUTSIDE LAB Routine 03/07/2021 OUTSIDE LAB Routine 03/07/2021 documented in this encounter Results * OUTSIDE CT (03/07/2021) Provider Default RADIOLOGY * OUTSIDE LAB (03/07/2021) Provider Default LAB * OUTSIDE LAB (03/07/2021) Provider Default LAB documented in this encounter Visit Diagnoses Not on filedocumented in this encounter Care Teams Legal Transcriber Relationship Specialty Start Date End Date Haris Jo MD PCP - General Internal Medicine 02/20/21 07/23/21 Grace Puga MD [address] [place] [address] PCP - General Internal Medicine 07/24/21 05/07/22 Talya Webber MD [address] [place] [address] PCP - General Internal Medicine 05/08/22 Arun Wiggins MD [address] [place] [address] 61316 Specialist Cardiovascular Disease 11/16/22 4 Joyce Sanchez NP [address] [place] [address] Nurse Practitioner Cardiology 05/27/24 documented as of this encounter
--- OUTSIDE RECORDS SUMMARY | 2025-01-20 17:06 | XMS_ITS | Encounter Summary ---
Author Organization [facility] Address [address] [place] [address] Care Team Providers Care Brim Pouncer Name Role Phone Talya Webber MD Primary Care Provider + Arun Wiggins MD Unavailable Unavailable Joyce Sanchez NP Unavailable [phone] Encounter Details Date Type Department Care Team Description 09/02/2023 Dog Or Animal Sitter Report Medical Records [address] [place] [address] Concha Beltran Social History Tobacco Use Types Packs/Day Years [...] on filedocumented in this encounter Care Teams Brim Pouncer Relationship Specialty Start Date End Date Talya Webber MD [address] [place] [address] [phone] PCP - General Internal Medicine 05/08/22 Arun Wiggins MD [address] [place] [address] 30650 Specialist Cardiovascular Disease 11/16/22 4 Joyce Sanchez NP [address] [place] [address] [phone] Nurse Practitioner Cardiology 05/27/24 documented as of this encounter
--- OUTSIDE RECORDS SUMMARY | 2025-01-20 17:06 | XMS_ITS | Encounter Summary ---
Author Organization [facility] Address [address] [place] [address] Care Team Providers Care Special Class Welder Name Role Phone Haris Jo MD Primary Care Provider Unavailab Grace Rahman MD Primary Care Provider [phone] Talya Webber MD Primary Care Provider + Arun Wiggins MD Unavailable Unavailable Joyce Sanchez NP Unavailable [phone] Reason for Visit * Reason Onset Date Comments Provider Call Back 02/27/2021 Encounter Details Date Type Department Care Team Description 02/27/[address] [address] Haris Jo MD Provider Call Back Social History Tobacco Use Types Packs/Day Years [...] AM EDT documented as of this encounter Miscellaneous Notes * Telephone Encounter - Ashlee Zuniga - 02/27/2021 3:34 PM EDT The number provided is for the [facility] at [facility]. Dr. Juárez is not accepting new patients and the patient was not diagnosed with MS. Unable to complete request. Patient will be referred to a provider that is taking on new patients and sees for dx. * Telephone Encounter - Gopi Mtz - 02/27/2021 12:59 PM EDT The patient is calling today because she spoke to her insurance company who referred he to a neurologist for left arm and hand tremors that she has had for the past 5 months. She was told by Dr. Antonio Keen's office that they need health records to be faxed from our office to them before theycan book the patient an appointment. The patient wasn't able to get their fax number, but she did get their phone number, which is [phone]. documented in this encounter Plan of Treatment Not on file documented as of this encounter Visit Diagnoses Not on filedocumented in this encounter Care Teams Special Class Welder Relationship Specialty Start Date End Date Haris Jo MD PCP - General Internal Medicine 02/20/21 07/23/21 Grace Puga MD [address] [place] [address] PCP - General Internal Medicine 07/24/21 05/07/22 Talya Webber MD [address] [place] [address] PCP - General Internal Medicine 05/08/22 Arun Wiggins MD [address] [place] [address] Specialist Cardiovascular Disease 11/16/22 4 Joyce Sanchez NP [address] [place] [address] Nurse Practitioner Cardiology 05/27/24 documented as of this encounter
--- OUTSIDE RECORDS SUMMARY | 2025-01-20 17:06 | XMS_ITS | Encounter Summary ---
Author Organization [facility] Address [address] [place] [address] Care Team Providers Care Retail General Manager Name Role Phone Torsten Hernandez MD Primary Care Provider + [phone] Haris Jo MD Primary Care Provider Unavailab Grace Rahman MD Primary Care Provider [phone] Talya Webber MD Primary Care Provider + Arun Wiggins MD Unavailable Unavailable Joyce Sancehz NP Unavailable [phone] Encounter Details Date Type Department Care Team Description 04/14/2018 Screedman Report Medical Records [address] [place] [address] [facility] [place] Social History Tobacco Use Types Packs/Day Years [...] on filedocumented in this encounter Care Teams Retail General Manager Relationship Specialty Start Date End Date Torsten Hernandez MD [address] [place] [address] PCP - General Internal Medicine 10/24/11 02/19/21 Haris Jo MD [address] [place] [address] PCP - General Internal Medicine 02/20/21 07/23/21 Grace Puga MD [address] [place] [address] PCP - General Internal Medicine 07/24/21 05/07/22 Talya Webber MD [address] [place] [address] PCP - General Internal Medicine 05/08/22 Arun Wiggins MD [address] [place] [address] Specialist Cardiovascular Disease 11/16/22 4 Joyce Sanchez NP [address] [place], [place] [phone] Nurse Practitioner Cardiology 05/27/24 documented as of this encounter
--- OUTSIDE RECORDS SUMMARY | 2025-01-20 17:06 | XMS_ITS | Encounter Summary ---
Author Organization [facility] Address [address] [place] [address] Care Team Providers Care Senior Research Fellow Name Role Phone Torsten Hernandez MD Primary Care Provider [phone] Haris Jo MD Primary Care Provider Unavailab Grace Rahman MD Primary Care Provider [phone] Talya Webber MD Primary Care Provider + Arun Wiggins MD Unavailable Unavailable Joyce Sanchez NP Unavailable Reason for Visit * Reason Onset Date Comments Orders Call 04/18/2012 Encounter Details Date Type Department Care Team Description 04/18/2012 Telephone Adult [address] [phone] Torsten Hernandez MD [address] [place] [address] [phone] Orders Call Social History Tobacco Use Types Packs/Day Years [...] encounter Miscellaneous Notes * Telephone Encounter - Nita Dover PA-C - 04/18/2012 4:37 PM EDT OK, she can have all three. * Telephone Encounter - Jennifer FraustoP.N. - 04/18/2012 2:26 PM EDT All 3 pneumovax, tdap and shingles are covered by insurance Saw you for pe * Telephone Encounter - Varsha Reid - 04/18/2012 12:05 PM EDT Patient returning your call. * Telephone Encounter - Jennifer Chaudhari L.P.N. - 04/18/2012 11:44 AM EDT Has a [facility] Pneumovax, shingles, tdap queastions answered Smoke with pt, she will check with her insurance and call me back * Telephone Encounter - Francy Ceja - 04/18/2012 11:12 AM EDT Patient is requesting a list of their previous immunizations NO Does the patient have an immunization form to be completed? NO Is the patient requesting immunizations to be administered? YES If yes, which immunizations are needed? The patient would like to have all her immunization updated. She would also like the immunization for whooping cough. She was also advised to call insurance co. Regarding shingles vaccince. Is the patient traveling to a foreign country: NO If traveling: Which country: Date patient is leaving: documented in this encounter Plan of Treatment Not on file documented as of this encounter Visit Diagnoses Diagnosis Need for prophylactic vaccination against Streptococcus pneumoniae (pneumococcus) Need for prophylactic vaccination against streptococcus pneumoniae (pneumococcus) Need for prophylactic vaccination and inoculation against other specified disease Need for prophylactic vaccination and inoculation against other viral diseases(V04.89) Need for prophylactic vaccination and inoculation against other viral diseases documented in this encounter Care Teams Senior Research Fellow Relationship Specialty Start Date End Date Torsten Hernandez MD [address] [place] [address] PCP - General Internal Medicine 10/24/11 02/19/21 Haris Jo MD [address] [place] [address] PCP - General Internal Medicine 02/20/21 07/23/21 Grace Puga MD [address] [place] [address] PCP - General Internal Medicine 07/24/21 05/07/22 Talya Webber MD [address] [place] [address] PCP - General Internal Medicine 05/08/22 Arun Wiggins MD [address] [place] [address]32 Specialist Cardiovascular Disease 11/16/22 4 Joyce Sanchez NP [address] [place] [address] Nurse Practitioner Cardiology 05/27/24 documented as of this encounter
--- OUTSIDE RECORDS SUMMARY | 2025-01-20 17:06 | XMS_ITS | Encounter Summary ---
Author Organization [facility] Address [address] [place] [address] Care Team Providers Care Secretary To The Vice President Name Role Phone Torsten Hernandez MD Primary Care Provider + [phone] Haris Jo MD Primary Care Provider Unavailab Grace Rahman MD Primary Care Provider [phone] Talya Webber MD Primary Care Provider + Arun Wiggins MD Unavailable Unavailable Joyce Sanchez NP Unavailable [phone] Encounter Details Date Type Department Care Team Description 12/20/2016 Neck Band Operator Report Medical Records [address] [place] [address] Socrates Rose MD Social History Tobacco Use [...] on filedocumented in this encounter Care Teams Secretary To The Vice President Relationship Specialty Start Date End Date Torsten Hernandez MD [address] [place] [address] PCP - General Internal Medicine 10/24/11 02/19/21 Haris Jo MD [address] [place] [address] PCP - General Internal Medicine 02/20/21 07/23/21 Grace Puga MD [address] [place] [address] PCP - General Internal Medicine 07/24/21 05/07/22 Talya Webber MD [address] [place] [address] PCP - General Internal Medicine 05/08/22 Arun Wiggins MD [address] [place], [place] [phone] Specialist Cardiovascular Disease 11/16/22 4 Joyce Sanchez NP [address] [place] [address] Nurse Practitioner Cardiology 05/27/24 documented as of this encounter
--- OUTSIDE RECORDS SUMMARY | 2025-01-20 17:06 | XMS_ITS | Encounter Summary ---
Author Organization [facility] Address [address] [place] [address] Care Team Providers Care Surgical Technologist Name Role Phone Haris Jo MD Primary Care Provider Unavailab Grace Rahman MD Primary Care Provider [phone] Talya Webber MD Primary Care Provider + Arun Wiggins MD Unavailable Unavailable Joyce Sanchez NP Unavailable [phone] Reason for Visit * Reason Onset Date Comments REFERRAL 03/08/2021 Encounter Details Date Type Department Care Team Description 03/08/[address] [address] Haris Jo MD REFERRAL Social History Tobacco Use Types Packs/Day Years [...] encounter Miscellaneous Notes * Telephone Encounter - Jacqui José - 03/08/2021 9:43 AM EDT Patient is still waiting for the referral for nuerologist, Please call documented in this encounter Plan of Treatment Not on file documented as of this encounter Visit Diagnoses Not on filedocumented in this encounter Care Teams Surgical Technologist Relationship Specialty Start Date End Date Haris Jo MD PCP - General Internal Medicine 02/20/21 07/23/21 Grace Puga MD [address] [place] [address] PCP - General Internal Medicine 07/24/21 05/07/22 Talya Webber MD [address] [place] [address] PCP - General Internal Medicine 05/08/22 Arun Wiggins MD [address] [place] [address] Specialist Cardiovascular Disease 11/16/22 4 Joyce Sanchez NP [address] [place] [address] 72731 Nurse Practitioner Cardiology 05/27/24 documented as of this encounter
--- OUTSIDE RECORDS SUMMARY | 2025-01-20 17:06 | XMS_ITS | Encounter Summary ---
Author Organization [facility] Address [address] [place] [address] Care Team Providers Care Plate And Weld Inspector Name Role Phone Talya Webber MD Primary Care Provider + Arun Wiggins MD Unavailable Unavailable Joyce Sanchez NP Unavailable [phone] Encounter Details Date Type Department Care Team Description 12/07/2022 Telephone Adult Medicine [address] [address] Jacqueline Oswald PA-C [address] [place] [address] Social History Tobacco Use Types Packs/Day Years [...] Exposure Response Date Recorded In the last 10 days, have yo u been in contact with someone who was confirmed or suspected to have Coronavirus/COVID-19? No / Unsure 12/07/2022 9:25 AM EST documented as of this encounter Miscellaneous Notes * Telephone Encounter - Jacqueline Oswald PA-C - 12/10/2022 8:00 AM EST Thank you Rx for Flovent sent, Brand only listed on Rx. * Telephone Encounter - Jacqueline Oswald PA-C - 12/07/2022 12:15 PM EST Patient received a letter from [facility] [employer] stating that fluticasone 110 mcg is not included oncovered formulary. They did not recommend an alternative. Can we find out if there is a covered alternative possibility? Thank you documented in this encounter Plan of Treatment Not on file documented as of this encounter Visit Diagnoses Not on filedocumented in this encounter Care Teams Plate And Weld Inspector Relationship Specialty Start Date End Date Talya Webber MD [address] [place] [address] PCP - General Internal Medicine 05/08/22 Arun Wiggins MD [address] [place], [place] [phone] Specialist Cardiovascular Disease 11/16/22 4 Joyce Sanchez NP [address] [place] [address] Nurse Practitioner Cardiology 05/27/24 documented as of this encounter
--- OUTSIDE RECORDS SUMMARY | 2025-01-20 17:06 | XMS_ITS | Encounter Summary ---
Author Organization [facility] Address [address] [place] [address] Care Team Providers Care Granite Polisher Apprentice Name Role Phone Talya Webber MD Primary Care Provider + Arun Wiggins MD Unavailable Unavailable Joyce Sanchez NP Unavailable [phone] Encounter Details Date Type Department Care Team Description 03/12/2023 Community Engagement Leader Report Medical Records [address] [place] [address] [facility], [place] Social History Tobacco Use Types Packs/Day Years [...] on filedocumented in this encounter Care Teams Granite Polisher Apprentice Relationship Specialty Start Date End Date Talya Webber MD [address] [place] [address] [phone] PCP - General Internal Medicine 05/08/22 Arun Wiggins MD [address] [place] [address]85 Specialist Cardiovascular Disease 11/16/22 4 Joyce Sanchez NP [address] [place], [place] [phone] Nurse Practitioner Cardiology 05/27/24 documented as of this encounter
--- OUTSIDE RECORDS SUMMARY | 2025-01-20 17:06 | XMS_ITS | Encounter Summary ---
Author Organization [facility] Address [address] [place] [address] Care Team Providers Care Records Management Director Name Role Phone Torsten Hernandez MD Primary Care Provider + [phone] Haris Jo MD Primary Care Provider Unavailab Grace Rahman MD Primary Care Provider [phone] Talya Webber MD Primary Care Provider + Arun Wiggins MD Unavailable Unavailable Joyce Sanchez NP Unavailable [phone] Encounter Details Date Type Department Care Team Description 12/23/2017 Parachute Supervisor Report Medical Records [address] [place] [address] Abstract, Provider Social History Tobacco Use Types [...] on filedocumented in this encounter Care Teams Records Management Director Relationship Specialty Start Date End Date Torsten Hernandez MD [address] [place] [address] PCP - General Internal Medicine 10/24/11 02/19/21 Haris Jo MD [address] [place], [place] [phone] PCP - General Internal Medicine 02/20/21 07/23/21 Grace Puga MD [address] [place] [address] PCP - General Internal Medicine 07/24/21 05/07/22 Talya Webber MD [address] [place] [address] PCP - General Internal Medicine 05/08/22 Arun Wiggins MD [address] [place] [address] Specialist Cardiovascular Disease 11/16/22 4 Joyce Sanchez NP [address] [place], [place] [phone] Nurse Practitioner Cardiology 05/27/24 documented as of this encounter
--- OUTSIDE RECORDS SUMMARY | 2025-01-20 17:06 | XMS_ITS | Encounter Summary ---
Author Organization [facility] Address [address] [place] [address] Care Team Providers Care Urologic Surgeon Name Role Phone Torsten Hernandez MD Primary Care Provider + [phone] Haris Jo MD Primary Care Provider Unavailab Grace Rahman MD Primary Care Provider [phone] Talya Webber MD Primary Care Provider + Arun Wiggins MD Unavailable Unavailable Joyce Sanchez NP Unavailable [phone] Encounter Details Date Type Department Care Team Description 07/16/2019 Vp Scientific Affairs Report Medical Records [address] [place] [address] Socrates Rose MD Social History Tobacco Use [...] on filedocumented in this encounter Care Teams Urologic Surgeon Relationship Specialty Start Date End Date Torsten Hernandez MD [address] [place] [address] PCP - General Internal Medicine 10/24/11 02/19/21 Haris Jo MD [address] [place] [address] PCP - General Internal Medicine 02/20/21 07/23/21 Grace Puga MD [address] [place] [address] PCP - General Internal Medicine 07/24/21 05/07/22 Talya Webber MD [address] [place] [address] PCP - General Internal Medicine 05/08/22 Arun Wiggins MD [address] [place], [place] [phone] Specialist Cardiovascular Disease 11/16/22 4 Joyce Sanchez NP [address] [place] [address] Nurse Practitioner Cardiology 05/27/24 documented as of this encounter
--- OUTSIDE RECORDS SUMMARY | 2025-01-20 17:06 | XMS_ITS | Encounter Summary ---
Author Organization [facility] Address [address] [place] [address] Care Team Providers Care Print Traffic Manager Name Role Phone Torsten Hernandez MD Primary Care Provider + [phone] Haris Jo MD Primary Care Provider Unavailab Grace Rahman MD Primary Care Provider [phone] Talya Webber MD Primary Care Provider + Arun Wiggins MD Unavailable Unavailable Joyce Sanchez NP Unavailable [phone] Encounter Details Date Type Department Care Team Description 02/13/2017 SCAN Medical Records [address] [place] [address] Arun Wiggins MD Social History Tobacco Use Types Packs/Day [...] Name Priority Date/Time Associated Diagnosis Comments OUTSIDE ECHO Routine 02/13/2017 documented in this encounter Results * OUTSIDE ECHO (02/13/2017) Provider Default CARDIOLOGY documented in this encounter Visit Diagnoses Not on filedocumented in this encounter Care Teams Print Traffic Manager Relationship Specialty Start Date End Date Torsten Hernandez MD [address] [place] [address] PCP - General Internal Medicine 10/24/11 02/19/21 Haris Jo MD [address] [place] [address] 27421 PCP - General Internal Medicine 02/20/21 07/23/21 Grace Puga MD [address] [place] [address] PCP - General Internal Medicine 07/24/21 05/07/22 Talya Webber MD [address] [place] [address] PCP - General Internal Medicine 05/08/22 Arun Wiggins MD [address] [place] [address]84 Specialist Cardiovascular Disease 11/16/22 4 Joyce Sanchez NP [address] [place] [address] Nurse Practitioner Cardiology 05/27/24 documented as of this encounter
--- OUTSIDE RECORDS SUMMARY | 2025-01-20 17:06 | XMS_ITS | Encounter Summary ---
Author Organization [facility] Address [address] [place] [address] Care Team Providers Care Social Service Worker Name Role Phone Grace Puga MD Primary Care Provider [phone] Talya Webber MD Primary Care Provider + Arun Wiggins MD Unavailable Unavailable Joyce Sanchez NP Unavailable [phone] Encounter Details Date Type Department Care Team Description 03/13/2022 Prototype Assembler Electronics Report Medical Records [address] [place] [address] [facility], [place] Social History Tobacco Use Types Packs/Day Years [...] on filedocumented in this encounter Care Teams Social Service Worker Relationship Specialty Start Date End Date Grace Puga MD [address] [place] [address] [phone] PCP - General Internal Medicine 07/24/21 05/07/22 Talya Webber MD [address] [place] [address] [phone] PCP - General Internal Medicine 05/08/22 Arun Wiggins MD [address] [place] [address] Specialist Cardiovascular Disease 11/16/22 4 Joyce Sanchez NP [address] [place] [address] Nurse Practitioner Cardiology 05/27/24 documented as of this encounter
--- OUTSIDE RECORDS SUMMARY | 2025-01-20 17:06 | XMS_ITS | Encounter Summary ---
Author Organization [facility] Address [address] [place] [address] Care Team Providers Care Chemical Treatment Plant Technician Name Role Phone Torsten Hernandez MD Primary Care Provider + [phone] Haris Jo MD Primary Care Provider Unavailab Grace Rahman MD Primary Care Provider +[phone] Talya Webber MD Primary Care Provider + Arun Wiggins MD Unavailable Unavailable Joyce Sanchez NP Unavailable [phone] Encounter Details Date Type Department Care Team Description 03/28/2017 Heel Slugger Report Medical Records [address] [place] [address] Socrates Rose MD Social History Tobacco Use [...] on filedocumented in this encounter Care Teams Chemical Treatment Plant Technician Relationship Specialty Start Date End Date Torsten Hernandez MD [address] [place] [address] PCP - General Internal Medicine 10/24/11 02/19/21 Haris Jo MD [address] [place] [address] 73162 PCP - General Internal Medicine 02/20/21 07/23/21 Grace Puga MD [address] [place] [address] PCP - General Internal Medicine 07/24/21 05/07/22 Talya Webber MD [address] [place] [address] PCP - General Internal Medicine 05/08/22 Arun Wiggins MD [address] [place], [place] [phone] Specialist Cardiovascular Disease 11/16/22 4 Joyce Sanchez NP [address] [place] [address] Nurse Practitioner Cardiology 05/27/24 documented as of this encounter
--- OUTSIDE RECORDS SUMMARY | 2025-01-20 17:06 | XMS_ITS | Encounter Summary ---
Author Organization [facility] Address [address] [place] [address] Care Team Providers Care Transit Vehicle Inspector Name Role Phone Torsten Hernandez MD Primary Care Provider + [phone] Haris Jo MD Primary Care Provider Unavailab Grace Rahman MD Primary Care Provider [phone] Talya Webber MD Primary Care Provider + Arun Wiggins MD Unavailable Unavailable Joyce Sanchez NP Unavailable [phone] Encounter Details Date Type Department Care Team Description 12/17/2019 Ornamental Metalwork Designer Report Medical Records [address] [place] [address] Socrates Rose MD Social History Tobacco Use [...] on filedocumented in this encounter Care Teams Transit Vehicle Inspector Relationship Specialty Start Date End Date Torsten Hernandez MD [address] [place] [address] 13818 PCP - General Internal Medicine 10/24/11 02/19/21 Haris Jo MD [address] [place] [address] PCP - General Internal Medicine 02/20/21 07/23/21 Grace Puga MD [address] [place] [address] PCP - General Internal Medicine 07/24/21 05/07/22 Talya Webber MD [address] [place] [address] PCP - General Internal Medicine 05/08/22 Arun Wiggins MD [address] [place], [place] [phone] Specialist Cardiovascular Disease 11/16/22 4 Joyce Sanchez NP [address] [place] [address]89 Nurse Practitioner Cardiology 05/27/24 documented as of this encounter
--- OUTSIDE RECORDS SUMMARY | 2025-01-20 17:06 | XMS_ITS | Encounter Summary ---
Author Organization [facility] Address [address] [place] [address] Care Team Providers Care Office Nurse Name Role Phone Torsten Hernandez MD Primary Care Provider + [phone] Haris Jo MD Primary Care Provider Unavailab Grace Rahman MD Primary Care Provider +[phone] Talya Webber MD Primary Care Provider + Arun Wiggins MD Unavailable Unavailable Joyce Sanchez NP Unavailable [phone] Encounter Details Date Type Department Care Team Description 11/08/2016 Professional Wrestler Report Medical Records [address] [place] [address] Socrates Rose MD Social History Tobacco Use [...] on filedocumented in this encounter Care Teams Office Nurse Relationship Specialty Start Date End Date Torsten Hernandez MD [address] [place] [address] PCP - General Internal Medicine 10/24/11 02/19/21 Haris Jo MD [address] [place] [address] PCP - General Internal Medicine 02/20/21 07/23/21 Grace Puga MD [address] [place] [address] PCP - General Internal Medicine 07/24/21 05/07/22 Talya Webber MD [address] [place] [address] PCP - General Internal Medicine 05/08/22 Arun Wiggins MD [address] [place], [place] [phone] Specialist Cardiovascular Disease 11/16/22 4 Joyce Sanchez NP [address] [place] [address] Nurse Practitioner Cardiology 05/27/24 documented as of this encounter
--- OUTSIDE RECORDS SUMMARY | 2025-01-20 17:06 | XMS_ITS | Encounter Summary ---
Author Organization [employer] [facility] Address [address] [place] [address] Care Team Providers Care Manager Of Financial Planning Name Role Phone Torsten Hernandez MD Primary Care Provider + [phone] Haris Jo MD Primary Care Provider Unavailab Grace Rahman MD Primary Care Provider [phone] Talya Webber MD Primary Care Provider + Arun Wiggins MD Unavailable Unavailable Joyce Sanchez NP Unavailable [phone] Encounter Details Date Type Department Care Team Description 08/25/2018 Food And Beverage Lead Report Medical Records [address] [place] [address] [facility] [place] Social History Tobacco Use Types Packs/Day Years [...] filedocumented in this encounter Care Teams Manager Of Financial Planning Relationship Specialty Start Date End Date Torsten Hernandez MD [address] [place] [address] PCP - General Internal Medicine 10/24/11 02/19/21 Haris Jo MD [address] [place] [address] 149[address] PCP - General Internal Medicine 02/20/21 07/23/21 Grace Puga MD [address] [place] [address] PCP - General Internal Medicine 07/24/21 05/07/22 Talya Webber MD [address] [place] [address] PCP - General Internal Medicine 05/08/22 Arun Wiggins MD [address] [place] [address] Specialist Cardiovascular Disease 11/16/22 4 Joyce Sanchez NP [address] [place], [place] [phone] Nurse Practitioner Cardiology 05/27/24 documented as of this encounter
--- OUTSIDE RECORDS SUMMARY | 2025-01-20 17:06 | XMS_ITS | Encounter Summary ---
Author Organization [employer] [facility] Address [address] [place] [address] Care Team Providers Care Leisure Travel Agent Name Role Phone Torsten Hernandez MD Primary Care Provider + [phone] Haris Jo MD Primary Care Provider Unavailab Grace Rahman MD Primary Care Provider +[phone] Talya Webber MD Primary Care Provider + Arun Wiggins MD Unavailable Unavailable Joyce Sanchez NP Unavailable [phone] Encounter Details Date Type Department Care Team Description 08/13/2017 Art Gilder Report Medical Records [address] [place] [address] [facility] [place] Social History Tobacco Use Types Packs/Day Years [...] on filedocumented in this encounter Care Teams Leisure Travel Agent Relationship Specialty Start Date End Date Torsten Hernandez MD [address] [place] [address] PCP - General Internal Medicine 10/24/11 02/19/21 Haris Jo MD [address] [place] [address] 487[address] PCP - General Internal Medicine 02/20/21 07/23/21 Grace Puga MD [address] [place] [address] PCP - General Internal Medicine 07/24/21 05/07/22 Talya Webber MD [address] [place] [address] PCP - General Internal Medicine 05/08/22 Arun Wiggins MD [address] [place] [address] Specialist Cardiovascular Disease 11/16/22 4 Joyce Sanchez NP [address] [place], [place] [phone] Nurse Practitioner Cardiology 05/27/24 documented as of this encounter
--- OUTSIDE RECORDS SUMMARY | 2025-01-20 17:06 | XMS_ITS | Encounter Summary ---
Author Organization [facility] Address [address] [place] [address] Care Team Providers Care Finisher Tailor Apprentice Name Role Phone Torsten Hernandez MD Primary Care Provider + [phone] Haris Jo MD Primary Care Provider Unavailab Grace Rahman MD Primary Care Provider [phone] Talya Webber MD Primary Care Provider + Arun Wiggins MD Unavailable Unavailable Joyce Sanchez NP Unavailable [phone] Encounter Details Date Type Department Care Team Description 05/27/2018 Vp Strategic Partnerships Report Medical Records [address] [place] [address] Abstract, Provider Social History Tobacco Use Types [...] on filedocumented in this encounter Care Teams Finisher Tailor Apprentice Relationship Specialty Start Date End Date Torsten Hernandez MD [address] [place] [address] PCP - General Internal Medicine 10/24/11 02/19/21 Haris Jo MD [address] [place], [place] [phone] PCP - General Internal Medicine 02/20/21 07/23/21 Grace Puga MD [address] [place] [address] PCP - General Internal Medicine 07/24/21 05/07/22 Talya Webber MD [address] [place] [address] PCP - General Internal Medicine 05/08/22 Arun Wiggins MD [address] [place] [address] Specialist Cardiovascular Disease 11/16/22 4 Joyce Sanchez NP [address] [place], [place] [phone] Nurse Practitioner Cardiology 05/27/24 documented as of this encounter
--- OUTSIDE RECORDS SUMMARY | 2025-01-20 17:06 | XMS_ITS | Encounter Summary ---
Author Organization [facility] Address [address] [place] [address] Care Team Providers Care Inspector Timers Name Role Phone Torsten Hernandez MD Primary Care Provider + [phone] Haris Jo MD Primary Care Provider Unavailab Grace Rahman MD Primary Care Provider [phone] Talya Webber MD Primary Care Provider + Arun Wiggins MD Unavailable Unavailable Joyce Sanchez NP Unavailable [phone] Encounter Details Date Type Department Care Team Description 12/02/2018 Joint Yarner Report Medical Records [address] [place] [address] Abstract, Provider Social History Tobacco Use Types [...] on filedocumented in this encounter Care Teams Inspector Timers Relationship Specialty Start Date End Date Torsten Hernandez MD [address] [place] [address] PCP - General Internal Medicine 10/24/11 02/19/21 Haris Jo MD [address] [place], [place] [phone] PCP - General Internal Medicine 02/20/21 07/23/21 Grace Puga MD [address] [place] [address] PCP - General Internal Medicine 07/24/21 05/07/22 Talya Webber MD [address] [place] [address] PCP - General Internal Medicine 05/08/22 Arun Wiggins MD [address] [place] [address] Specialist Cardiovascular Disease 11/16/22 4 Joyce Sanchez NP [address] [place], [place] [phone] Nurse Practitioner Cardiology 05/27/24 documented as of this encounter
--- OUTSIDE RECORDS SUMMARY | 2025-01-20 17:06 | XMS_ITS | Encounter Summary ---
Author Organization [facility] Address [address] [place] [address] Care Team Providers Care Pug Mill Operator Name Role Phone Talya Webber MD Primary Care Provider + Joyce Sanchez NP Unavailable [phone] Reason for Visit * Reason Onset Date Comments medication problems 02/24/2024 Encounter Details Date Type Department Care Team Description 02/24/2024 Telephone Adult Medicine [address] [address] Talya Webber MD [address] [place] [address] [phone] medication problems Social History Tobacco Use Types Packs/Day Years [...] encounter Miscellaneous Notes * Telephone Encounter - Patsy Rodrigues - 02/24/2024 2:00 PM EDT Called and advised patient to call insurance company and ask them what would be covered and to callus back so we can send a message to the provider for a new script * Telephone Encounter - Marcy Thakkar - 02/24/2024 1:51 PM EDT Who is calling? The patient Name of the medication ALBUTEROL SULFATE (ProAir HFA) 108 (90 Base) MCG/ACT Aero Soln What is the specific problem or interaction? Patient states insurance no longer covers medication, requesting a new script for medication alternative be fax over to [facility]. If the patient is having a problem with taking the med - how long has the problem been going on? N/A documented in this encounter Plan of Treatment Not on file documented as of this encounter Visit Diagnoses Not on filedocumented in this encounter Care Teams Pug Mill Operator Relationship Specialty Start Date End Date Talya Webber MD [address] [place], [place] [phone] PCP - General Internal Medicine 05/08/22 Joyce aSnchez NP [address] [place], [place] [phone] Nurse Practitioner Cardiology 05/27/24 documented as of this encounter
--- OUTSIDE RECORDS SUMMARY | 2025-01-20 17:06 | XMS_ITS | Encounter Summary ---
Author Organization [facility] Address [address] [place] [address] Care Team Providers Care Measurement Operator Name Role Phone Talya Webber MD Primary Care Provider + Arun Wiggins MD Unavailable Unavailable Joyce Sanchez NP Unavailable [phone] Encounter Details Date Type Department Care Team Description 11/24/2022 Release of Information Medical Records [address] [place] [address] [facility] Social History Tobacco Use Types Packs/Day Years [...] Recorded In the last 10 days, have jose j bull been in contact with someone who was confirmed or suspected to have Coronavirus/COVID-19? No / Unsure 11/08/2022 10:26 AM EST documented as of this encounter Plan of Treatment Not on file documented as of this encounter Visit Diagnoses Not on filedocumented in this encounter Care Teams Measurement Operator Relationship Specialty Start Date End Date Talya Webber MD [address] [place] [phone] PCP - General Internal Medicine 05/08/22 Arun Wiggins MD [address] [place] [address] Specialist Cardiovascular Disease 11/16/22 4 Joyce Sanchez NP [address] [place] [address] Nurse Practitioner Cardiology 05/27/24 documented as of this encounter
--- OUTSIDE RECORDS SUMMARY | 2025-01-20 17:06 | XMS_ITS | Clinical Summary ---
Author Organization [facility] Address [address] [place] [address] Care Team Providers Care Senior Grant Writer Name Role Phone Haris Jo MD Primary Care Provider [phone] Allergies No known active allergies Medications Medication Sig Dispensed Refills Start Date End Date Status amLODIPine (NORVASC) tablet 10 mg Take 1 tablet (10 mg total) by mouth daily. 0 Active fluticasone (FLOVENT HFA) 110 MCG/ACT inhaler Inhale 1 puff into the lungs 2 (two) times a day. 0 Active Albuterol Sulfate (PROAIR HFA IN) Inhale 2 puffs into the lungs every 4 (four) hours as needed. 0 Active Multiple Vitamins-Minerals (CENTRUM SILVER 50+WOMEN PO) Take 1 tablet by mouth daily. 0 Active benzoyl peroxide 5 % cream Apply topically every night at bedtime. 0 Active Rasagiline Mesylate (AZILECT) 1 MG TABS tablet Take 1 tablet (1 mg total) by mouth daily. 0 Active clindamycin phosphate (CLEOCIN T) 1 % lotion Apply 1 application. topically 2 (two) times a day. 0 Active rivaroxaban (XARELTO) 20 MG TABS tablet Take 1 tablet (20 mg total) by mouth daily. 0 Active levothyroxine (SYNTHROID) tablet 25 mcg Take 1 tablet (25 mcg total) by mouth every morning on an empty stomach. 0 Active Active Problems No known active problems Family History Medical History Relation Name Comments Cancer Mother breast cancer Cancer Other aunt breast cancer Relation Name Status Comments Mother Other aunt Alive Social History Tobacco Use Types Packs/Day Years Used Date Smoking Tobacco: Never Smokeless Tobacco: Never Alcohol Use Standard Drinks/Week Comments No 0 (1 standard drink = 0.6 oz pur e alcohol) Sex and Gender Information Value Date Recorded Sex Assigned at Not on file Gender Identity Not on file Sexual Orientation Not on file Job Start Date Occupation Industry Not on file Not on file Not on file Last Filed Vital Signs Vital Sign Reading Time Taken Comments Blood Pressure 155/66 07/08/2023 11:12 AM EDT Pulse 76 07/08/2023 11:12 AM EDT Temperature 36.6 ??C (97.8 ??F) 07/08/2023 11:12 AM E DT Respiratory Rate - - Oxygen Saturation 99% 07/08/2023 11:12 AM EDT Inhaled Oxygen Concentration - - Weight 71.2 kg (157 lb) 07/08/2023 11:12 AM EDT Height 154.9 cm (5' 1 ) 07/08/2023 11:12 AM EDT Body Mass Index 29.66 07/08/2023 11:12 AM EDT Plan of Treatment Health Maintenance Due Date Last Done Comments Hepatitis C Screening 1949 Depression Screening 1961 Preventative Health Evaluation 1967 Colon Cancer Screening (Colonoscopy) 1994 Fall Risk Assessment 2014 Osteoporosis Screening (DEXA Scan) 2014 Pneumococcal Vaccine (3 of 3 - PPSV23 or PCV20) 03/01/2020 03/01/2015, 04/23/2012 DTap / Tdap / Td (2 - Td or Tdap) 04/23/2022 04/23/2012, 04/03/2004 RSV Adult > 60+ Yrs or (1 - 1-dose 75+ series) 2024 COVID-19 Vaccine (3 - season) 2024 12/30/2020, 12/02/2020 Influenza Vaccine (#1) 2024 3, 07/18/2022, 06/19/2021, Additional history exists Shingrix-Zoster Vaccine Completed 08/01/20 20, 07/07/2020, 12/01/2019, Additional history exists Hepatitis B Vaccines Aged Out No long er eligible based on patient's age to complete this topic RSV Ped < 20 months Aged Out No longe r eligible based on patient's age to complete this topic Care Teams Senior Grant Writer Relationship Specialty Start Date End Date Haris Jo MD [address] [place] [address] PCP - General Internal Medicine 06/22/21
--- OUTSIDE RECORDS SUMMARY | 2025-01-20 17:07 | XMS_ITS | Encounter Summary ---
Author Organization [facility] Address [address] [place] [address] Care Team Providers Care Social Studies Teacher Name Role Phone Talya Webber MD Primary Care Provider + Joyce Sanchez SUPERVISOR PILE DRIVING Unavailable [phone] Encounter Details Date Type Department Care Team Description 12/05/2023 SCAN Medical Records [address] [place] [id number] [facility] Social History Tobacco Use Types [...] filedocumented in this encounter Care Teams Social Studies Teacher Relationship Specialty Start Date End Date Talya Webber MD [address] [place] [address] PCP - General Internal Medicine 05/08/22 Joyce Sanchez NP [address] [place] [address] [phone] Nurse Practitioner Cardiology 05/27/24 documented as of this encounter
== END 2025-01-20 14:47 | disposition home or self-care (01) ==
LOC: HO.HSMS 14:20
PROVIDERS: PCP Family Medicine; Visit Provider Psychiatry & Neurology Neurology
DX: G20.A2 Parkinson's disease without dyskinesia, with fluctuations (principal); R20.2 Paresthesia of skin
CPT/HCPCS: 99214; G2211

== ENCOUNTER → 2025-01-20 14:19 | Outpatient (BNVA) | payer MEDICARE, SELFPAY | PROVIDERS: PCP Family Medicine; Visit Provider Psychiatry & Neurology Neurology | DX: G20.A2 Parkinson's disease without dyskinesia, with fluctuations (principal); R20.2 Paresthesia of skin | CPT/HCPCS: 99212 ==

== ENCOUNTER 2025-07-09 14:01 | Outpatient (AMB) | payer MEDICARE, BC, SELFPAY ==
--- NOTE | 2025-07-09 14:03 | A.OFFVIS_ITS ---
Vital Signs 07/09/25 14:04 Height 5 ft 1 in Weight 150 lb 2 oz BMI 28.4 BP 122/74 Blood Pressure Location Rt brachial Position Sitting Pulse 79 Pulse Source Pulse Oximeter Pulse Oximetry (%) 97 Oxygen Delivery Method Room Air Intake Visit Reasons: 6 mo follow up Intake Note: Follow up Parkinson's, Paresthesia of skin Seasonal Recruiter Required: No Accompanied by: Self / Same As Patient Allergies No Known Allergies Allergy (Verified 07/09/25 14:04) Medication List - Last Reconciled 07/09/25 by Alexandra Horowitz MD amlodipine 10 mg PO DAILY carbidopa-levodopa 25-100 mg 1 tab PO BID 30 days diclofenac sodium 1% 1 g topical TID fluticasone propionate 110 mcg/actuation (Flovent HFA) 2 puffs inhalation BID levothyroxine 25 mcg PO DAILY zyzwujvc-fxmsgkd-aacz-lutein tabs PO DAILY rasagiline 1 mg PO DAILY 90 days rivaroxaban (Xarelto) 20 mg PO DAILY [Wrist Splint As directed] HPI Comments Details: 75-yr-old Right handed female presents for f/u visit.she is doing well , still has numbness in the toes but managaeble.. she denies back pain.she stopped chemo in Jun 2024. she denies pain - more tingling than numbness in her toes.it is worse when she is wearing shoes .she also has some numbness in her left hand . she denies falls. she started aerobics again .Right-handed pt. ADL's: Ind Swallowing:?No issues Cough: Covid, August 2024. Drooling: Some drooling at night. Orthostatic lightheadedness:?Denies Constipation:? Denies Freezing:? Does not occur Stiffness: Gait is better since she increased the carbidopa/levodopa dose. Tremor: LUE > RUE tremor is more consistent. Falls:? None. Has an apple watch now just in case. Hallucinations:?Denies. Memory:?Memory is good- keeps lists but always has. Sleep:? Sleeping well. Denies snoring Significant past medical history: Re-diagnosed with cancer with Lymphoma, and f/u in March 2024 she started chemo, then remission Jun. She sees Dr. Dow in [facility]. Pt's current PD medication regimen: Rasagiline 1mg qd. currently taking CD/LD 1 tab bid . PFSH Medical History Paresthesias Lymphoma Parkinson's disease Rosacea Family History Mother Breast cancer Father Heart attack Social History Household Members: None Alcohol intake: current Alcohol intake frequency: holidays/special occasions only Patient Tobacco Use Status: Never used Tobacco Current occupational status: retired Physical Exam Vital Signs: Last Vital Signs Pulse 79 07/09/25 14:04 BP 122/74 07/09/25 14:04 Pulse Ox 97 07/09/25 14:04 Oxygen Delivery Method Room Air 07/09/25 14:04 BMI result Body Mass Index 28.4 Const General: cooperative, comfortable and no acute distress Nutritional Appearance: average body habitus Orientation/consciousness: patient oriented x3 Eyes Pupils: Equal, round and reactive pupils present Resp Effort & Inspection: normal respiratory effort and able to speak in complete sentences Neuro Other: mild decreased facial expression and blink Mild left UE rest tremors normal speech Normal tone . Mild stoop, decreased arm swing on the right General: patient oriented x3 and moves all extremities Cranial nerves: Yes CN's II-XII intact bilaterally, Yes Facial sensation intact/muscles of mastication intact, Yes Intact sense of smell present, Yes Equal, round and reactive pupils present, Yes Bilaterally intact EOM present, Yes Normal facial strength present, Yes Midline tongue present, Yes Symmetric palate elevation present, Yes Ability to bilaterally rotate head present and Yes Other cranial nerve findings present Cognition (Neuro): normal cognition Gait exam (Neuro): Other gait observations present (Fast paced, Narrow based gait, L. arm does not swing, stooped posture.) Coordination: aifwxl-xh-bohc test normal Psych Appearance: grossly normal Attitude: cooperative Thought content: Normal thought content present Insight: Good insight present (Psych) Judgement: Good judgement present (Psych) Assessment & Plan Assessment & Plan (1) Parkinson's disease without dyskinesia: Code(s): G20.A1 - Parkinson's disease without dyskinesia, without mention of fluctuations Category: Medical Qualifiers: Fluctuating manifestations: with fluctuating manifestations Qualified Code(s): G20.A2 - Parkinson's disease without dyskinesia, with fluctuations (2) Paresthesias: Code(s): R20.2 - Paresthesia of skin Category: Medical Plan Continue sinemet 25-100mg 1 tab BID taken w/ cracker at least 30 minutes prior to - in hopes this lessens rigidity and improves endurance. Reviewed common s/e's to monitor for- OH, GI upset, dyskineisa, hallucinations. Continue?Rasagiline 1mg qd. Continue regular exercise- PD exercises, walking, and yoga. alpha lipoic acid 300-500mg qd for paresthesias - ivette chemo effect left wrist splint for possible carpal tunnel Medications: New [Wrist Splint] As directed 1 ea 0RF carpal tunnel G56.00 - Carpal tunnel syndrome, unspecified upper limb, R20.2 - Paresthesia of skin Coding Level of Care Code Est Pt Level 4 (65726) Complex EM visit Add On G2211 Diagnoses Parkinson's disease without dyskinesia, with fluctuating manifestations G20.A2 Fluctuating manifestations: with fluctuating manifestations Paresthesias R20.2
[2025-07-09 14:04] VITALS: BP 122/74; PULSE 79; O2SAT 97; BMI 28.4
--- OUTSIDE RECORDS SUMMARY | 2025-07-09 14:14 | XMS_ITS | Encounter Summary ---
Author Organization [facility] Address [address] [place] [address] Care Team Providers Care Studio Operations Engineer In Charge Name Role Phone Talya Webber MD Primary Care Pr ovider Encounter Details Date Type Department Care Team (Late Contact Info) Description 01/21/2025 Lab Requisition [facility] - Main Lab [address] [place] [phone] Socrates Rose MD [address] [place] [address] Other specified types of non-hodgkin lymphoma, intra-abdominal lymph nodes (CMS/HCC V24, CMS/HCC V28) Social History Tobacco Use Types Packs/Day Years [...] as of this encounter Plan of Treatment Upcoming Encounters Date Type Department Care Team ([facility] Contact Info) Description 08/11/2025 9:45 AM EST Office Visit Adult Medicine [address] [phone] Talya Webber MD [address] [place] [address] Pending Results Name Type Priority Associated Diagnoses Date /Time Historical Pathology Case Pathology and Cytology Routine Other specified types of non-hodgkin lymphoma, intra-abdominal lymph nodes ([facility] V24, [facility] V28) 01/21/2025 documented as of this encounter Visit Diagnoses Diagnosis Other specified types of non-hodgkin lymphoma, intra-abdominal lymph nodes ([facility] V24, [facility] V28) documented in this encounter Care Teams Studio Operations Engineer In Charge Relationship Specialty Start Date End Date Talya Webber MD [address] [facility], [place] PCP - General Internal Medicine 05/08/22 documented as of this encounter
--- OUTSIDE RECORDS SUMMARY | 2025-07-09 14:14 | XMS_ITS | Encounter Summary ---
Author Organization [facility] Address 399 [facility] [address] [place] [address] Phone Care Team Providers Care Clerical Office Name Role Phone Jovany Dow MD Unavailable Socrates Rose MD Unavailable [phone] Sara Rizvi RN Unavailable [phone] Dinorah Henson Unavailable Silke [email or web address] .[facility] Lori Scott [facility] Unavailable [phone] Talya Webber MD Primary Care Pr ovider Demetrice Horvath RN Unavailable Romi @[facility].[email or web address] Joyce Drummond RN Unavailable JAIME Suárez@[facility].[place].ED Gabriela Nassar RN Unavailable LOWELL JARAMILLO@[facility].[place].ED Alexandra Carranza MD Unavailable [phone] Encounter Details Date Type Department Care Team (Late st Contact Info) Description 02/27/2025 Ancillary Orders [facility] [address] [place] [address] Talya Webber MD [address] [place] [address] Thyroid nodule (Primary Dx) Social History Tobacco Use Types Packs/Day Years Used Date Smoking Tobacco: Never Smokeless Tobacco: Never Alcohol Use Standard Drinks/Week Comments Yes 1 (1 standard drink = 0.6 oz pur e alcohol) 1 gals of wine q2 weeks or so Education Answer Date Recorded Are you interested in more education? Not on christen e 02/01/2023 Are you concerned about learning? Not on file 02/01/2023 No 02/01/2023 No 02/01/2023 Digital Access Answer Date Recorded No 03/04/2023 No 03/04/2023 Reliable internet access at home? Not on file 03/04/2023 Device with a working camera? Not on file Comments No Sex and Gender Information Value Date Recorded Sex Assigned at Female 10/14/2017 9:38 AM EST Legal Sex Female 3:23 PM EDT Gender Identity Female 10/14/2017 9:38 AM EST Sexual Orientation Straight 10/14/2017 9: 38 AM EST documented as of this encounter Functional Status * Patient is deaf or has serious difficulty with hearing Answer Date of Assessment Author No 07/06/2017 8:21 AM EDT Sa ra Rissa Aguayo PA-C * Patient is blind or has serious difficulty with seeing, even when wearing glasses Answer Date of Assessment Author No 07/06/2017 8:21 AM EDT Sa ra Rissa Aguayo PA-C * Patient has serious difficulty walking or climbing stairs (5yr old or older) Answer Date of Assessment Author No 07/06/2017 8:21 AM EDT Sa ra Rissa Aguayo PA-C * Patient has serious difficulty dressing or bathing (5yr old or older) Answer Date of Assessment Author No 07/06/2017 8:21 AM EDT Sa ra Rissa Aguayo PA-C * Patient has serious difficulty doing errands alone such as visiting a doctor???s office or shopping, due to physical, mental, or emotional condition (15 years old or older) Answer Date of Assessment Author No 07/06/2017 8:21 AM EDT Sa ra Rissa Aguayo PA-C documented as of this encounter Mental Status * Patient has serious difficulty concentrating, remembering, or making decisions due to physical, mental, or emotional condition Answer Entry Date Author No 07/06/2017 8:21 AM EDT Sa ra Rissa Aguayo PA-C documented in this encounter Plan of Treatment Upcoming Encounters Date Type Department Care Team (Late st Contact Info) Description 09/20/2025 2:00 PM EST Blood Draw Laboratory Services, [address], 2nd [place] [address] Jovany Dow MD [address] [place] [address] Carson@[email or web address] 09/20/2025 3:00 PM EST Office Visit [facility], Division of Hematologic Oncology, [address], 7th [place] [address] Jovany Dow MD [address] [place] [address] Carson@[email or web address] documented as of this encounter Visit Diagnoses Diagnosis Thyroid nodule- Primary Nontoxic uninodular goiter documented in this encounter Care Teams Clerical Office Relationship Specialty Start Date End Date Talya Webber MD [address] [place] [address] PCP - General Family Medicine 03/09/24 Jovany Dow MD [address] [place] [address] Carson@[facility] Primary Oncologist Oncology 06/19/17 Socrates Rose MD [address] [place] [address] [email or web address] Referring Physician Internal Medicine 06/21/17 Sara Rizvi RN [address] [place] [address] Yvette@[facility] Registered Nurse Software Quality Analyst 07/15/17 Dinorah Henson [address] [place] [address] Olya@[facility] .[facility] Top Installer 10/28/17 Lori Scott, [facility] [address] [place] [address] Gold@[facility] Pediatric Dermatologist Oncology 08/13/17 Demetrice Horvath, RN [address] [place] [address] Romi@[email or web address] Primary Infusion Nurse 04/17/24 Joyce Haywood, SACHIN [address] [place] [address] EDYTA@[facility] Associate Infusion Nurse 05/18/24 Gabriela Rob, SACHIN [address] [place] [address] DENVER@[facility] Associate Infusion Nurse 06/29/24 Alexandra Horowitz MD [address] [place] [address] Neurology 03/08/25 documented as of this encounter Additional Source Comments The information contained in this document represents components of the legal health record. It is not the complete legal health record.[facility]
--- OUTSIDE RECORDS SUMMARY | 2025-07-09 14:14 | XMS_ITS | Encounter Summary ---
Author Organization [facility] Address [address] [address] Phone Care Team Providers Care Flower Maker Name Role Phone Torsten Hernandez MD Primary Care Provider U Jovany Davila MD Unavailable Socrates Rose MD Unavailable [phone] Saira Roger RN Unavailable [phone] Sara Rizvi RN Unavailable [phone] Dinorah Henson Unavailable Silke [email or web address] Nita Godfrey RN Unavailable JAMES LOZANO@[email or web address].ED U Lori Scott [facility] Unavailable [phone] Haris Jo MD Primary Care Provider [phone] Talya Webber MD Primary Care Pr ovider Demetrice Horvath RN Unavailable Romi @[facility].[place].[facility] Joyce Haywood RN Unavailable JAIME Suárez@[facility].[place] Gabriela Rob RN Unavailable LOWELL JARAMILLO@[email or web address].[email or web address] Alexandra Horowitz MD Unavailable [phone] Encounter Details Date Type Department Care Team (Late st Contact Info) Description 06/21/2017 Procedure Pass DF IMG OUTSIDE IMG [address] [place] [address] Social History Tobacco Use Types Packs/Day Years Used Date Smoking Tobacco: Never Assessed Comments Unknown Sex and Gender Information Value Date Recorded [...] 2:00 PM EST Blood Draw Laboratory Services, [address], 2nd [place] [address] Jovany Dow MD [address] [place] [address] Carson@[facility] 09/20/2025 3:00 PM EST Office Visit Center for Lymphoma, Division of Hematologic Oncology, [address], 7th [place] [address] Jovany Dow MD [address] [place] [address] Carson@[facility] documented as of this encounter Visit Diagnoses Not on filedocumented in this encounter Additional Health Concerns Infection Onset Date Last Indicated Resolved Time COVID-19 Comment:Meets severely immunocompromised criteria, contact [facility] for clearance. -- Update Sx improvement 08/28 Negative antigen test 08/28, 09/0208/12/2024 08/13/202409/02 2:14 PM EST documented as of this encounter Care Teams Flower Maker Relationship Specialty Start Date End Date Torsten Hernandez MD PCP - General Internal Medicine 06/18/17 03/06/21 Haris Jo MD [address] [place] [address] [email or web address] .[facility] PCP - General Internal Medicine 03/07/21 03/08/24 Talya Webber MD [address] [place] [address] PCP - General Family Medicine 03/09/24 Jovany Dow MD [address] [place] [address] Carson@[facility] Primary Oncologist Oncology 06/19/17 Socrates Rose MD [address] [place] [address] Palmira@[facility] Referring Physician Internal Medicine 06/21/17 Saira Roger RN [address] [place] [address] Abdias@[facility] Primary Infusion Nurse 07/02/17 11/26/17 Sara Rizvi RN [address] [place] [address] Yvette@[facility] Registered Nurse X Ray Operator 07/15/17 Dinorah Henson [address] [place], [place] Olya@[facility] .[facility] Player Manager 10/28/17 Nita Godfrey RN [address] [place], [place] LETI@[facility] Primary Infusion Nurse 11/27/17 04/16/24 Lori Scott, [address] [address] Gold@[facility] Box Folding Machine Operator Oncology 08/13/17 Demetrice Horvath, SACHIN [address] [place] [address] Romi@[facility] Primary Infusion Nurse 04/17/24 Joyce Haywood RN [address] [place] [address] EDYTA@[facility] Associate Infusion Nurse 05/18/24 Gabriela Rob RN [address] [place] [address] DENVER@[facility] Associate Infusion Nurse 06/29/24 Alexandra Horowitz MD [address] [place] [address] Neurology 03/08/25 documented as of this encounter Additional Source Comments The information contained in this document represents components of the legal health record. It is not the complete legal health record.[facility]
--- OUTSIDE RECORDS SUMMARY | 2025-07-09 14:14 | XMS_ITS | Encounter Summary ---
Author Organization [facility] Address 399 [facility] [address] [place] [address] Phone Care Team Providers Care Fishing Vessel Operator Name Role Phone Torsten Hernandez MD Primary Care Provider U Jovany Davila MD Unavailable Socrates Rose MD Unavailable [phone] Sara Rizvi RN Unavailable [phone] Dinorah Henson Unavailable Silke [email or web address]@[facility].[employer] Nita Godfrey RN Unavailable JAMES LOZANO@[facility].[employer].ED U Lori Scott [facility] Unavailable [phone] Haris Jo MD Primary Care Provider [phone] Talya Webber MD Primary Care Pr ovider Demetrice Horvath RN Unavailable Romi @[facility].[place].[facility] Joyce Haywood RN Unavailable JAIME Suárez@[facility].[employer].[facility] Gabriela Rob RN Unavailable LOWELL JARAMILLO@[facility].[employer].[facility] Alexandra Horowitz MD Unavailable [phone] Encounter Details Date Type Department Care Team (Late st Contact Info) Description 12/24/2017 Procedure Pass [facility] [address] [place] [address] Social History Tobacco Use Types Packs/Day Years Used Date Smoking Tobacco: Never Smokeless Tobacco: Never Alcohol Use Standard Drinks/Week Comments Yes 1 (1 standard drink = 0.6 oz pur e alcohol) 1 gals of wine q2 weeks or so Comments No Sex and Gender Information Value [...] Assessment Author No 07/06/2017 8:21 AM EDT Lisa Aguayo PA-C * Patient is blind or [...] 2:00 PM EST Blood Draw Laboratory Services, [facility] [address] [place] [address], 2nd [place] [address] Jovany Dow MD [address] [place] [address] Carson@[email or web address] 09/20/2025 3:00 PM EST Office Visit Center for Lymphoma, Division of Hematologic Oncology, [facility] [address] [place] [address], 7th [place] [address] Jovany Dow MD [address] [place], [place] [phone] Carson@[facility] documented as of this encounter Visit Diagnoses Not on filedocumented in this encounter Additional Health Concerns Infection Onset Date Last Indicated Resolved Time COVID-19 Comment:Meets severely immunocompromised criteria, contact [facility] for clearance. -- Update Sx improvement 08/28 Negative antigen test 08/28, 09/0208/12/2024 08/13/202409/02 2:14 PM EST documented as of this encounter Care Teams Fishing Vessel Operator Relationship Specialty Start Date End Date Torsten Hernandez MD PCP - General Internal Medicine 06/18/17 03/06/21 Haris Jo MD [address] [place] [address] [email or web address] .[facility] PCP - General Internal Medicine 03/07/21 03/08/24 Talya Webber MD [address] [place] [address] PCP - General Family Medicine 03/09/24 Jovany Dow MD [address] [place] [address] Carson@[facility] Primary Oncologist Oncology 06/19/17 Socrates Rose MD [address] [place] [address] Angelitaqui@[facility][note 3][email or web address].co Referring Physician Internal Medicine 06/21/17 Sara Rizvi RN [address] [place] [address] Yvette@[facility] Registered Nurse Principal Database Developer 07/15/17 Dinorah Henson [address] [place], [place] Olya@[facility] Sheet Metal Helper 10/28/17 Nita Godfrey, SACHIN [address] [place], [place] LETI@[email or web address] Primary Infusion Nurse 11/27/17 04/16/24 Lori Scott, [facility] [address] [place] [address] Gold@[email or web address] Java Software Oncology 08/13/17 Demetrice Horvath, RN [address] [place] [address] Romi@[facility] Primary Infusion Nurse 04/17/24 Joyce Haywood, SACHIN [address] [place] [address] EDYTA@[facility] Associate Infusion Nurse 05/18/24 Gabriela Rob, SACHIN [address] [place] [address] DENVER@[facility] Associate Infusion Nurse 06/29/24 Alexandar Horowitz MD [address] [place] [address] Neurology 03/08/25 documented as of this encounter Additional Source Comments The information contained in this document represents components of the legal health record. It is not the complete legal health record.[facility]
--- OUTSIDE RECORDS SUMMARY | 2025-07-09 14:14 | XMS_ITS | Encounter Summary ---
Author Organization [facility] Address 399 [facility] [address] [place] [address] Phone Care Team Providers Care Arch Pad Cementer Name Role Phone Jovany Dow MD Unavailable Socrates Rose MD Unavailable [phone] Sara Rizvi RN Unavailable [phone] Dinorah Henson Unavailable Dinorah_Mariana [email or web address] .EDU Nita Godfrey RN Unavailable JAMES LOZANO@[email or web address].[place].E Lori Amador [facility] Unavailable [phone] Talya Webber MD Primary Care Pr ovider Demetrice Horvath RN Unavailable Romi @[facility].[place].ed u Joyce Haywood RN Unavailable JAIME Suárez@[facility].[place].ED Gabriela Nassar RN Unavailable LOWELL JARAMILLO@[email or web address].[email or web address].ED Alexandra Carranza MD Unavailable [phone] Encounter Details Date Type Department Care Team (Late st Contact Info) Description 03/27/2024 Procedure Pass [facility] Cross Sectional Interventional Radiology [address] [place] [address] Social History Tobacco Use Types Packs/Day Years [...] 2:00 PM EST Blood Draw Laboratory Services, [address], 2nd [place] [address] Jovany Dow MD [address] [place] [address] Carson@[facility] 09/20/2025 3:00 PM EST Office Visit Center for Lymphoma, Division of Hematologic Oncology, [address], 7th [place] [address] Jovany Dow MD [address] [place] [address] Carson@[facility] documented as of this encounter Visit Diagnoses Not on filedocumented in this encounter Additional Health Concerns Infection Onset Date Last Indicated Resolved Time COVID-19 Comment:Meets severely immunocompromised criteria, contact [facility] for clearance. -- Update Sx improvement 08/28 Negative antigen test 08/28, 09/0208/12/2024 08/13/202409/02 2:14 PM EST documented as of this encounter Care Teams Arch Pad Cementer Relationship Specialty Start Date End Date Talya Webber MD [address] [place] [address] PCP - General Family Medicine 03/09/24 Jovany Dow MD [address] [place] [address] Carson@[facility] Primary Oncologist Oncology 06/19/17 Socrates Rose MD [address] [place] [address] Palmira@[email or web address] Referring Physician Internal Medicine 06/21/17 Sara Rizvi RN [address] [place] [address] Yvette@[facility] Registered Nurse Needle Molder 07/15/17 Dinorah Henson [address] [place] [address] Olya@[facility] Network Operations Lead 10/28/17 Nita Godfrey, SACHIN [address] [place], [place] LETI@[facility] Primary Infusion Nurse 11/27/17 04/16/24 Lori Scott, [facility] [address] [place] [address] Gold@[facility] Referral Manager Oncology 08/13/17 Demetrice Horvath, SACHIN [address] [place] [address] Romi@[facility] Primary Infusion Nurse 04/17/24 Joyce Haywood, SACHIN [address] [place] [address] EDYTA@[facility] Associate Infusion Nurse 05/18/24 Gabriela Rob, RN [address] [place] [address] DENVER@[facility] Associate Infusion Nurse 06/29/24 Alexandra Horowitz MD [address] [place] [address] Neurology 03/08/25 documented as of this encounter Additional Source Comments The information contained in this document represents components of the legal health record. It is not the complete legal health record.[facility]
--- OUTSIDE RECORDS SUMMARY | 2025-07-09 14:14 | XMS_ITS | Encounter Summary ---
Author Organization [facility] Address 399 [facility] [address] [place] [address] Phone Care Team Providers Care Plug Maker Name Role Phone Torsten Hernandez MD Primary Care Provider U Jovany Davila MD Unavailable Socrates Rose MD Unavailable [phone] Saira Roger RN Unavailable [phone] Sara Rizvi RN Unavailable [phone] Dinorah Henson Unavailable Silke [email or web address]@[email or web address].[place] Nita Godfrey RN Unavailable JAMES LOZANO@[facility].[place].ED U Lori Scott [facility] Unavailable [phone] Haris Jo MD Primary Care Provider [phone] Talya Webber MD Primary Care Pr ovider Demetrice Horvath RN Unavailable Romi @[facility].[place] Joyce Haywood RN Unavailable JAIME Suárez@[facility].[place] Gabriela Rob RN Unavailable LOWELL JARAMILLO@[facility].[place].[facility] Alexandra Horowitz MD Unavailable [phone] Encounter Details Date Type Department Care Team (Late st Contact Info) Description 06/24/2017 Procedure Pass [facility] [address] [place] [address] Social History Tobacco Use Types Packs/Day Years [...] 2:00 PM EST Blood Draw Laboratory Services, [address], 2nd [place] [address] Jovany Dow MD [address] [place] [address] Carson@[facility] 09/20/2025 3:00 PM EST Office Visit Center for Lymphoma, Division of Hematologic Oncology, [address], 7th [place] [address] Jovany Dow MD [address] [place] [address] Carson@[facility] documented as of this encounter Visit Diagnoses Not on filedocumented in this encounter Additional Health Concerns Infection Onset Date Last Indicated Resolved Time COVID-19 Comment:Meets severely immunocompromised criteria, contact [facility] for clearance. -- Update Sx improvement 08/28 Negative antigen test 08/28, 09/0208/12/2024 08/13/202409/02 2:14 PM EST documented as of this encounter Care Teams Plug Maker Relationship Specialty Start Date End Date Torsten Hernandez MD PCP - General Internal Medicine 06/18/17 03/06/21 Haris Jo MD [address] [place] [address] [email or web address] PCP - General Internal Medicine 03/07/21 03/08/24 Talya Webber MD [address] [place] [address] PCP - General Family Medicine 03/09/24 Jovany Dow MD [address] [place] [address] Carson@[facility] Primary Oncologist Oncology 06/19/17 Socrates Rose MD [address] [place] [address] Palmira@[email or web address] Referring Physician Internal Medicine 06/21/17 Saira Roger RN [address] [place] [address] Abdias@[facility] Primary Infusion Nurse 07/02/17 11/26/17 Sara Rizvi RN [address] [place] [address] Yvette@[facility] Registered Nurse Flight Reservations Manager 07/15/17 Dinorah Henson [address] [place], [place] Olya@[facility] .[facility] Roving Inspector 10/28/17 Nita Godfrey RN [address] [place] [address] LETI@[facility] Primary Infusion Nurse 11/27/17 04/16/24 Lori Scott, [address] [address] Gold@[facility] Spiral Binder Oncology 08/13/17 Demetrice Horvath, SACHIN [address] [place] [address] Romi@[facility] Primary Infusion Nurse 04/17/24 Joyce Haywood RN [address] [place] [address] EDYTA@[facility] Associate Infusion Nurse 05/18/24 Gabriela Rob RN [address] [place] [address] DENVER@[facility] Associate Infusion Nurse 06/29/24 Alexandra Horowitz MD [address] [place] [address] Neurology 03/08/25 documented as of this encounter Additional Source Comments The information contained in this document represents components of the legal health record. It is not the complete legal health record.[facility]
--- OUTSIDE RECORDS SUMMARY | 2025-07-09 14:14 | XMS_ITS | Encounter Summary ---
Author Organization [facility] Address [address] [facility] [address] [place] [address] Phone Care Team Providers Care Diamond Saw Operator Name Role Phone Jovany Dow MD Unavailable Socrates Rose MD Unavailable [phone] Sara Rizvi RN Unavailable [phone] Dinorah Henson Unavailable Dinorah_[email or web address] [email or web address] Nita Godfrey RN Unavailable JAMES [email or web address] Lori Amador [facility] Unavailable [phone] Talya Webber MD Primary Care Pr ovider Demetrice Horvath RN Unavailable Romi @[email or web address] Joyce Drummond RN Unavailable JAIME [email or web address] Gabriela Nassar RN Unavailable LOWELL [email or web address] Alexandra Carranza MD Unavailable [phone] Reason for Visit * Reason Comments Med Change Request Encounter Details Date Type Department Care Team (Late st Contact Info) Description 04/04/2024 [facility] Center for Lymphoma, Division of Hematologic Oncology, [facility] [address] [place] [address], 7th [place] [address] Jovany Dow MD [address] [place] [phone] [email or web address] Med Change Request Social History Tobacco Use Types Packs/Day [...] 2:00 PM EST Blood Draw Laboratory Services, [address] 2nd [place] [address] Jovany Dow MD [address] [place] [phone] [email or web address] 09/20/2025 3:00 PM EST Office Visit Center for Lymphoma, Division of Hematologic Oncology, [address], [address] [place] [address] Jovany Dow MD [address] [place] [phone] [email or web address] documented as of this encounter Visit Diagnoses Diagnosis 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 -- Update Sx improvement 08/28 Negative antigen test 08/28, 09/0208/12/2024 08/13/202409/02 2:14 PM EST documented as of this encounter Care Teams Diamond Saw Operator Relationship Specialty Start Date End Date Talya Webber MD [address] [place] [address] PCP - General Family Medicine 03/09/24 Jovany Dow MD [address] [place] [address] [email or web address] Primary Oncologist Oncology 06/19/17 Socrates Rose MD [address] [place] [address] [email or web address] Referring Physician Internal Medicine 06/21/17 Sara Rizvi RN [address] [place] [address] [email or web address] Registered Nurse Toll Patrolman 07/15/17 Dinorah Henson [address] [place] [address] [email or web address] Sign Hanger 10/28/17 Nita Godfrey, SACHIN [address] [place] [address] [email or web address] Primary Infusion Nurse 11/27/17 04/16/24 Lori Scott, [address] [email or web address] Certified Pharmacy Technician Oncology 08/13/17 Demetrice Horvath, SACHIN [address] [place] [address] Romi@[email or web address] Primary Infusion Nurse 04/17/24 Joyce Haywood, SACHIN [address] [place] [address] [email or web address] Associate Infusion Nurse 05/18/24 Gabriela Rob, SACHIN [address] [place] [address] [email or web address] Associate Infusion Nurse 06/29/24 Alexandra Horowitz MD [address] [place] [address] Neurology 03/08/25 documented as of this encounter Additional Source Comments The information contained in this document represents components of the legal health record. It is not the complete legal health record.[facility]
--- OUTSIDE RECORDS SUMMARY | 2025-07-09 14:14 | XMS_ITS ---
Author Name [facility] Organization Unknown Care Team Organization Name Specialty Phone Email Start Date End Da te [facility] ACO 05/26/2025 [facility] DWAYNE CHAVIS Primary Care [email or web address] 09/18/2023 4 [facility] Jacqueline Birch Primary Care 12/12/202205/07 4 [facility] Porsha Lindsey Primary Care 08/14/202205/07 4
--- OUTSIDE RECORDS SUMMARY | 2025-07-09 14:14 | XMS_ITS ---
Author Organization [facility] Address [address] [facility] [address] [place] [address] Phone Care Team Providers Care Tactical Intelligence Officer Name Role Phone Jovany Dow MD Unavailable Socrates Rose MD Unavailable [phone] Sara Rizvi RN Unavailable [phone] Dinorah Henson Unavailable Silke [email or web address] .[facility] Lori Scott CRAPS MANAGER Unavailable [phone] Talya Webber MD Primary Care Pr ovider Demetrice Horvath RN Unavailable Romi @[email or web address] Joyce Drummond RN Unavailable JAIME [email or web address] Gabriela Nassar RN Unavailable LOWELL [email or web address] Alexandra Carranza MD Unavailable [phone] Active Problems Problem Noted Date Diagnosed Date Hypercalcemia 07/04/2017 Assessment & Plan (07/06/2017 9:00 AM EDT): Patient with hypercalcemia prior to admission to 11.1 and on day of admission. She received 2L of IVF in clinic with improvement to her cCA. Ca remains within normal limits. Pancytopenia 07/04/2017 Assessment & Plan (09/10/2017 1:42 PM EST): ACTIVE Anemia and thrombocytopenia secondary to underlying disease/prior chemotherapy. - support with transfusions if plts <10, hct <24 Assessment & Plan (08/21/2017 8:54 AM EST): ACTIVE Anemia and thrombocytopenia secondary to underlying disease/prior chemotherapy. Supported with transfusions if plts <10, hct <24, none needed this admission Assessment & Plan (08/13/2017 5:09 PM EST): ACTIVE Anemia and thrombocytopenia secondary to underlying disease/prior chemotherapy. Support with transfusions for plts <10, hct <24. - Appears to have received RBCs in clinic for Hct of 20 --- confirm on admission (give 2 units total) Assessment & Plan (07/27/2017 8:46 AM EDT): ACTIVE Anemia and thrombocytopenia secondary to underlying disease/prior chemotherapy. Monitored daily CBC throughout admission and transfused for plts <10, hct <24. The only transfusion patient received was on day of discharge - received 1 unit RBC for Hct 23.8. Assessment & Plan (07/06/2017 9:00 AM EDT): Patient with anemia secondary to her disease and prior therapy. She received a blood transfusion on 06/29 for hct of 23, with appropriate bump. No transfusions needed today. Will be followed for monitoring at local Onc. Diffuse large B-cell lymphom a of lymph nodes of multiple regions 07/03/2017 Assessment & Plan (08/13/2017 7:07 PM EST): ACTIVE Originally diagnosed with follicular lymphoma in Nov [...] Tolerated cycle 1 and 2 without issues. CONFIRM CHEMO PLAN ON ADMISSION If proceeding with chemo: Patient to give Rituxan 375mg/m2 IV on day 3 (given risk for infusion reaction and elevated LDH); receiving etoposide 100mg/m2 IVB on days 1, 2, 3 and carboplatin target AUC=5 IVB on day 2; ifosfamide 5000mg/m2 IVCI x24hrs day 2. Mesna for uroprotection on day 1,2,3. Hypersensitivity pre-meds (including combination of Benadryl/Tylenol/Hydrocort) ordered prior to Rituxan, Carboplatin and Etoposide. Primary Oncologist: Dr. Dow; Local Oncologist: Dr. Rose -- IVF with MESNA for uroprotection while infusing ifosfamide. Continue to monitor UOP (goal of at least 150 cc/hr or more) and Cr daily. -- Anti-nausea meds: Zofran, Dex, and Emend per TP w/Zofran, Reglan, Ativan PRN -- Continue prophylactic allopurinol -- Check UA days 1-3 prior to infusion to ensure less than 11 RBC -- Schedule for Neulasta with twice weekly labs starting at Dr. Rose's, office Assessment & Plan (07/27/2017 8:43 AM EDT): ACTIVE Originally diagnosed with follicular lymphoma in Nov 2016 after presenting with bulky mesenteric/retroperitoneal measses. She was treated with R-Janelle x4 cycles, unfortuently with disease progression. 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 She received RCHOP x6 cycles, through May 2017 with persistent disease (mixed response). Now admitted for cycle 2 of RICE salvage chemotherapy. Tolerated Cycle 1 without issues. Patient received rituxan 375mg/m2 IV on Day 3 (given risk for infusion reaction and elevated LDH); etoposide 100mg/m2 IVB on days 1, 2, 3 and carboplatin target AUC=5 IVB on day 2; Ifosfamide 5000mg/m2 IVCI x24hrs day 2. Mesna for uroprotection on days 1,2,3. UOP monitored and maintained at 150cc/h or greater. Creatinine remained stable. UA monitored with Ifos to ensure less than 11 RBC. Hypersensitivity pre-meds (including combination of Benadryl/Tylenol/Hydrocort) ordered prior to Rituxan, Carboplatin and Etoposide. Received antiemetics with Zofran, Dex, and Emend per the treatment plan with Reglan and Ativan PRN. She continued on prophylactic allopurinol. She is scheduled for Neulasta on 07/29 and twice weekly labs beginning 08/[address] Rose. She will return to [facility] for post-cycle PET CT on 08/13/2017. Primary Oncologist: Dr. Dow; Local Oncologist: Dr. Rose Assessment & Plan (07/06/2017 8:59 AM EDT): Originally diagnosed with follicular lymphoma in Nov 2016 (presented with bulky mesenteric/retroperitoneal masses). Treated with R-Janelle x 4 cycles, unfortunately with progression. Repeat biopsy on February 08, 2017 showed DLBCL arising from follicular lymphoma. Received 6 cycles of RCHOP through May 2017, with persistent disease (mixed response). Now admitted for cycle 1 of RICE salvage chemotherapy. Hepatitis serologies checked prior to admission and are negative. Patient to receive rituxan on Day 3 (given risk for infusion rxn and elevated LDH); receiving etoposide 100mg/m2 IVB on days 1, 2, 3 and carboplatin target AUC=6 IVB on day 2; Ifosfamide 5000mg/m2 IVCI x24hrs day 2;. Mesna for uroprotection with ifosfamide. Hypersensitivity pre-meds (including combination of Benadryl/Tylenol/Hydrocort) ordered prior to Rituxan, Carboplatin and Etoposide. UA prior to ifos was negative for RBCs. TLS labs were checked BID but now daily with no evidence of TLS other than elevated LDH. Primary Onc: Dr. Jovany Dow - daily TLS Labs monitored - continue allopurinol for TLS prophylaxis and at discharge - IV fluid per treatment plan - IVF with MESNA for uroprotection while infusing ifosfamide. Monitor UOP (goal of at least 150 cc/hr or more) and Cr daily - antiemetics: zofran, emend, decadron and prn ativan/compazine and reglan per treatment plan - No Antibiotic prophylaxis at discharge, confirmed with Dr. Dow - patient is scheduled for Neulasta at Dr. Rose's office Sunday 07/08 at 9AM and blood work with Dr. Rose 07/11, 07/15 and 07/[address] Dow and for next cycle on 07/24 Asthma 07/03/2017 Assessment & Plan (09/10/2017 2:10 PM EST): SECONDARY Home regimen consisted of albuterol PRN, flovent 1 puff BID and loratadine 10mg daily, continue on admission. Assessment & Plan (08/21/2017 8:54 AM EST): SECONDARY Home regimen consisted of albuterol PRN, flovent 1 puff BID and loratadine 10mg daily, continue on discharge Assessment & Plan (08/13/2017 5:06 PM EST): SECONDARY Home regimen consists of albuterol PRN, flovent 1 puff BID and loratadine 10mg daily, continued throughout admission without any active issues. Assessment & Plan (07/27/2017 8:47 AM EDT): SECONDARY Home regimen consists of albuterol PRN, flovent 1 puff BID and loratadine 10mg daily, continued throughout admission without any active issues. Assessment & Plan (07/06/2017 8:59 AM EDT): Home regimen consists of albuterol PRN, flovent 1 puff BID, and loratadine 10mg daily. Continued on admission, no current issues Hypertension 07/03/2017 Assessment & Plan (09/10/2017 1:43 PM EST): SECONDARY Home regimen consists of amlodipine 10mg daily, continue on admission. Assessment & Plan (08/21/2017 8:54 AM EST): SECONDARY Home regimen consists of amlodipine 10mg daily, continue on discharge Assessment & Plan (08/13/2017 5:06 PM EST): SECONDARY Home regimen consists of amlodipine 10mg daily, continued at admission. Assessment & Plan (07/27/2017 8:47 AM EDT): SECONDARY Home regimen consists of amlodipine 10mg daily, continued throughout admission. Remained normotensive throughout admission. Assessment & Plan (07/06/2017 8:59 AM EDT): Home regimen of amlodipine 10mg daily continued on admission. Patient is normotensive DLBCL (diffuse large B cell lymphoma) 07/03/2017 Assessment & Plan (09/11/2017 3:05 PM EST): ACTIVE Originally diadnosed with follicular lymphoma from abdominal core bx in November 2016 after presenting with abdominal distention. Completed 4 cycles of R-Janelle but unfortunately end of treatment scans showed progressing disease. Underwent retroperitoneal core bx in February 2017 positive for germinal center DLBCL, Ki67 = 80%, BCL2+, BCL6+, MYC negative. Completed 6 cycles of RCHOP through May 2017. End of treatment scans showed persistent disease, re-biopsied and confirmed. Completed 2 cycles of RICE through July with partial response. Patient now admitted for cycle 2 of R-DHAC. Patient to receive Dex 40mg PO Days 1-4, Rituxan 375mg/m2 D1, Carboplatin AUC target = 5 D1 and Cytarabine 2 gm/m2 q12h D2. Antiemetics with Zofran, Dex and Emend per TP. Primary Oncologist: Jovany Dow MD ; Local Oncologist: Dr. Rose - Will need to complete last 2 days of Dexamethasone at home, confirm if Dr. Dow sent Rx to pharmacy - Neulasta at Dr. Rose s office on 09/13/17 at 10:30 am. She can also come at her convenience for blood work on 09/16, 09/19, 09/23, and 09/[address] Rose s office. - Will use ppx Levofloxacin on days 7 - 14, will need to send Rx - Cerebellar function to be monitored daily - Consider PPI while on high dose steroids Assessment & Plan (08/21/2017 8:53 AM EST): ACTIVE Originally diadnosed with follicular lymphoma from abdominal core bx in November 2016 after presenting with abdominal distention. Completed 4 cycles of R-Janelle but unfortunately end of treatment scans showed progressing disease. Underwent retroperitoneal core bx in February 2017 positive for germinal center DLBCL, Ki67 = 80%, BCL2+, BCL6+, MYC negative. Completed 6 cycles of RCHOP through May 2017. End of treatment scans showed persistent disease, re-biopsied and confirmed. Completed 2 cycles of RICE through July with partial response. Patient presented for cycle one of [facility]. Patient received Dex 40mg PO Days 1-4, Rituxan 375mg/m2 D1, Carboplatin AUC target = 5 D1 and Cytarabine 2 gm/m2 q12h D2. Antiemetics with Zofran, Dex and Emend per TP with ativan made available prn. Will continue ppx allopurinol on discharge until WBC < 1. Will complete last 2 days of Dexamethasone on 08/22 and 08/23. Will have neulasta injection with Dr. Rose on 08/23.Will use ppx Levofloxacin on days 7 - 14 of chemotherapy (08/26 starting). Primary Oncologist: Jovany Dow MD ; Local Oncologist: Dr. Rose Current Treatment and Therapy Plans No current plan information found. Past Treatment and Therapy Plans TREATMENT PLAN Plan Name Start Date Discontinue Date Treatment Medications Discontinue Reason Plan Provider Cycles Rituximab (IV/SC) /Gemcitabine /Oxaliplatin 04/17/20 24 03/08/2025 gemcitabine (GEMZAR) IVPBoxaliplatin (ELOXATIN) IVPBriTUXimab (RITUXAN) IVPB in NS 1 mg/mLriTUXimab (RITUXAN) IVPB 250 mL (250 mg - 1000 mg) (QS Base) a. Therapy Complete Jovany Dow MD 6 of 6 cycles started TP 976 IEC [facility] CYCLOPHOSPHA MIDE/FLUDARA BINE 11/28/19 18 08/01/2020 cycloPHOSphamide (CYTOXAN) infusion 250 mL (powder vial)fludarabine (FLUDARA) IVPB {solution vial} a. Therapy Complete Jovany Dow MD 1 of 1 cycle started [id number] IMAB/CARBOPL ATIN/DEXAMET HASONE/CYTAR ABINE 017 11/19/2017 CARBOplatin (PARAPLATIN) IVPB (by AUC) 270 mLcytarabine (KARLA-C) IVPB {100 mg/mL liquid vial}riTUXimab (RITUXAN) IVPB 250 mL (250 mg - 1000 mg) (QS Base) a. Therapy Complete Jovany Dow MD 2 of 2 cycles started IP R-ICE WITH IVCI IFOS- RITUXIMAB/IF OSFAMIDE/CAR BOPLATIN/ETO POSIDE 07/03/20 17 08/20/2017 CARBOplatin (PARAPLATIN) IVPB (by AUC) 270 mLetoposide (VEPESID, TOPOSAR) infusion (500 mL)ifosfamide/mesna (IFEX/MESNEX) infusionriTUXimab (RITUXAN) IVPB 250 mL (250 mg - 1000 mg) (QS Base) a. Therapy Complete Jovany Dow MD 2 of 2 cycles started IP R-ICE WITH IVCI IFOS- RITUXIMAB/IF OSFAMIDE/CAR BOPLATIN/ETO POSIDE 07/03/20 17 07/03/2017 CARBOplatin (PARAPLATIN) IVPB (by AUC) 270 mLetoposide (VEPESID, TOPOSAR)ifosfamide/ mesna (IFEX/MESNEX) infusionriTUXimab m. Entered in error Jovany Dow MD Treatment not started TREATMENT PLAN-SUPPLEMENTAL Plan Name Start Date Discontinue Date Treatment Medications Discontinue Reason Plan Provider Cycles TP 976 IEC [facility] YESCARTA 12/02/2017 08/01/2020 axicabtagene ciloleucel (YESCARTA) a. Therapy Complete Jovany Dow MD 1 of 1 cycle started Resolved Problems Problem Noted Date Diagnosed Date Resolved Date Fever 12/23/2017 12/27/2017
--- OUTSIDE RECORDS SUMMARY | 2025-07-09 14:14 | XMS_ITS | Encounter Summary ---
Author Organization [facility] Address [address] [facility] [address] [place] [address] Phone Care Team Providers Care Body Recall Instructor Name Role Phone Torsten Hernandez MD Primary Care Provider U Jovany Davila MD Unavailable Socrates Rose MD Unavailable [phone] Saira Roger RN Unavailable [phone] Sara Rizvi RN Unavailable [phone] Dinorah Henson Unavailable Silke [email or web address]. [facility] Nita Godfrey RN Unavailable JAMES [email or web address] U Lori Scott [facility] Unavailable [phone] Haris Jo MD Primary Care Provider [phone] Talya Webber MD Primary Care Pr ovider Demetrice Horvath RN Unavailable Romi @[email or web address] Joyce Haywood RN Unavailable JAIME [email or web address].[facility] Gabriela Rob RN Unavailable LOWELL [email or web address].[facility] Alexandra Horowitz MD Unavailable [phone] Encounter Details Date Type Department Care Team (Late st Contact Info) Description 06/24/2017 Procedure [facility] [address] [place] [address] Social History Tobacco Use Types Packs/Day Years [...] 2:00 PM EST Blood Draw Laboratory Services, [address], [address]nd [place] [address] Jovany Dow MD [address] [place] [phone] [email or web address] 09/20/2025 3:00 PM EST Office Visit Center for Lymphoma, Division of Hematologic Oncology, [address] [place] [address] Jovany Dow MD [address] [place] [phone] Carson@[facility] documented as of this encounter Visit Diagnoses Not on filedocumented in this encounter Additional Health Concerns Infection Onset Date Last Indicated Resolved Time COVID-19 Comment:Meets severely immunocompromised criteria, contact [facility] IC for clearance. -- Update Sx improvement 08/28 Negative antigen test 08/28, 09/0208/12/2024 08/13/202409/02 2:14 PM EST documented as of this encounter Care Teams Body Recall Instructor Relationship Specialty Start Date End Date Torsten Hernandez MD PCP - General Internal Medicine 06/18/17 03/06/21 Haris Jo MD [address] [place] [address] [email or web address] PCP - General Internal Medicine 03/07/21 03/08/24 Talya Webber MD [address] [place] [phone] PCP - General Family Medicine 03/09/24 Jovany Dow MD [address] [place] [phone] [email or web address] Primary Oncologist Oncology 06/19/17 Socrates Rose MD [address] [place] [phone] [email or web address] Referring Physician Internal Medicine 06/21/17 Saira Roger RN [address] [place] [phone] [email or web address] Primary Infusion Nurse 07/02/17 11/26/17 Sara Rizvi RN [address] [place] [phone] [email or web address] Registered Nurse Coal Equipment Operator 07/15/17 Dinorah Henson [address] [place], [place] [email or web address] Corporate Safety Coordinator 10/28/17 Nita Godfrey RN [address] [place] [address] [email or web address] Primary Infusion Nurse 11/27/17 04/16/24 Lori Scott, [address] [address] [email or web address] Continuous Mining Machine Coal Miner Oncology 08/13/17 Demetrice Horvath, SACHIN [address] [place] [phone] [email or web address] Primary Infusion Nurse 04/17/24 Joyce Haywood RN [address] [place] [phone] EDYTA@[email or web address] Associate Infusion Nurse 05/18/24 Gabriela Rob RN [address] [place] [phone] DENVER@[email or web address] Associate Infusion Nurse 06/29/24 Alexandra Horowitz MD [address] [place] [address] Neurology 03/08/25 documented as of this encounter Additional Source Comments The information contained in this document represents components of the legal health record. It is not the complete legal health record.[facility]
--- OUTSIDE RECORDS SUMMARY | 2025-07-09 14:14 | XMS_ITS | Encounter Summary ---
Author Organization [facility] Address [address] [address] Phone Care Team Providers Care Oil Rigger Name Role Phone Torsten Hernandez MD Primary Care Provider U Jovany Davila MD Unavailable Socrates Rose MD Unavailable [phone] Saira Roger RN Unavailable [phone] aSra Rizvi RN Unavailable [phone] Dinorah Henson Unavailable Silke [email or web address].[place]. [facility] Nita Godfrey RN Unavailable JAMES LOZANO@[facility].[place].ED U Lori Scott [facility] Unavailable [phone] Haris Jo MD Primary Care Provider [phone] Talya Webber MD Primary Care Pr ovider Demetrice Horvath RN Unavailable Romi @[facility] Joyce Haywood RN Unavailable JAIME Suárez@[facility].[place].[facility] Gabriela Rob RN Unavailable OLWELL AJRAMILLO@[facility].[place].[facility] Alexandra Horowitz MD Unavailable [phone] Encounter Details Date Type Department Care Team (Late st Contact Info) Description 08/07/2017 Documentation Central Registration, [facility] [place] [address], 2nd [place] [address] Vineet Jasso [address] [place] [address] AlemyinaRomero@[facility] Social History Tobacco Use Types Packs/Day Years Used Date Smoking Tobacco: Never Smokeless Tobacco: Never Alcohol Use Standard Drinks/Week Comments Yes 1 (1 standard drink = 0.6 oz pur e alcohol) 1 gals of wine q2 weeks or so Comments Unknown Sex and Gender Information Value [...] Date Author No 07/06/2017 8:21 AM EDT Close, Sa ra D, PA-C documented in this encounter Plan of Treatment Upcoming Encounters Date Type Department Care Team (Late st Contact Info) Description 09/20/2025 2:00 PM EST Blood Draw Laboratory Services, [address], 2nd [place] [address] Jovany Dow MD [address] [place] [address] Carson@[facility] 09/20/2025 3:00 PM EST Office Visit [facility], Division of Hematologic Oncology, [address], 7th [place] [address] Jovany Dow MD [address] [place] [address] Carson@[facility] documented as of this encounter Visit Diagnoses Not on filedocumented in this encounter Additional Health Concerns Infection Onset Date Last Indicated Resolved Time COVID-19 Comment:Meets severely immunocompromised criteria, contact [facility] IC for clearance. -- Update Sx improvement 08/28 Negative antigen test 08/28, 09/0208/12/2024 08/13/202409/02 2:14 PM EST documented as of this encounter Care Teams Oil Rigger Relationship Specialty Start Date End Date Torsten Hernandez MD PCP - General Internal Medicine 06/18/17 03/06/21 Haris Jo MD [address] [place] [address] [email or web address] PCP - General Internal Medicine 03/07/21 03/08/24 Talya Webber MD [address] [place] [address] PCP - General Family Medicine 03/09/24 Jovany Dow MD [address] [place] [address] Carson@[facility] Primary Oncologist Oncology 06/19/17 Socrates Rose MD [address] [place] [address] Palmira@[facility] Referring Physician Internal Medicine 06/21/17 Saira Roger, SACHIN [address] [place] [address] Abdias@[email or web address] Primary Infusion Nurse 07/02/17 11/26/17 Sara Rizvi RN [address] [place] [address] Yvette@[facility] Registered Nurse Barrel Assembler 07/15/17 Dinorah Henson [address] [place] [address] Olya@[facility] Health Education Director 10/28/17 Nita Godfrey RN [address] [place] [address] LETI@[facility] Primary Infusion Nurse 11/27/17 04/16/24 Lori Scott, [address] [address] Gold@[facility] Vending Manager Oncology 08/13/17 Demetrice Horvath, SACHIN [address] [place] [address] Romi@[facility] Primary Infusion Nurse 04/17/24 Joyce Haywood, SACHIN [address] [place] [address] EDYTA@[facility] Associate Infusion Nurse 05/18/24 Gabriela Rob, SACHIN [address] [place] [address] DENVER@[facility] Associate Infusion Nurse 06/29/24 Alexandra Horowitz MD [address] [place] [address] Neurology 03/08/25 documented as of this encounter Additional Source Comments The information contained in this document represents components of the legal health record. It is not the complete legal health record.[facility]
--- OUTSIDE RECORDS SUMMARY | 2025-07-09 14:14 | XMS_ITS | Encounter Summary ---
Author Organization [facility] Address [address] [address] Phone Care Team Providers Care Bottom Ironer Name Role Phone Torsten Hernandez MD Primary Care Provider U Jovany Davila MD Unavailable Socrates Rose MD Unavailable [phone] Saira Roger RN Unavailable [phone] Sara Rizvi RN Unavailable [phone] Dinorah Henson Unavailable Silke [email or web address].[email or web address]. [facility] Nita Godfrey RN Unavailable JAMES LOZANO@[facility].[place].ED U Lori Scott [facility] Unavailable [phone] Haris Jo MD Primary Care Provider [phone] Talya Webber MD Primary Care Pr ovider Demetrice Horvath RN Unavailable Romi @[facility].[place].[facility] Joyce Haywood RN Unavailable JAIME Suárez@[facility].[place].[facility] Gabriela Rob RN Unavailable LOWELL JARAMILLO@[facility].[place].[facility] Alexandra Horowitz MD Unavailable [phone] Encounter Details Date Type Department Care Team (Late st Contact Info) Description 06/21/2017 Procedure Pass DF IMG OUTSIDE IMG [address] [place] [address] Social History Tobacco Use Types Packs/Day Years [...] 2:00 PM EST Blood Draw Laboratory Services, [address] [place] [address] Jovany Dow MD [address] [place] [address] Carson@[facility] 09/20/2025 3:00 PM EST Office Visit [facility] for Lymphoma, Division of Hematologic Oncology, [address], 7th [place] [address] Jovany Dow MD [address] [place] [address] Carson@[facility] documented as of this encounter Visit Diagnoses Not on filedocumented in this encounter Additional Health Concerns Infection Onset Date Last Indicated Resolved Time COVID-19 Comment:Meets severely immunocompromised criteria, contact [facility] IC for clearance. -- Update Sx improvement 08/28 Negative antigen test 08/28, 09/0208/12/2024 08/13/202409/02 2:14 PM EST documented as of this encounter Care Teams Bottom Ironer Relationship Specialty Start Date End Date Torsten Hernandez MD PCP - General Internal Medicine 06/18/17 03/06/21 Haris Jo MD [address] [place] [address] [email or web address] PCP - General Internal Medicine 03/07/21 03/08/24 Talya Webber MD [address] [place] [address] PCP - General Family Medicine 03/09/24 Jovany Dow MD [address] [place] [address] Carson@[facility] Primary Oncologist Oncology 06/19/17 Socrates Rose MD [address] [place] [address] Palmira@[facility] Referring Physician Internal Medicine 06/21/17 Siara Roger RN [address] [place] [address] Abdias@[facility]. [facility] Primary Infusion Nurse 07/02/17 11/26/17 Sara Rizvi RN [address] [place] [address] Yvette@[facility] Registered Nurse Check Airman 07/15/17 Dinorah Henson [address] [place], [place] Olya@[facility] .[facility] Manager Services 10/28/17 Nita Godfrey RN [address] [place], [place] LETI@[email or web address] Primary Infusion Nurse 11/27/17 04/16/24 Lori Scott, [address] [address] Gold@[facility] Shrimp Pond Laborer Oncology 08/13/17 Demetrice Horvath, SACHIN [address] [place] [address] Romi@[facility] Primary Infusion Nurse 04/17/24 Joyce Haywood RN [address] [place] [address] EDYTA@[facility] Associate Infusion Nurse 05/18/24 Gabriela Rob RN [address] [place] [address] DENVER@[facility] Associate Infusion Nurse 06/29/24 Alexandra Horowitz MD [address] [place] [address] Neurology 03/08/25 documented as of this encounter Additional Source Comments The information contained in this document represents components of the legal health record. It is not the complete legal health record.[facility]
--- OUTSIDE RECORDS SUMMARY | 2025-07-09 14:14 | XMS_ITS | Encounter Summary ---
Author Organization [facility] Address 399 [facility] [address] [place] [address] Phone Care Team Providers Care Base Loader Name Role Phone Torsten Hernandez MD Primary Care Provider U Jovany Davila MD Unavailable Socrates Rose MD Unavailable [phone] Sara Rizvi RN Unavailable [phone] Dinorah Henson Unavailable Silke mckeon@[facility].[place]. [facility] Nita Godfrey RN Unavailable JAMES LOZANO@[facility].[place].ED U Lori Scott [facility] Unavailable [phone] Haris Jo MD Primary Care Provider [phone] Talya Webber MD Primary Care Pr ovider Demetrice Horvath RN Unavailable Romi @[facility].[place].[facility] Joyce Haywood RN Unavailable JAIME Suárez@[facility].[place].[facility] Gabriela Rob RN Unavailable LOWELL JARAMILLO@[facility].[place].[facility] Alexandra Horowitz MD Unavailable [phone] Encounter Details Date Type Department Care Team (Late st Contact Info) Description 08/01/2020 Procedure Pass Elayne Lank Imaging Department, [facility] [place] [address] [facility], [address] [place] [address] Social History Tobacco Use Types Packs/Day Years [...] Date Author No 07/06/2017 8:21 AM EDT Lisa Aguayo PA-C documented in this encounter Plan of Treatment Upcoming Encounters Date Type Department Care Team (Late st Contact Info) Description 09/20/2025 2:00 PM EST Blood Draw Laboratory Services, [facility] [address], 2nd [place] [address] Jovany Dow MD [address] [place] [address] Carson@[facility] 09/20/2025 3:00 PM EST Office Visit Center for Lymphoma, Division of Hematologic Oncology, [facility] [place] [address] [place] [address], 7th [place] [address] Jovany Dow MD [address] [place] [phone] Carson@[facility] documented as of this encounter Visit Diagnoses Not on filedocumented in this encounter Additional Health Concerns Infection Onset Date Last Indicated Resolved Time COVID-19 Comment:Meets severely immunocompromised criteria, contact [facility] IC for clearance. -- Update Sx improvement 08/28 Negative antigen test 08/28, 09/0208/12/2024 08/13/202409/02 2:14 PM EST documented as of this encounter Care Teams Base Loader Relationship Specialty Start Date End Date Torsten Hernandez MD PCP - General Internal Medicine 06/18/17 03/06/21 Haris Jo MD [address] [place] [address] [email or web address] .[facility] PCP - General Internal Medicine 03/07/21 03/08/24 Talya Webber MD [address] [place] [address] PCP - General Family Medicine 03/09/24 Jovany Dow MD [address] [place] [address] Carson@[facility] Primary Oncologist Oncology 06/19/17 Socrates Rose MD [address] [place] [address] Palmira@[facility] Referring Physician Internal Medicine 06/21/17 Sara Rizvi RN [address] [place] [address] Yvette@[facility] Registered Nurse Ammonium Nitrate Neutralizer 07/15/17 Dinorah Henson [address] [place], [place] Olya@[facility] Awake Overnight Counselor 10/28/17 Nita Godfrey, SACHIN [address] [place], [place] LETI@[email or web address] Primary Infusion Nurse 11/27/17 04/16/24 Lori Scott, [facility] [address] [place] [address] Gold@[facility] Pest Control Service Representative Oncology 08/13/17 Demetrice Horvath, SACHIN [address] [place] [address] Romi@[facility] Primary Infusion Nurse 04/17/24 Joyce Haywood, SACHIN [address] [place] [address] EDYTA@[facility] Associate Infusion Nurse 05/18/24 Gabriela Rob, SACHIN [address] [place] [address] DENVER@[facility] Associate Infusion Nurse 06/29/24 Alexandra Horowitz MD [address] [place] [address] Neurology 03/08/25 documented as of this encounter Additional Source Comments The information contained in this document represents components of the legal health record. It is not the complete legal health record.[facility]
--- OUTSIDE RECORDS SUMMARY | 2025-07-09 14:14 | XMS_ITS | Encounter Summary ---
Author Organization [facility] Address 399 [facility] [address] [place] [address] Phone Care Team Providers Care Beauty Parlor Cleaner Name Role Phone Torsten Hernandez MD Primary Care Provider U Jovany Davila MD Unavailable Socrates Rose MD Unavailable [phone] Saira Roger RN Unavailable [phone] Sara Rizvi RN Unavailable [phone] Dinorah Henson Unavailable Silke mckeon@[facility].[place]. [facility] Nita Godfrey RN Unavailable JAMES LOZANO@[facility].[place].ED U Lori Scott [facility] Unavailable [phone] Haris Jo MD Primary Care Provider [phone] Talya Webber MD Primary Care Pr ovider Demetrice Horvath RN Unavailable Romi @[facility] Joyce Haywood RN Unavailable JAIME Suárez@[facility].[place].[facility] Gabriela Rob RN Unavailable LOWELL JARAMILLO@[facility].[place].[facility] Alexandra Horowitz MD Unavailable [phone] Encounter Details Date Type Department Care Team (Late st Contact Info) Description 06/24/2017 Procedure Pass [facility] [address] [place] [address] Social History Tobacco Use Types Packs/Day Years [...] 2:00 PM EST Blood Draw Laboratory Services, [address], 2nd [place] [address] Jovany Dow MD [address] [place] [address] Carson@[facility] 09/20/2025 3:00 PM EST Office Visit Center for Lymphoma, Division of Hematologic Oncology, [address], 7th [place] [address] Jovany Dow MD [address] [place] [address] Carson@[facility] documented as of this encounter Visit Diagnoses Not on filedocumented in this encounter Additional Health Concerns Infection Onset Date Last Indicated Resolved Time COVID-19 Comment:Meets severely immunocompromised criteria, contact [facility] IC for clearance. -- Update Sx improvement 08/28 Negative antigen test 08/28, 09/0208/12/2024 08/13/202409/02 2:14 PM EST documented as of this encounter Care Teams Beauty Parlor Cleaner Relationship Specialty Start Date End Date Torsten Hernandez MD PCP - General Internal Medicine 06/18/17 03/06/21 Haris Jo MD [address] [place] [address] [email or web address] PCP - General Internal Medicine 03/07/21 03/08/24 Talya Webber MD [address] [place] [address] PCP - General Family Medicine 03/09/24 Jovany Dow MD [address] [place] [address] Carson@[facility] Primary Oncologist Oncology 06/19/17 Socrates Rose MD [address] [place] [address] Palmira@[email or web address] Referring Physician Internal Medicine 06/21/17 Saira Roger RN [address] [place] [address] Abdias@[facility] Primary Infusion Nurse 07/02/17 11/26/17 Sara Rizvi RN [address] [place] [address] Yvette@[facility] Registered Nurse Furnace Process Supervisor 07/15/17 Dinorah Henson [address] [place], [place] Olya@[facility] .[facility] Residency Program Coordinator 10/28/17 Nita Godfrey RN [address] [place] [address] LETI@[facility] Primary Infusion Nurse 11/27/17 04/16/24 Lori Scott, [address] [address] Gold@[facility] Supervisor Process Testing Oncology 08/13/17 Demetrice Horvath, SACHIN [address] [place] [address] Romi@[facility] Primary Infusion Nurse 04/17/24 Joyce Haywood RN [address] [place] [address] EDYTA@[facility] Associate Infusion Nurse 05/18/24 Gabriela Rob RN [address] [place] [address] DENVER@[facility] Associate Infusion Nurse 06/29/24 Alexandra Horowitz MD [address] [place] [address] Neurology 03/08/25 documented as of this encounter Additional Source Comments The information contained in this document represents components of the legal health record. It is not the complete legal health record.[facility]
--- OUTSIDE RECORDS SUMMARY | 2025-07-09 14:14 | XMS_ITS | Encounter Summary ---
Author Organization [facility] Address 399 [facility] [address] [place] [address] Phone Care Team Providers Care Huc Ob Name Role Phone Torsten Hernandez MD Primary Care Provider U Jovany Davila MD Unavailable Socrates Rose MD Unavailable [phone] Sara Rizvi RN Unavailable [phone] Dinorah Henson Unavailable Silke mckeon@[facility].[place]. [facility] Nita Godfrey RN Unavailable JAMES LOZANO@[facility].[place].ED U Lori Scott [facility] Unavailable [phone] Haris Jo MD Primary Care Provider [phone] Talya Webber MD Primary Care Pr ovider Demetrice Horvath RN Unavailable Romi @[facility].[place].[facility] Joyce Haywood RN Unavailable JAIME Suárez@[facility].[place].[facility] Gabriela Rob RN Unavailable LOWELL JARAMILLO@[facility].[place].[facility] Alexandra Horowitz MD Unavailable [phone] Encounter Details Date Type Department Care Team (Late st Contact Info) Description 12/11/2017 Procedure Pass [facility] [address] [place] [address] Social History Tobacco Use Types Packs/Day Years [...] 2:00 PM EST Blood Draw Laboratory Services, [facility] [place] [address] [place] [address], 2nd [place] [address] Jovany Dow MD [address] [place] [address] Carson@[facility] 09/20/2025 3:00 PM EST Office Visit [facility] for Lymphoma, Division of Hematologic Oncology, [facility] [place] [address] [place] [address], 7th [place] [address] Jovany Dow MD [address] [place], [place] [phone] Carson@[facility] documented as of this encounter Visit Diagnoses Not on filedocumented in this encounter Additional Health Concerns Infection Onset Date Last Indicated Resolved Time COVID-19 Comment:Meets severely immunocompromised criteria, contact [facility] IC for clearance. -- Update Sx improvement 08/28 Negative antigen test 08/28, 09/0208/12/2024 08/13/202409/02 2:14 PM EST documented as of this encounter Care Teams Huc Ob Relationship Specialty Start Date End Date Torsten Hernandez MD PCP - General Internal Medicine 06/18/17 03/06/21 Haris Jo MD [address] [place] [address] [email or web address] .[facility] PCP - General Internal Medicine 03/07/21 03/08/24 Talya Webber MD [address] [place] [address] PCP - General Family Medicine 03/09/24 Jovany Dow MD [address] [place] [address] Carson@[facility] Primary Oncologist Oncology 06/19/17 Socrates Rose MD [address] [place] [address] [email or web address] Referring Physician Internal Medicine 06/21/17 Sara Rizvi RN [address] [place] [address] Yvette@[facility] Registered Nurse Weaver [place] 07/15/17 Dinorah Henson [address] [place], [place] Olya@[facility] Sole Rougher 10/28/17 Nita Godfrey, SACHIN [address] [place], [place] LETI@[facility] Primary Infusion Nurse 11/27/17 04/16/24 Lori Scott, [facility] [address] [place] [address] Gold@[email or web address] Bail Attacher Oncology 08/13/17 Demetrice Horvath, RN [address] [place] [address] Romi@[facility] Primary Infusion Nurse 04/17/24 Joyce Haywood, SACHIN [address] [place] [address] EDYTA@[facility] Associate Infusion Nurse 05/18/24 Gabriela Rob, SACHIN [address] [place] [address] DENVER@[facility] Associate Infusion Nurse 06/29/24 Alexandra Horowitz MD [address] [place] [address] Neurology 03/08/25 documented as of this encounter Additional Source Comments The information contained in this document represents components of the legal health record. It is not the complete legal health record.[facility]
--- OUTSIDE RECORDS SUMMARY | 2025-07-09 14:14 | XMS_ITS | Encounter Summary ---
Author Organization [facility] Address [address] [facility] [address] [place] [address] Phone Care Team Providers Care Cloth Winder Name Role Phone Jovany Dow MD Unavailable Socrates Rose MD Unavailable [phone] Sara Rizvi RN Unavailable [phone] Dinorah Henson Unavailable [email or web address]_[email or web address] [email or web address] Nita Godfrey RN Unavailable JAMES [email or web address] Lori Amador [facility] Unavailable [phone] Talya Webber MD Primary Care Pr ovider Demetrice Horvath RN Unavailable Romi [email or web address] Joyce Haywood RN Unavailable [email or web address] Gabriela Nassar RN Unavailable [email or web address] Alexandra Carranza MD Unavailable [phone] Encounter Details Date Type Department Care Team (Late st Contact Info) Description 03/27/2024 Procedure Pass [facility]'s Pest Controller Assistant [place] [address] [place] [address] Social History Tobacco Use Types Packs/Day Years [...] 2:00 PM EST Blood Draw Laboratory Services, [address], 2nd [place] [address] Jovany Dow MD [address] [place] [phone] [email or web address] 09/20/2025 3:00 PM EST Office Visit [facility], Division of Hematologic Oncology, [address], [address] [place] [address] Jovany Dow MD [address] [place] [address] [email or web address] documented as of this encounter Visit Diagnoses Not on filedocumented in this encounter Additional Health Concerns Infection Onset Date Last Indicated Resolved Time COVID-19 Comment:Meets severely immunocompromised criteria, contact [facility] IC for clearance. -- Update Sx improvement 08/28 Negative antigen test 08/28, 09/0208/12/2024 08/13/202409/02 2:14 PM EST documented as of this encounter Care Teams Cloth Winder Relationship Specialty Start Date End Date Talya Webber MD [address] [place] [address] PCP - General Family Medicine 03/09/24 Jovany Dow MD [address] [place] [address] [email or web address] Primary Oncologist Oncology 06/19/17 Socrates Rose MD [address] [place] [address] [email or web address] m Referring Physician Internal Medicine 06/21/17 Sara Rizvi, RN [address] [place] [address] [email or web address] Registered Nurse Precipitator 07/15/17 Dinorah Henson [address] [place], [place] [email or web address] Job Development Specialist 10/28/17 Nita Godfrey, SACHIN [address] [place], [place] [email or web address] Primary Infusion Nurse 11/27/17 04/16/24 Lori Scott, [facility] [address] [place] [address] [email or web address] Pst Supervisor Oncology 08/13/17 Demetrice Horvath, RN [address] [place] [address] [email or web address] Primary Infusion Nurse 04/17/24 Joyce Haywood, SACHIN [address] [place] [address] [email or web address] Associate Infusion Nurse 05/18/24 Gabriela Rob, RN [address] [place] [address] [email or web address] Associate Infusion Nurse 06/29/24 Alexandra Horowitz MD [address] [place] [address] Neurology 03/08/25 documented as of this encounter Additional Source Comments The information contained in this document represents components of the legal health record. It is not the complete legal health record.[facility]
--- OUTSIDE RECORDS SUMMARY | 2025-07-09 14:14 | XMS_ITS | Encounter Summary ---
Author Organization [facility] Address [address] [facility] [address] [place] [address] Phone Care Team Providers Care Pantograph Ii Engraver Name Role Phone Torsten Hernandez MD Primary Care Provider U Jovany Davila MD Unavailable Socrates Rose MD Unavailable [phone] Sara Rizvi RN Unavailable [phone] Dinorah Henson Unavailable Silke [email or web address] Nita Godfrey RN Unavailable JAMES [email or web address] U Lori Scott [facility] Unavailable [phone] Haris Jo MD Primary Care Provider [phone] Talya Webber MD Primary Care Pr ovider Demetrice Horvath RN Unavailable Romi [email or web address] Joyce Haywood RN Unavailable JAIME [email or web address] Gabriela Rob RN Unavailable LOWELL [email or web address] Alexandra Horowitz MD Unavailable [phone] Encounter Details Date Type Department Care Team (Late st Contact Info) Description 12/15/2017 Procedure Pass [facility] [address] [place] [address] Social History Tobacco Use Types Packs/Day Years [...] 2:00 PM EST Blood Draw Laboratory Services, [facility] [address] [place] [address], 2nd [place] [address] Jovany Dow MD [address] [place] [address] [email or web address] 09/20/2025 3:00 PM EST Office Visit [facility], Division of Hematologic Oncology, [facility] [address] [place] [address], 7th [place] [address] Jovany Dow MD [address] [place], [place] [phone] [email or web address] documented as of this encounter Visit Diagnoses Not on filedocumented in this encounter Additional Health Concerns Infection Onset Date Last Indicated Resolved Time COVID-19 Comment:Meets severely immunocompromised criteria, contact [facility] IC for clearance. -- Update Sx improvement 08/28 Negative antigen test 08/28, 09/0208/12/2024 08/13/202409/02 2:14 PM EST documented as of this encounter Care Teams Pantograph Ii Engraver Relationship Specialty Start Date End Date Torsten Hernandez MD PCP - General Internal Medicine 06/18/17 03/06/21 Haris Jo MD [address] [place] [address] [email or web address] PCP - General Internal Medicine 03/07/21 03/08/24 Talya Webber MD [address] [place] [address] PCP - General Family Medicine 03/09/24 Jovany Dow MD [address] [place] [address] Carson@[email or web address] Primary Oncologist Oncology 06/19/17 Socrates Rose MD [address] [place] [address] [email or web address] Referring Physician Internal Medicine 06/21/17 Sara Rizvi RN [address] [place] [address] [email or web address] Registered Nurse Simulation Technician 07/15/17 Dinorah Henson [address] [place], [place] Olya@[email or web address] Preschool Paraprofessional 10/28/17 Nita Godfrey, SACHIN [address] [place], [place] LETI@[email or web address] Primary Infusion Nurse 11/27/17 04/16/24 Lori Scott, [facility] [address] [place] [address] [email or web address] Bread Dough Mixer Oncology 08/13/17 Demetrice Horvath, RN [address] [place] [address] [email or web address] Primary Infusion Nurse 04/17/24 Joyce Haywood, SACHIN [address] [place] [address] [email or web address] Associate Infusion Nurse 05/18/24 Gabriela Rob, SACHIN [address] [place] [address] [email or web address] Associate Infusion Nurse 06/29/24 Alexandra Horowitz MD [address] [place] [address] Neurology 03/08/25 documented as of this encounter Additional Source Comments The information contained in this document represents components of the legal health record. It is not the complete legal health record.[facility]
--- OUTSIDE RECORDS SUMMARY | 2025-07-09 14:14 | XMS_ITS | Clinical Summary ---
Author Organization [facility] Address [address] [place] [address] Phone Care Team Providers Care Football Scout Name Role Phone Talya Webber MD Primary Care Pr ovider Allergies Active Allergy Reactions Criticality Noted Date Comments Adhesive Tape-Silicones Rash Low 11/08/2017 Medications benzoyl peroxide 5 % gel Apply topically daily as needed. Active carbidopa-levodopa (SINEMET) 25-100 mg per tablet Take 0.5 Tablets by mouth 2 times daily. Active multivit-min/folic acid/lutein (CENTRUM SILVER ORAL) Take 1 Tablet by mouth daily. Active clindamycin phosphate 1 % gel, once daily Apply topically 2 times daily. Active famotidine (PEPCID) 20 mg tablet Take 1 Tablet by mouth 2 times daily. Active fluticasone furoate (Arnuity Ellipta) 100 mcg/actuation blister with device inhaler Inhale 1 Puff into the lungs daily. 4 Active gemcitabine HCl (GEMZAR IV) Inject into the vein. As directed Active palonosetron HCl (ALOXI IV) Inject into the vein. As directed Active pegfilgrastim (NEULASTA SUBQ) Inject into the skin. Given after chemo treatment Active rasagiline (AZILECT) 1 mg tablet Take 1 Tablet by mouth daily. 2 Active rituximab (RITUXAN IV) Inject into the vein. As directed Active DEXAMETHASONE ORAL Take 12 mg by mouth. As directed Active albuterol HFA (PROAIR HFA ; PROVENTIL HFA ; VENTOLIN HFA) 90 mcg/actuation inhaler Inhale 2 Puffs into the lungs every 4 hours as needed for Wheezing or Shortness of Breath (EMERGENCY USE ONLY). 3 Active allopurinoL (ZYLOPRIM) 300 mg tablet Take 1 Tablet by mouth daily. Active Xarelto 20 mg tablet TAKE 1 TABLET BY MOUTH EVERY DAY 90 tablet 2 5 Active acyclovir (ZOVIRAX) 400 mg tablet Take 1 tablet (400 mg total) by mouth 2 (two) times a day. 5 Active Synthroid 25 mcg tabletIndications: Other specified hypothyroidism TAKE 1 TABLET BY MOUTH EVERY DAY 90 tablet 1 5 Active amLODIPine (NORVASC) 10 mg tabletIndications: Essential (primary) hypertension TAKE 1 TABLET BY MOUTH EVERY DAY 90 tablet 1 5 Active diclofenac (VOLTAREN) 1 % topical gel APPLY 1 GRAM TOPICALLY 3 (THREE) TIMES A DAY. 100 g 2 5 Active Active Problems Problem Noted Date Diagnosed Date [...] to be anticoagulated with Xarelto with a [id number] score of 4. Reports she is tolerating this well with no bleeding issues. She is aware that she will need to seek emergent medical attention if she experiences any head trauma. Parkinson's disease (CMS/HCC V24, CMS/HCC V28) 0 11/08/2022 Subclinical hypothyroidism 11/08/2022 Endometrial thickening on ultrasound 03/15/2021 Overview (09/28/2024): CT scan done 03/07/2021 at [facility] [place], referred to [facility] at [place]. Thyroid nodule 03/15/2021 Overview (09/28/2024): CT scan done at [facility] [place] on 03/07/21 showed nodule in the right lobe of thyroid. 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 ([facility]/HCC V24, CMS/HCC V28) 07/03/2017 Overview (09/28/2024): Originally diagnosed with [...] Encounters Date Type Department Care Team Description 06/18/2025 Telephone [facility] [address] [facility] [address] [place] [address] Joyce Sanchez NP 05/25/2025 12:30 PM EDT Treatment Outpatient Rehabilitation [address] [phone] Chaz Ang, PT Acute pain of right knee (Primary Dx) 04/30/2025 12:30 PM EDT Treatment Outpatient [facility] - [address] [phone] Jaelyn Gaston, EXECUTOR OF ESTATE Acute pain of right knee (Primary Dx) 04/26/2025 12:00 PM EDT Treatment Outpatient [address] [phone] Jaelyn Gaston, EXECUTOR OF ESTATE Acute pain of right knee (Primary Dx) 04/23/2025 12:30 PM EDT Treatment Outpatient [address] [phone] Lolos, Jaelyn H, EXECUTOR OF ESTATE Acute pain of right knee (Primary Dx) 04/19/2025 12:30 PM EDT Treatment Outpatient Rehabilitation - [address] [phone] Alek Jaelyn H, EXECUTOR OF ESTATE Acute pain of right knee (Primary Dx) 04/16/2025 12:30 PM EDT Treatment Outpatient [facility] - [address] [phone] Chaz Ang M, PT Acute pain of right knee (Primary Dx) from Last 3 Months Immunizations Immunization Administration Dates Next Due Influenza trivalent, 0.5mL [...] EXTRACTION PROCEDURE: HISTORICAL WISDOM TEETH EXTRACTION COLONOSCOPY 2015 PROCEDURE: HISTORICAL COLONOSCOPY; COMMENT: dr aguero advised [...] Non-Hodgkin's lymphoma in ad ult (CMS/HCC V24, [facility]/HCC V28) 07/30/2018 DX:Non-Hodgkin's lymphoma i n adult (HCC); COMMENT: Treated at [facility] [place], Dr. Jovany Dow MD [phone] telephone Essential (primary) hypertension DX:Essential (primary) hypertension Mild intermittent asthma, uncomplicated DX:Mild intermittent asthma, uncomplicated Thyroid nodule DX:Thyroid nodul e; COMMENT: CT scan done at [facility] [place] on 03/07/21 showed nodule in the right lobe of thyroid. Radiology mentions may represent thyroid malignancy or thyroid adenoma. Endometrial thickening on ultrasound DX:Endometrial thickening on ultrasound; COMMENT: CT scan done 03/07/2021 at [facility] [place], referred to [facility] at [place]. History of colonoscopy DX:Histor y of colonoscopy; [...] Father (Age 83) CAD Mother (Age 60) [facility] also had 2 aunts with breast cancer Sister 1 Sister 2 Alive hypertension Son 1 Alive Son 2 Alive Social History Tobacco Use Types Packs/Day Years Used Date Smoking Tobacco: Never Smokeless Tobacco: Never Tobacco Cessation:Counseling Given: Not Answered Alcohol Use Standard Drinks/Week Comments Yes 0 [...] Sign Reading Time Taken Comments Blood Pressure 123/89 02/05/2025 10:40 AM EDT Pulse 74 02/05/2025 10:40 AM EDT Temperature 36.3 C (97.4 F) 02/05/2025 10:40 AM EDT Respiratory Rate 14 03/05/2025 2:09 PM EDT Oxygen Saturation 96% 02/05/2025 10:40 AM EDT Inhaled Oxygen Concentration - - Weight 66.2 kg (146 lb) 03/05/2025 2:09 PM EDT Height 152.4 cm (5') 03/05/2025 2:09 PM EDT Body Mass Index 28.51 03/05/2025 2:09 PM EDT Plan of Treatment Upcoming Encounters Date Type Department Care Team (Late st Contact Info) Description 08/11/2025 9:45 AM EST Office Visit Adult Medicine [address] [phone] Talya Webber MD [address] [place] [address] Health Maintenance Due Date Last Done Comments Pneumococcal Vaccine: 50+ Years (3 of 3 - PCV20 or PCV21) 04/23/2017 03/01/2015, 04/23/2012 Social Influencers of Health Screening 09/12/2022 Medicare Annual Wellness Visit 06/17/2024 06/17/2023 Depression Screening 10/07/2024 COVID-19 Vaccine ( season) 2025 08/08/2023, 07/05/2022, 08/04/2021, Additional history exists Influenza Vaccine (#1) 2025 , 06/17/2023, 07/18/2022, Additional history exists Falls Risk Assessment 06/18/2025 06/18/2024 Hypertension/CHF/CAD Annual BMP Blood Test 03/08/2026 03/08/2025, 12/14/2024, 09/15/2024, Additional history exists Cholesterol Screening (Lipid Panel) 12/18/2028 12/19/2023, 12/15/2017 Osteoporosis Screening (Bone Density Screening) 04/19/2031 04/19/2021, 10/01/2018 DTaP,Tdap,and Td Vaccines (4 - Td or Tdap) 05/08/2032 05/08/2022, 04/23/2012, 04/03/2004 Zoster Vaccines Completed 08/01/2020, 10/2019, 12/01/2019, Additional history exists Colorectal Cancer Screening: Colonoscopy Discontinued 04/06/2021 RSV Immunization Adult Patients Completed 08/22/2023 Hepatitis C Screening Completed 04/17/2024, 024 Breast Cancer Screening Discontinued 12/29/19, 12/22/2024, 12/18/2023 [...] Procedure Name Priority Date/Time Associated Diagnosis Comments MG MAMMO DIGITAL DIAGNOSTIC W VITALY RIGHT Routine 12/28/2024 2:35 PM EDT Abnormal mammogram HM ANNUAL BMP BLOOD TEST Routine 06/29/2024 FALLS RISK ASSESSMENT Routine 06/18/2024 HEPATITIS C SCREENING Routine 04/17/2024 LIPID PANEL Routine 12/19/2023 DXA BONE DENSITY STUDY 1+ SITS AXIAL SKEL Routine 04/19/2021 9:30 AM EDT Disorder of bone, unspecified Disorder of cartilage, unspecified from Last 3 Months or Most Recently Relevant to Health Maintenance Results * MG Mammo Digital Diagnostic w Vitaly Right (12/28/2024 2:35 PM EDT) Anatomical Region Laterality Modality Breast Right Mammography 12/28/2024 2:37 PM EDT Impressions 12/28/2024 3:01 PM EDT Morphologically normal right axillary lymph node lymph node corresponding to the mammographic finding. Benign. Findings and recommendations were conveyed to the patient. BI-RADS CATEGORY: 2 - BENIGN RECOMMENDATION: Return to annual mammography. Return to annual mammography. Return to annual mammography. Return to annual mammography. Mammo Location: [facility], [address] [place] [address], [id number], . -------- FINAL REPORT -------- Dictated By: Bárbara Liang Dictated Date: 12/28/2024 14:37 ET Assigned Physician: Bárbara Liang Reviewed and Electronically Signed By: Bárbara Liang Signed Date: 12/28/2024 15:01 ET Workstation ID: [id number] Transcribed By: Self Edit Transcribed Date: 12/28/2024 14:42 ET Narrative 12/28/2024 3:01 PM EDT CLINICAL: 74 years old, Female, indeterminate rounded morphology mass within the right axilla on screening mammogram of 12/22/2024. This area is adjacent to the patient's port. COMPARISON: Mammograms dating back to 05/04/2019 with most recent of 12/22/2024. FINDINGS: MAMMOGRAPHY TECHNIQUE: Spot compression MLO view of the right breast was obtained digitally with 3-D mammogram (digital breast tomosynthesis). Computer-aided detection was utilized in evaluation of this exam (CAD). Rounded focal asymmetry adjacent to the port is a persistent finding. ). BREAST DENSITY: B - There are scattered areas of fibroglandular density. ULTRASOUND TECHNIQUE: Ultrasound evaluation of the right axilla was performed. There is a 0.6 x 0.5 x 0.7 cm lymph node with prominent fatty hilum behind the port. Procedure Note Bárbara Liang MD - 12/28/2024 [...] mammography. Return to annual mammography. Mammo Location: [facility], [address] [place] [address], [id number], . -------- FINAL REPORT -------- Dictated By: Bárbara Liang Dictated Date: 12/28/2024 14:37 ET Assigned Physician: Bárbara Liang Reviewed and Electronically Signed By: Bárbara Liang Signed Date: 12/28/2024 15:01 ET Workstation ID: [id number] Transcribed By: Self Edit Transcribed Date: 12/28/2024 14:42 ET Talya Webber MD IMG BI PROCEDURE S Final Result * Annual BMP Blood Test (06/29/2024) Pathologist [facility] Annual BMP Blood Test abstracted [facility] Provider HEALTH MAINTENANCE Final Result * Falls Risk Assessment (06/18/2024) [facility] Falls Risk Assessment abstracted Result [facility] Provider HEALTH MAINTENANCE Final Result * Hepatitis C Screening (04/17/2024) [facility] Hepatitis C Screening abstracted Result [facility] Provider HEALTH MAINTENANCE Final Result * (ABNORMAL) Lipid panel (12/19/2023) [facility] LDL/HDL Ratio 6(A) 0 - 4 Triglycerides 159(A) 0 - 150 mg/dL Cholesterol 211(A) 0 - 200 mg/dL HDL 37(A) >=40 mg/dL LDL Cholesterol 143(A) 0 - 100 mg/dL Blood Venous blood specimen / Unknown Result [facility] Provider LAB BLOOD ORDERABLES Kimberly l Result * DXA BONE DENSITY STUDY 1+ SITS AXIAL SKEL (04/19/2021 9:30 AM EDT) Anatomical Region Laterality Modality Bone Densitometr y 02/20/2021 8:51 AM EDT Narrative 04/20/2021 6:27 PM EDT Clinical history: menopausal/postmenopausal disorder Scans of the lumbar spine and hips were performed on a [employer] fan beam bone densitometer. Bone mineral density measurements [...] >20% for major osteoporotic fracture PLEASE NOTE: W.H.O. classification is based on lowest measured density at the spine, femoral neck, or total hip.This classification has prognostic significance when applied to post menopausal women and older men. 1) The World Health Organization defines low BMD as follows: T-score Normal at or > -1 Osteopenia < -1 and > -2.5 Osteoporosis at or < -2.5 without fractures Established osteoporosis < -2.5 with fractures Procedure Note Divine Lockett MD - 09/25/2022 Clinical history: menopausal/postmenopausal disorder Scans of the lumbar spine and hips were performed on a [employer] beam bone densitometer. 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
--- OUTSIDE RECORDS SUMMARY | 2025-07-09 14:14 | XMS_ITS | Clinical Summary ---
Author Organization [facility] Address [address] [address] Phone Care Team Providers Care Steel Fabricating Supervisor Name Role Phone Jovany Dow MD Unavailable Socrates Rose MD Unavailable [phone] Sara Rizvi RN Unavailable [phone] Dinorah Henson Unavailable [email or web address]_[email or web address] [email or web address] Lori Scott GATE CUTTER Unavailable Talya Webber MD Primary Care Pr ovider Demetrice oHrvath RN Unavailable Romi [email or web address] Joyce Drummond RN Unavailable [email or web address] Gabriela Nassar RN Unavailable LOWELL [email or web address] Alexandra Carranza MD Unavailable [phone] Allergies Active Allergy Reactions Criticality Noted Date Comments Adhesive Tape-Silicones Rash Low 11/08/2017 Medications amLODIPine (NORVASC) 10 MG tablet Take 10 mg by mouth daily. Active albuterol 90 mcg/actuation inhaler Inhale 2 puffs into the lungs every 6 (six) hours as needed. Active therapeutic multivitamin tablet Take 1 tablet by mouth daily. Active levothyroxine (SYNTHROID,LEVOTH ROID) 25 MCG tablet Take 1 tablet by mouth every morning. 02/11/2023 Active rasagiline (AZILECT) 1 mg Take 1 tablet by mouth every morning. 03/01/2023 Active XARELTO 20 mg Tab Take 1 tablet by mouth every morning. 03/01/2023 Active fluticasone furoate (ARNUITY ELLIPTA INHL) Inhale into the lungs. Active carbidopa-levodop a (SINEMET) 25-100 mg per tablet Take 1 tablet by mouth 2 (two) times a day. 09/15/2024 Active Active Problems Problem Noted Date Diagnosed Date Hypercalcemia 07/04/2017 Assessment & Plan (07/06/2017 9:00 AM EDT): Patient with hypercalcemia prior to admission to [facility] and on day of admission. She [...] with Dr. Rose. She will return to [facility] for post-cycle PET CT on 08/13/2017. Primary [...] response. Patient presented for cycle one of RDHAC. Patient received Dex 40mg PO Days 1-4, [...] Dow MD ; Local Oncologist: Dr. 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] Orientation Straight 10/14/2017 9: 38 AM EST Last Filed Vital Signs Vital Sign Reading Time Taken Comments Blood Pressure 148/67 06/16/2025 2:05 PM EDT Pulse 76 06/16/2025 2:05 PM EDT Temperature 37.3 C (99.2 F) 06/16/2025 2:05 PM EDT Respiratory Rate 18 06/16/2025 2:05 PM EDT Oxygen Saturation 99% 06/16/2025 2:05 PM EDT Inhaled Oxygen Concentration - - Weight 68.4 kg (150 lb 12.7 oz) 06/16/2025 2:05 PM EDT Height 152.6 cm (5' 0.08 ) 06/16/2025 2:05 PM ED T Body Mass Index 29.37 06/16/2025 2:05 PM EDT Plan of Treatment Upcoming Encounters Date Type Department Care Team (Late st Contact Info) Description 09/20/2025 2:00 PM EST Blood Draw Laboratory Services, [address], [address] [place] [address] Jovany Dow MD [address] [place] [id number] [email or web address] 09/20/2025 3:00 PM EST Office Visit [facility], Division of Hematologic Oncology, [address], [address] [place] [address] Jovany Dow MD [address] [place] [phone] [email or web address] Health Maintenance Due Date Last Done Comments DEPRESSION SCREENING 1961 OSTEOPOROSIS SCREENING INITIAL (ONE-TIME) 2014 PNEUMOCOCCAL VACCINES (50+ years) (3 of 3 - PPSV23, PCV20 or PCV21) 04/23/2017 03/01/2015, 04/23/2012 INFLUENZA VACCINE (#1) 2025 , 07/02/2024, 06/17/2023, Additional history exists COVID-19 VACCINE ( season) 2025 08/08/2023, 08/08/2023, 07/05/2022, Additional history exists TSH LEVEL 09/15/2025 09/15/2024 BLOOD PRESSURE 12/14/2025 06/16/2025 CREATININE LEVEL 06/16/2026 06/16/2025, 11/2024, 12/14/2024, Additional history exists LIPID PANEL 12/18/2028 12/19/2023, 02/04, 12/15/2017 Adult Td,Tdap Booster 05/08/2032 05/08/2022 , 04/23/2012, 04/03/2004 ZOSTER VACCINES Completed 08/01/2020, 10/2019, 12/01/2019, Additional history exists RSV VACCINE Completed 08/22/2023 HEPATITIS C SCREENING Completed 04/17/2024, 017 SMOKING STATUS SCREENING (Once After 26 Yrs) Completed 03/08/2025 HEPATITIS A VACCINES Aged Out No long er eligible based on patient's age to complete this topic HIB VACCINES Aged Out No longer eligi ble based on patient's age to complete this topic MENINGOCOCCAL VACCINES (ACWY) Aged Out No longer eligible based on patient's age to complete this topic MENINGOCOCCAL VACCINES (B) Aged Out N o longer eligible based on patient's age to complete this topic Medical Devices Not on file Procedures Procedure Name Priority Date/Time Associated Diagnosis Comments LDH Routine 06/16/2025 1:20 PM EDT Diffuse large B-cell lymphoma of lymph nodes of multiple regions HC BLOOD COUNT COMPLETE AUTO&AUTO DIFRNTL WBC Routine 06/16/2025 1:20 PM EDT Diffuse large B-cell lymphoma of lymph nodes of multiple regions COMPREHENSIVE METABOLIC PANEL Routine 06/16/2025 1:20 PM EDT Diffuse large B-cell lymphoma of lymph nodes of multiple regions TSH Routine 09/15/2024 12:59 PM EST HEPATITIS C ANTIBODY WITH REFLEX TO HCV, RNA QUANTITATIVE REAL-TIME PCR Routine 04/17/2024 7:16 AM EDT Diffuse large B-cell lymphoma of lymph nodes of multiple regions LIPID PANEL Routine 12/15/2017 5:04 AM EDT from Last 3 Months or Most Recently Relevant to Health Maintenance Results * (ABNORMAL) LDH (06/16/2025 1:20 PM EDT) LDH 387(H) 135 - 225 U/L [facility] L[facility]# [id number] Blood 06/16/2025 1:20 PM EDT 06/16/2025 1:51 PM EDT us Jovany Dow MD LAB BLOOD ORDERABLES Final Resul t [facility] LIC# [id number] [address] [place] [address] * (ABNORMAL) Comprehensive metabolic panel (06/16/2025 1:20 PM EDT) SODIUM 140 136 - 145 mmol/L [facility] LIC# [id number] POTASSIUM 3.8 3.4 - 5.1 mmol/L [facility] LIC# [id number] CHLORIDE 102 98 - 107 mmol/L [facility] LIC# [id number] CO2 25 22 - 31 mmol/L [facility] LIC# [id number] BUN 11 6 - 23 mg/dL [facility] LIC# [id number] CREATININE 0.88 0.50 - 1.20 mg/dL [facility] LIC# [id number] GLUCOSE 91 70 - 100 mg/dL [facility] LIC# [id number] ALBUMIN 4.7 3.5 - 5.2 g/dL [facility] LIC# [id number] TOTAL PROTEIN 6.6 6.4 - 8.3 g/dL [facility] LIC# [id number] CALCIUM 10.0 8.8 - 10.7 mg/dL [facility] LIC# [id number] ALKALINE PHOSPHATASE 67 35 - 104 U/L [facility] LIC# [id number] TOTAL BILIRUBIN 0.5 0.2 - 1.2 mg/dL [facility] LIC# [id number] AST 23 <33 U/L [facility] LIC# [id number] ALT 11 <34 U/L [facility] LIC# [id number] GLOBULIN 1.9(L) 2.3 - 4.2 g/dL [facility] LIC# [id number] EGFR 68 >59 mL/min/1.7 3m2 [facility] LIC# [id number] Comment:Estimated glomerular filtration rate calculated using the CKD-EPI refit equation. ANION GAP 13 7 - 17 mmol/L [facility] LIC# [id number] Blood 06/16/2025 1:20 PM EDT 06/16/2025 1:51 PM EDT us Jovany Dow MD LAB BLOOD ORDERABLES Final Resul t [facility] LIC# [id number] [address] [place] [address] * (ABNORMAL) CBC and differential (06/16/2025 1:20 PM EDT) WBC 5.31 4.00 - 10.00 K/uL [facility] LIC# [id number] RBC 4.03 3.90 - 6.00 M/uL [facility] LIC# [id number] HGB 12.9 11.5 - 16.4 g/dL [facility] LIC# [id number] HCT 37.5 36.0 - 48.0 % [facility] LIC# [id number] PLT 250 150 - 450 K/uL [facility] LIC# [id number] MCV 93.1 80.0 - 100.0 fL [facility] LIC# [id number] MCH 32.0 27.0 - 32.0 pg [facility] LIC# [id number] MCHC 34.4 32.0 - 36.0 g/dL [facility] LIC# [id number] RDW 13.6 11.5 - 14.5 % [facility] LIC# [id number] MPV 10.2 8.4 - 12.0 fL [facility] LIC# [id number] NRBC 0.00 0 /100 WBCs [facility] LIC# [id number] ABSOLUTE NRBC 0.00 0 K/uL [facility] LIC# [id number] DIFF METHOD MANUAL [facility] LIC# [id number] NEUTS (MANUAL) 81.5(H) 48.0 - 76.0 % [facility] LIC# [id number] LYMPHS 10.0(L) 18.0 - 41.0 % [facility] LIC# [id number] MONOS 3.9(L) 4.0 - 11.0 % [facility] LIC# [id number] EOSINOPHIL 2.3 0.0 - 5.0 % [facility] LIC# [id number] BASOPHIL 2.3(H) 0.0 - 1.5 % [facility] LIC# [id number] BLASTS 0.0 0 % [facility] LIC# [id number] ABSOLUTE NEUTS 4.33 1.92 - 7.60 K/uL [facility] LIC# [id number] ABSOLUTE LYMPHS 0.53(L) 0.72 - 4.10 K/uL [facility] LIC# [id number] ABSOLUTE MONOS 0.21 0.16 - 1.10 K/uL [facility] LIC# [id number] ABSOLUTE EOS 0.12 0.00 - 0.50 K/uL [facility] LIC# [id number] ABSOLUTE BASO 0.12 0.00 - 0.15 K/uL [facility] LIC# [id number] ABSOLUTE BLASTS 0.00 0 K/uL [facility] LIC# [id number] ANISO Few [facility] LIC# [id number] POIKILOCYTOSIS Few [facility] LIC# [id number] OVALOCYTES Few [facility] LIC# [id number] Blood 06/16/2025 1:20 PM EDT 06/16/2025 1:51 PM EDT us Jovany Dow MD LAB BLOOD ORDERABLES Final Resul t [facility] LIC# [id number] [address] [place] [address] * (ABNORMAL) TSH (09/15/2024 12:59 PM EST) TSH 0.06(L) 0.27 - 4.20 uIU/mL [facility] LIC# [id number] 09/15/2024 12:5 9 PM EST 09/15/2024 1:20 PM EST Jovany Dow MD LAB BLOOD ORDERABLES Final Resul t Performing Organization Address City/[facility]/ZIP Co de Phone Number [facility] LIC# [id number] [address] [place] [address] * Hepatitis C Antibody with Reflex to HCV, RNA quantitative Real-Time PCR (04/17/2024 7:16 AM EDT) Pathologist [facility] HCV Ab Negative Negative [facility] Comment: (NOTE) Consumption of high-dose biotin supplement within 12 hours of blood collection for this test can cause false-negative results. Blood 04/17/2024 7:16 AM EDT 04/17/2024 7:20 AM EDT Jovany Dow MD LAB BLOOD ORDERABLES Final Resul t Performing Organization Address [facility] de Phone Number [facility] [address] [place] [address] * (ABNORMAL) Lipid panel (12/15/2017 5:04 AM EDT) CHOLESTEROL 137 <200 mg/dL [facility] TRIGLYCERIDES 340(H) 35 - 150 mg/dL [facility] HDL 17(L) 40 - 80 mg/dL [facility] CALCULATED LDL 52 50 - 129 mg/dL [facility] VLDL 68 mg/dL [facility] CARDIAC RISK RATIO 8.1(H) 0.0 - 4.0 [facility] 12/15/2017 5:04 AM EDT 12/15/2017 6:40 AM EDT Antonio Collins MD LAB BLOOD ORDERABLES [facility] Result Performing Organization Address City/[facility] Co de Phone Number [facility] [address] [place] [phone] from Last 3 Months or Most Recently Relevant to Health Maintenance Insurance MEDICARE PART A & B [employer] PCP REQ SUPPLEMENT MEDICARE PART A & B [employer] PCP REQ SUPPLEMENT MEDICARE PART A & B [employer] PCP REQ SUPPLEMENT MEDICARE PART A & B [employer] PCP REQ SUPPLEMENT MEDICARE PART A & B [facility] MEDEX PCP REQ SUPPLEMENT MEDICARE PART A & B [employer] MEDEX PCP REQ SUPPLEMENT MEDICARE PART A & B [employer] MEDEX PCP REQ SUPPLEMENT MEDICARE PART A & B Member Subscriber Plan / Payer ( fective 2014-Present) Name:Viry Jose Member ID:[id number] Relation to Subscriber:Self Name:Viry Jose Subscriber ID:[id number] Payer ID:[id number] Group ID:Not on file Type:Medicare Address: [facility] [employer] [address] [place] [phone] [employer] MEDEX PCP REQ SUPPLEMENT MEDICARE PART A & B EX PCP REQ SUPPLEMENT MEDICARE PART A & B [employer] PCP REQ SUPPLEMENT MEDICARE PART A & B [employer] PCP REQ SUPPLEMENT Advance Directives For more information, please contact: [phone] (9AM - 5PM Kelsey/[facility], Saturday-Saturday) Documents on File Type Date Recorded Patient Weather Teacher Expl anation Healthcare Proxy 06/21/2017 12:08 PM * Full Code (Confirmed) (Latest Code Status on File) Date Activated Date Inactivated Comments 12/23/2017 9:53 PM 12/27/2017 5:50 PM Question Answer Comments Code Discussion Comments: patient by MD * Full Code (Presumed) Date Activated Date Inactivated Comments 12/23/2017 9:26 PM 12/23/2017 9:52 PM * Full Code (Confirmed) Date Activated Date Inactivated Comments 12/02/2017 3:34 PM 12/18/2017 6:11 PM Question Answer Comments Code Discussion Comments: patient * Full Code (Presumed) Date Activated Date Inactivated Comments 11/28/2017 7:19 AM 11/29/2017 6:13 AM * Full Code (Presumed) Date Activated Date Inactivated Comments 11/07/2017 1:59 PM 11/08/2017 6:10 AM Care Teams Steel Fabricating Supervisor Relationship Specialty Start Date End Date Talya Webber MD [address] [place] [phone] PCP - General Family Medicine 03/09/24 Jovany Dow MD [address] [place] [phone] [email or web address] Primary Oncologist Oncology 06/19/17 Socrates Rose MD [address] [place] [phone] [email or web address] Referring Physician Internal Medicine 06/21/17 Sara Rizvi RN [address] [place], [place] [email or web address] Registered Nurse Client Service Consultant 07/15/17 Dinorah Henson [address] [place], [place] [email or web address]@[email or web address] Grain Grader 10/28/17 Lori Scott, [facility] [address] [place] [address] [email or web address] Hair Salon Manager Oncology 08/13/17 Demetrice Horvath, RN [address] [place] [address] [email or web address] Primary Infusion Nurse 04/17/24 Joyce Haywood, SACHIN [address] [place] [address] EDYTA@[email or web address] Associate Infusion Nurse 05/18/24 Gabriela Rob, RN [address] [place] [address] [email or web address] Associate Infusion Nurse 06/29/24 Alexandra Horowitz MD [address] [place] [address] Neurology 03/08/25 Additional Source Comments The information contained in this document represents components of the legal health record. It is not the complete legal health record.[facility]
--- OUTSIDE RECORDS SUMMARY | 2025-07-09 14:14 | XMS_ITS | Encounter Summary ---
Author Organization [facility] Address [address] [facility] [address] [place] [address] Phone Care Team Providers Care Roof Fixer Name Role Phone Torsten Hernandez MD Primary Care Provider U Jovany Davila MD Unavailable Socrates Rose MD Unavailable [phone] Sara Rizvi RN Unavailable [phone] Dinorah Henson Unavailable Silke [email or web address] [facility] Nita Godfrey RN Unavailable JAMES [email or web address] U Lori Scott [facility] Unavailable [phone] Haris Jo MD Primary Care Provider [phone] Talya Webber MD Primary Care Pr ovider Demetrice Horvath RN Unavailable Romi [email or web address] Joyce Haywood RN Unavailable JAIME [email or web address] Gabriela Rob RN Unavailable LOWELL [email or web address] Alexandra Horowitz MD Unavailable [phone] Encounter Details Date Type Department Care Team (Late st Contact Info) Description 08/01/2020 Procedure Pass Elayne Lank Imaging Department, [facility] [place] [address] [facility], Floor [address] [place] [address] Social History Tobacco Use Types Packs/Day Years [...] 2:00 PM EST Blood Draw Laboratory Services, [facility] [address], [address] [place] [address] Jovany Dow MD [address] [place] [phone] [email or web address] 09/20/2025 3:00 PM EST Office Visit Center for Lymphoma, Division of Hematologic Oncology, [facility] [address] [place] [address], [address] [place] [address] Jovany Dow MD [address] [place] [phone] Carson@[email or web address] documented as of this encounter Visit Diagnoses Not on filedocumented in this encounter Additional Health Concerns Infection Onset Date Last Indicated Resolved Time COVID-19 Comment:Meets severely immunocompromised criteria, contact [facility] for clearance. -- Update Sx improvement 08/28 Negative antigen test 08/28, 09/0208/12/2024 08/13/202409/02 2:14 PM EST documented as of this encounter Care Teams Roof Fixer Relationship Specialty Start Date End Date Torsten Hernandez MD PCP - General Internal Medicine 06/18/17 03/06/21 Haris Jo MD [address] [place] [address] [email or web address] PCP - General Internal Medicine 03/07/21 03/08/24 Talya Webber MD [address] [place] [address] PCP - General Family Medicine 03/09/24 Jovany Dow MD [address] [place] [phone] [email or web address] Primary Oncologist Oncology 06/19/17 Socrates Rose MD [address] [place] [phone] [email or web address] Referring Physician Internal Medicine 06/21/17 Sara Rizvi RN [address] [place] [address] Yvette@[email or web address] Registered Nurse Trim Crew Supervisor 07/15/17 Dinorah Henson [address] [place], [place] [email or web address]@[email or web address] Lithographers Printer 10/28/17 Nita Godfrey, SACHIN [address] [place], [place] [email or web address] Primary Infusion Nurse 11/27/17 04/16/24 Lori Scott, [facility] [address] [place] [address] [email or web address] Gem Stone Cutter Oncology 08/13/17 Demetrice Horvath, SACHIN [address] [place] [address] [email or web address] Primary Infusion Nurse 04/17/24 Joyce Haywood, SACHIN [address] [place] [phone] [email or web address] Associate Infusion Nurse 05/18/24 Gabriela Rob, SACHIN [address] [place] [address] [email or web address] Associate Infusion Nurse 06/29/24 Alexandra Horowitz MD [address] [place] [address] Neurology 03/08/25 documented as of this encounter Additional Source Comments The information contained in this document represents components of the legal health record. It is not the complete legal health record.[facility]
--- OUTSIDE RECORDS SUMMARY | 2025-07-09 14:14 | XMS_ITS | Clinical Summary ---
Author Organization [facility] Address [address] [place] [address] Care Team Providers Care Public Health Registrar Name Role Phone Haris Jo MD Primary Care Provider [phone] Allergies No known active allergies Medications Medication [...] 76 07/08/2023 11:12 AM EDT Temperature 36.6 C (97.8 F) 07/08/2023 11:12 AM EDT Respiratory Rate - - Oxygen Saturation 99% [...] Depression Screening 1961 Preventative Health Evaluation 1967 Fall Risk Assessment 2014 Osteoporosis Screening (DEXA Scan) 2014 Pneumococcal Vaccine (3 of 3 - PPSV23 or PCV20) 03/01/2020 03/01/2015, 04/23/2012 DTap / Tdap / Td (2 - Td or Tdap) 04/23/2022 04/23/2012, 04/03/2004 RSV Adult > 60+ Yrs or (1 - 1-dose 75+ series) 2024 COVID-19 Vaccine (3 - season) 2025 12/30/2020, 12/02/2020 Influenza Vaccine (#1) 2025 3, 07/18/2022, 06/19/2021, Additional history exists Shingrix-Zoster Vaccine Completed 08/01/20 20, 07/07/2020, 12/01/2019, Additional history exists Hepatitis B Vaccines Aged Out No long er eligible based on patient's age to complete this topic RSV Ped < 20 months Aged Out No longe r eligible based on patient's age to complete this topic Care Teams Public Health Registrar Relationship Specialty Start Date End Date Haris Jo MD [address] [place] [address] PCP - General Internal Medicine 06/22/21
== END 2025-07-09 14:24 | disposition home or self-care (01) ==
LOC: HO.HSMS 14:02
PROVIDERS: PCP Family Medicine; Visit Provider Psychiatry & Neurology Neurology
DX: G20.A2 Parkinson's disease without dyskinesia, with fluctuations (principal); R20.2 Paresthesia of skin
CPT/HCPCS: 99214; G2211

== ENCOUNTER → 2025-07-09 14:01 | Outpatient (BNVA) | payer MEDICARE, SELFPAY | PROVIDERS: PCP Family Medicine; Visit Provider Psychiatry & Neurology Neurology | DX: G20.A2 Parkinson's disease without dyskinesia, with fluctuations (principal); R20.2 Paresthesia of skin | CPT/HCPCS: 99212 ==